=== PATIENT | male | born 1980 | race Caucasian/White ===

== ENCOUNTER → 2017-08-18 07:56 | Outpatient (CLI) | payer BC, SELFPAY ==
--- NOTE | 2017-08-18 08:06 | MRI_ITS ---
STUDY: MRI ORBITS WITH AND WITHOUT CONTRAST REASON FOR EXAM: Male, 37 years old. 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 13 ml of Gadavist contrast material was administered intravenously for the contrast portion of the examination. COMPARISON: None. FINDINGS: Normal bilateral globes. Normal bilateral optic nerve sheath complexes and optic nerves. Normal bilateral intraconal and extraconal spaces. Normal bilateral extraocular muscles. Normal optic chiasm and post-chiasmatic tracts. Normal sella turcica, pituitary gland, infundibular stalk, and hypothalamus. Normal bilateral cavernous sinuses. Normal tectal plate and pineal gland. Normal flow voids within the major intracranial circulation suggesting patency by spin echo criteria. Normal size of the ventricles and extra-axial spaces for the patient's age. Normal white matter tracts of the supratentorial brain. Normal bilateral basal ganglia. Normal thalami. There is no extra-axial fluid accumulation. Normal midbrain, ernestine and medulla. Normal cerebellum. Normal basal cisterns. MRI/Brain W/WO Contrast IMPRESSION: Normal enhanced and unenhanced MRI of the orbits. Electronically Signed: Bobby Tom MD at 10:02 EDT Tel , Service support ,
== END ==
PROVIDERS: Family Provider Family Medicine; PCP Family Medicine; Visit Provider Ophthalmology
DX: H05.20 Unspecified exophthalmos (principal); H53.461 Homonymous bilateral field defects, right side
CPT/HCPCS: 70553; A9585

== ENCOUNTER → 2024-09-19 | Outpatient (CLI) | payer BC, SELFPAY ==
[2024-09-19 15:10] LABS: Basophil# 0.06 X10^3/uL; Basophil% 0.8 % (0-1); Eosinophil# 0.34 X10^3/uL; Eosinophils% 4.6 % (0-5); Hematocrit 48.1 % (40-54); Hemoglobin 15.5 g/dL (13.0-16.5); Lymphocyte % 28.3 % (19-41); Mean Corp Hgb Conc 32.2 g/dL (32-36); Mean Corpuscular Hgb 29.4 pg (27.0-32.0); Mean Corpuscular Volume 91.1 fL (80-94); Mean Platelet Vol. 10.4 fl (6.2-12.0); Monocyte# 0.91 X10^3/uL; Monocyte% 12.3 % (0-10); NRBC Flagged by Analyzer 0 % (0-5); Neutrophil # 3.97 X10^3/uL (2.7-7.7); Neutrophil % 53.6 % (47-70); Platelet Count 317 K/mm3 (150-450); RBC Distribution Width CV 13.6 % (11.6-14.6); RBC Distribution Width SD 45.8 fl (35.1-43.9); Red Blood Count 5.28 M/mm3 (4.6-6.2); White Blood Count 7.4 K/mm3 (4.4-11.0)
[2024-09-19 16:20] LABS: Bacteria 0 SEEN /hpf (None Seen); Mucous, Urine 0 SEEN /hpf (<or=2+); Red Blood Cells-Urine 0 SEEN /hpf (0-5); Squamous Epithelial Cells - UA 0 SEEN /hpf (0-5); White Blood Cells 0 SEEN /hpf (0-5)
[2024-09-19 16:37] LABS: ALB/GLOB Ratio 1.1 RATIO (0.9-2.4); AST(SGOT) 37 U/L (<=37); Alanine Aminotransfer ALT/SGPT 61 U/L (<=46); Albumin, Serum 4.2 g/dL (3.5-5.0); Alkaline Phosphatase 80 U/L (40-129); Anion Gap 12 (5-15); BUN 12 mg/dL (4-19); BUN/Creat Ratio 11.5 RATIO (10-20); Calcium,Total 9.2 mg/dL (7.6-11.0); Carbon Dioxide 24.2 mmol/L (21.0-32.0); Chloride 103 mmol/L (98-108); Cholesterol 195 mg/dL (<=200); Creatinine, Serum 1.01 mg/dL (0.70-1.20); EST Glomerular Filtration Rate 94 (>60); Globulin 3.7 g/dL (2.2-4.2); Glucose 87 mg/dL (70-99); High Density Lipoprotein 34 mg/dL; Low Density Lipoprotein Calc. 139 mg/dL; Magnesium 2.1 mg/dL (1.5-2.2); Potassium 4.2 mmol/L (3.3-5.1); Protein, Total 7.9 g/dL (5.9-8.4); Sodium Level 139 mmol/L (133-145); Triglycerides 109 mg/dL; Very Low Density Lipoprotein 22 mg/dL (5-40); Vitamin D,25 Hydroxy 35.1 ng/mL (30-100); cholesterol:hdl ratio screen 5.67
[2024-09-19 22:25] LABS: Color, Urine Straw (Yellow); Glucose, Dipstick Normal (Normal); Ketone-Dipstick Negative (Negative); Leukocyte Esterase-Dipstick Negative /ul (Negative); Nitrite-Dipstick Negative (Negative); Occult Blood-Urine Negative /ul (Negative); Protein-Dipstick 15 mg/dl (Negative); Specific Gravity, Urine 1.005 (1.002-1.030); Urine Bilirubin Dipstick Negative (Negative); Urine Clarity Clear (Clear); Urine Urobilinogen Normal (Normal)
[2024-09-23 12:54] LABS: Hepatitis B Surface Antigen Nonreactive (Nonreactive); Hepatitis C Antibody Nonreactive (Nonreactive)
== END | disposition home or self-care (01) ==
PROVIDERS: PCP Family Medicine; Referring Provider Family Medicine; Visit Provider Family Medicine
DX: R79.89 Other specified abnormal findings of blood chemistry (principal); I10 Essential (primary) hypertension
CPT/HCPCS: 36415; 80053; 80061; 81001; 82306; 83735; 84443; 85025; 86803; 87340

== ENCOUNTER → 2024-09-25 | Outpatient (CLI) | payer BC, SELFPAY ==
[2024-09-25 18:14] LABS: Hepatitis B Surface Antibody Nonreactive
[2024-09-25 18:30] LABS: Hepatitis B Surface Antigen Nonreactive (Nonreactive); Hepatitis C Antibody Nonreactive (Nonreactive)
== END | disposition home or self-care (01) ==
LOC: MTLAB 15:17
PROVIDERS: Family Medicine; PCP Family Medicine; Referring Provider Family Medicine; Visit Provider Family Medicine
DX: R79.89 Other specified abnormal findings of blood chemistry (principal)
CPT/HCPCS: 36415; 86706; 86803; 87340

== ENCOUNTER → 2024-09-29 | Outpatient (CLI) | payer BC, SELFPAY ==
--- NOTE | 2024-09-29 15:15 | US_ITS ---
PROCEDURE: KIDNEY AND BLADDER 09/29/2024 REASON FOR EXAM: EARLY ONSET HTN TECHNIQUE: Bilateral renal ultrasound. COMPARISON: None FINDINGS: RIGHT Kidney Size: 11.3 cm x 5.7 cm x 5.8 cm Volume: 195.3 mL Cortical Thickness (if discernible): 1.3 cm (>6mm is normal) LEFT Kidney Size: 12.3 cm x 5.2 cm x 4.9 cm Volume: 163.4 mL Cortical Thickness (if discernible): 1.4 cm (>6mm is normal) Bladder: Unremarkable. No bladder wall thickening. US/Kidney and Bladder IMPRESSION: NORMAL RENAL ULTRASOUND. Reading Location: [place] [id number]
--- OUTSIDE RECORDS SUMMARY | 2024-09-29 23:59 | XMS RPT_ITS | CCD ---
Author Organization [facility] Care Team Providers Care Assembler Faucets Name Role Phone Sanchez Green MD Primary Care Provider [phone] SANCHEZ GREEN Attending SANCHEZ Watkins Primary Care Unavailable SANCHEZ GREEN Referring Unavailable SANCHEZ GREEN Primary Care Unavailable SANCHEZ GREEN Referring Unavailable SANCHEZ GEREN Primary Care Unavailable SANCHEZ GREEN Attending Unavailable SANCHEZ GREEN Primary Care Unavailable SANCHEZ GREEN Attending Unavailable SANCHEZ GREEN Primary Care Unavailable SANCHEZ GREEN Attending Unavailable SANCHEZ GREEN Primary Care Unavailable SHAN MAI Attending Unavailable SANCHEZ GREEN Referring Unavailable SANCHEZ GREEN Primary Care Unavailable CARL MASTERSON Attending Unavailable SANCHEZ GREEN Referring Unavailable SANCHEZ GREEN Primary Care Unavailable CARL MASTERSON Attending Unavailable SANCHEZ GRENE Referring Unavailable SANCHEZ GREEN Primary Care Unavailable CARL MASTERSON Attending Unavailable SANCHEZ GREEN Referring Unavailable SANCHEZ GREEN Primary Care Unavailable SANCHEZ GREEN Referring Unavailable SANCHEZ GREEN Primary Care Unavailable Sanchez Green MD Primary Care Provider [phone] Duncan Carter Referring Unavailable Duncan Carter Attending Unavailable Duncan Carter Primary Care Unavailable Duncan Carter Referring Unavailable Duncan Carter Attending Unavailable Duncan Carter Primary Care Unavailable Duncan Carter Referring Unavailable Duncan Carter Attending Unavailable Duncan Carter Primary Care Unavailable Duncan Carter Referring Unavailable Duncan Carter Attending Unavailable Sanchez Green Primary Care Unavailable Dr. Sanchez Green MD Primary Care Provider Dr. Duncan Carter MD Attending Provider Dr. Duncan Carter MD Referring Provider Allergies Allergy Classification Reported Allergen(s) Allergy Type Date of Onset Reaction(s) Facility (20 sources) Codeine; Translations: [CODEINE] Drug Allergy 5 purple spots in skin [facility] (20 sources) Ibuprofen; Translations: [IBUPROFEN] Drug Allergy 5 Swelling [facility] (1 source) Codeine Drug Allergy 7 [facility] (1 source) Ibuprofen Drug Allergy 7 [facility] Medications Current Medications Medication Drug Class(es) Dates Sig (Normalized) Sig (Original) [id number] 200 actuat albuterol 0.09 mg/actuat metered dose inhaler (10 sources) beta2-Adrenergic Agonist Start: 06-28-2023 take 2 puff(s) by mouth four times daily as needed for cough albuterol HFA (PROVENTIL HFA, VENTOLIN HFA) 90 mcg/actuation inhaler INHALE 2 PUFFS BY MOUTH 4 TIMES DAILY NEEDED FOR SHORTNESS OF BREATH OR WHEEZING OR COUGH 06/28/2023 Active BIPAP (19 sources) Start: 12-25-2023 BIPAP Initiate BiPAP @ 10 and 14 cm of water with humidification. Mask (per patient preference) optional chin strap (if indicated) , filters, tubing, humidifier and lifetime supplies. 12/25/2023 Active Start: 08-16-2023 End: 12-25-2023 BIPAP Initiate BiPAP @ 9 and 13 cm of water with humidification. Mask (per patient preference) optional chin strap (if indicated) , filters, tubing, humidifier and lifetime supplies. 08/16/2023 12/25/2023 Discontinued Start: 08-16-2023 BIPAP Initiate BiPAP @ 9 and 13 cm of water with humidification. Mask (per patient preference) optional chin strap (if indicated) , filters, tubing, humidifier and lifetime supplies. 0 08/16/2023 Active Start: 05-04-2023 End: 08-16-2023 BIPAP Initiate BiPAP @ 8 and 12 cm of water with humidification. Mask (per patient preference) optional chin strap (if indicated) , filters, tubing, humidifier and lifetime supplies. 0 05/04/2023 08/16/2023 Discontinued Start: 03-02-2020 End: 02-22-2023 BIPAP Initiate BiPAP @ cm of water with humidification. Mask (per patient preference) optional chin strap (if indicated) , filters, tubing, humidifier and lifetime supplies. Pressure at 10 and 6 1 Device 03/02/2020 02/22/2023 Discontinued Start: 03-02-2020 End: 02-22-2023 BIPAP Initiate BiPAP @ cm of water with humidification. Mask (per patient preference) optional chin strap (if indicated) , filters, tubing, humidifier and lifetime supplies. Pressure at 10 and 6 1 Device 0 03/02/2020 02/22/2023 Discontinued Start: 03-02-2020 BIPAP Initiate BiPAP @ cm of water with humidification. Mask (per patient preference) optional chin strap (if indicated) , filters, tubing, humidifier and lifetime supplies. Pressure at 10 and 6 1 Device 0 03/02/2020 Active Comment on above: Initiate BiPAP @ cm of water with humidification. Mask (per patient preference) optional chin strap (if indicated) , filters, tubing, humidifier and lifetime supplies. Pressure at 10 and 6 120 actuat budesonide 0.18 mg/actuat dry powder inhaler (10 sources) Corticosteroid Start: take 2 puff(s) by mouth once daily PULMICORT FLEXHALER 180 mcg/actuation aepb INHALE 2 PUFFS BY MOUTH ONCE DAILY WITH GOOD ORAL CARE 07/24/2023 Active ergocalciferol 1.25 mg oral capsule (1 source) Provitamin D2 Compound Start: take 1 tablet by mouth two times weekly, then take 1 tablet by mouth every week ergocalciferol 50,000 unit capsule (VITAMIN D2, DRISDOL) Indications: Vitamin D deficiency Take 1 tablet by mouth twice weekly [id number], then decrease to 1 tablet weekly. 16 capsule 3 03/28/2024 Active Start: 03-28-2024 take 1 tablet by glenys th two times weekly, then take 1 tablet by mouth every week ergocalciferol 50,000 unit capsule (VITAMIN D2, DRISDOL) Indications: Vitamin D deficiency Take 1 tablet by mouth twice weekly [id number], then decrease to 1 tablet weekly. 16 capsule 3 03/28/2024 Active fluticasone propionate 0.05 mg/actuat metered dose nasal spray (18 sources) Corticosteroid Start: 02-12-2019 take 1 spray(s) by mouth twice daily fluticasone (FLONASE) 50 mcg/actuation nasal spray Use 1 [place] in each nostril twice daily at 6AM and 9PM. Rinse mouth after use. 02/12/2019 Active Comment on above: Use 1 [place] in each nostril twice daily at 6AM and 9PM. Rinse mouth after use. loratadine 10 mg oral tablet (17 sources) take 1 tablet by mouth once daily loratadine (CLARITIN) 10 mg tablet Take 10 mg by mouth once daily. Active Comment on above: Take 10 mg by mouth once daily. losartan potassium 50 mg oral tablet (2 sources) Angiotensin 2 Receptor Tahir Start: 02-25-2024 End: 02-19-2025 take 1 tablet by mouth once daily losartan (COZAAR) 50 mg tablet Indications: Essential hypertension, benign Take 1 tablet by mouth once daily. 30 tablet 11 02/25/2024 02/19/2025 Active naproxen sodium 220 mg oral tablet (5 sources) Nonsteroidal Anti-inflammatory Drug take 1 tablet by mouth twice daily at mealtime naproxen sodium (ALEVE) 220 mg tablet Take 220 mg by mouth two times a day with meals. Active Completed/Discontinued Medications Medication Drug Class(es) Dates Sig (Normalized) Sig (Original) benzonatate 100 mg oral capsule (1 source) Non-narcotic Antitussive Start: 4 End: 4 take 1 capsule by mouth three times daily as needed for cough benzonatate (TESSALON PERLES) 100 mg capsule Indications: Bronchitis Take 1 capsule by mouth three times a day as needed for cough. 30 capsule 0 05/04/2023 08/16/2023 Discontinued FLUoxetine 10 mg oral capsule (1 source) Serotonin Reuptake Inhibitor Start: 0 End: 0 take 1 capsule by mouth once daily FLUoxetine (PROZAC) 10 mg capsule Take 1 capsule by mouth once daily. 30 capsule 3 05/15/2019 03/02/2020 Discontinued ibuprofen 200 mg oral tablet (4 sources) Nonsteroidal Anti-inflammatory Drug End: take 1 tablet by mouth every six hours as needed ibuprofen (ADVIL) 200 mg tablet Take 200 mg by mouth every 6 hours as needed for pain. 02/25/2024 Discontinued (Side Effects) methylPREDNISolone (2 sources) Corticosteroid Start: End: methylPREDNISolone (MEDROL, [place]LE,) 4 mg Dose-Pack Indications: Acute left ankle pain Follow dosing instructions, take with food. 21 tablet 08/16/2023 08/22/2023 Start: 08-16-2023 End: 08-22-2023 methylPREDNISolone (MEDROL, [place],) 4 mg Dose-Pack Indications: Acute left ankle pain Follow dosing instructions, take with food. 21 tablet 0 08/16/2023 08/22/2023 Active Problems Active Problems Problem Classification Problem Date Documented Da te Episodic/Chronic Abdominal pain (18 sources) Abdominal pain; Translations: [Unspecified abdominal pain] 12-11-2011 Episodic Anxiety disorders (2 sources) Anxiety; Translations: [Anxiety disorder, unspecified] 10-04-2016 Chronic Cardiac dysrhythmias (1 source) Ventricular bigeminy; Translations: [Other specified cardiac arrhythmias] 10-04-2016 Chronic Cardiac dysrhythmias (2 sources) Tachycardia; Translations: [Tachycardia, unspecified] Episodic Disorders of lipid metabolism (1 source) Mixed hyperlipidemia; Translations: [Mixed hyperlipidemia] 03-28-2024 Chronic Essential hypertension (20 sources) Benign essential hypertension; Translations: [Essential (primary) hypertension] Onset: 04-05-2011 04-05-2011 Chronic Immunizations and screening for infectious disease (3 sources) Needs influenza immunization; Translations: [Encounter for immunization] Episodic Nonspecific chest pain (2 sources) Chest pain; Translations: [Chest pain, unspecified] Episodic Nutritional deficiencies (5 sources) Vitamin D deficiency; Translations: [Vitamin D deficiency, unspecified] Onset: 08-16-2023 Chronic Other circulatory disease (1 source) H/O: hypertension; Translations: [Personal history of other diseases of the circulatory system] 10-04-2016 Episodic Comment on above: Not currently on med ication. Hypertension resolved with 100 pound weight loss Other connective tissue disease (13 sources) Pain in lower limb; Translations: [Pain in unspecified foot] Onset: 01-15-2024 12-25-2023 Episodic Other connective tissue disease (1 source) Plantar fasciitis; Translations: [Plantar fascial fibromatosis] 01-15-2024 Episodic Other connective tissue disease (1 source) Swelling of right foot; Translations: [Other specified soft tissue disorders] 03-02-2020 Episodic Other connective tissue disease (1 source) Pain in right foot; Translations: [Pain in right foot] 03-02-2020 Episodic Other connective tissue disease (1 source) Pain in unspecified foot; Translations: [Foot and ankle pain] Onset: 01-15-2024 Episodic Other non-traumatic joint disorders (1 source) Shoulder pain; Translations: [Pain in right shoulder] Episodic Other non-traumatic joint disorders (2 sources) Pain in left knee; Translations: [Pain in joint, lower leg] Episodic Other non-traumatic joint disorders (2 sources) Acute ankle pain; Translations: [Pain in left ankle and joints of left foot] 08-16-2023 Episodic Other non-traumatic joint disorders (1 source) Pain of right wrist; Translations: [Pain in right wrist] 01-11-2021 Episodic Other non-traumatic joint disorders (1 source) Pain in unspecified ankle and joints of unspecified foot; Translations: [Foot and ankle pain] Onset: 01-15-2024 Episodic Other nutritional; endocrine; and metabolic disorders (20 sources) Obesity; Translations: [Obesity, unspecified] Onset: 01-21-2005 Chronic Other nutritional; endocrine; and metabolic disorders (1 source) Severe obesity; Translations: [Class 3 severe obesity with body mass index (BMI) of 40.0 to 44.9 in adult, unspecified obesity type, unspecified whether serious comorbidity present (HCC)] 03-28-2024 Chronic Other screening for suspected conditions (not mental disorders or infectious disease) (2 sources) Other specified abnormal findings of blood chemistry; Translations: [Other specified abnormal findings of blood chemistry] Onset: 09-25-2024 Episodic Other upper respiratory disease (19 sources) Allergic rhinitis; Translations: [Allergic rhinitis, unspecified] Onset: 01-21-2005 02-12-2019 Chronic Residual codes; unclassified (20 sources) Obstructive sleep apnea syndrome; Translations: [Obstructive sleep apnea (adult) (pediatric)] Onset: 01-21-2005 Chronic Residual codes; unclassified (2 sources) Family history of cardiac disorder; Translations: [Family history of ischemic heart disease and other diseases of the circulatory system] Episodic Residual codes; unclassified (1 source) Sleep deprivation; Translations: [Sleep deprivation] 10-04-2016 Episodic Past or Other Problems Problem Classification Problem Date Documented Da te Episodic/Chronic Other circulatory disease (19 sources) Elevated blood-pressure reading without diagnosis of hypertension; Translations: [Elevated blood-pressure reading, without diagnosis of hypertension] Onset: 01-21-2005 Episodic Other gastrointestinal disorders (18 sources) Diarrhea; Translations: [Diarrhea, unspecified] Onset: 01-11-2012 01-11-2012 Episodic Other non-traumatic joint disorders (1 source) Pain in left ankle and joints of left foot; Translations: [Acute left ankle pain] Onset: 08-16-2023 Episodic Results Test Name Value Interpretation Reference Range Facility Hepatitis B Surface Antibody on 09-25-2024 HEP B Surf Ab Non-Reactive Normal [facility] Comment on above: Result Comment: <8.5 mIU/mL: Non-Reactive 8.5<= x <11.5 mIU/mL: Indeterminate >=11.5 mIU/mL: Reactive Non Reactive: Inconsistent with immunity less than <10 mIU/mL Reactive: Consistent with immunity greater than or equal to 10 mIU/mL Performed By: #### L 3890.6102, L3890.6301, L3890.6202 #### [facility] [address] [place], [address] Hepatitis C Antibodyon 09-25 Hepatitis C Ab Non-Reactive Normal Nonreactive [facility] Comment on above: Result Comment: Reac tive: Presumptive evidence of antibodies to HCV. Follow CDC recommendations for supplemental testing. Non-Reactive: Antibodies to HCV were not detected; does not exclude the possibility of exposure to HCV Reactive Results are presumptive evidence of antibodies to HCV. Follow CDC recommendations for supplemental testing. Order confirmation testing: HCV Quant by PCR testing - HCVPCR #[id number] Non Reactive: < 0.8 Equivocal: >/= 0.8 to < 1.0 Reactive: >/= 1.0 The CDC requires that a reactive/equivocal HCV antibody result be sent out for confirmation. HCV Quant by PCR testing. Performed By: #### L 3890.6102, L3890.6301, L3890.6202 #### [facility] [address] [place], [address] L3890.6102on 09-25-2024 HEP B Surf Ag Non-Reactive Normal Nonreactive [facility] Comment on above: Result Comment: Reac tive: Presumptive evidence of HBV. Repeatedly reactive samples must be confirmed using a neutralization test ([employer] HBsAg Confirmatory Test) Non-Reactive: HBsAg not detected; does not exclude the possibility of exposure to HBV Performed By: #### L 3890.6102, L3890.6301, L3890.6202 #### [facility] [address] [place], [address] Hepatitis C Antibodyon 09-23 Hepatitis C Ab Non-Reactive Normal Nonreactive [facility] Comment on above: Order Comment: Order Date: 09/19/24 Order Info: [id number] - CMP Order Info: [id number] - LIPID Order Info: [id number] - MG Order Info: [id number] - TSH Result Comment: Reac tive: Presumptive evidence of antibodies to HCV. Follow CDC recommendations for supplemental testing. Non-Reactive: Antibodies to HCV were not detected; does not exclude the possibility of exposure to HCV Reactive Results are presumptive evidence of antibodies to HCV. Follow CDC recommendations for supplemental testing. Order confirmation testing: HCV Quant by PCR testing - HCVPCR #[id number] Non Reactive: < 0.8 Equivocal: >/= 0.8 to < 1.0 Reactive: >/= 1.0 The CDC requires that a reactive/equivocal HCV antibody result be sent out for confirmation. HCV Quant by PCR testing. Performed By: #### L 500.4100, L501.5200, L100.0100, L501.9520, L500.4050 #### [facility] [address] [place], [address] L3890.6102on 09-23-2024 HEP B Surf Ag Non-Reactive Normal Nonreactive [facility] Comment on above: Order Comment: Order Date: 09/19/24 Order Info: [id number] - CMP Order Info: [id number] - LIPID Order Info: [id number] - MG Order Info: [id number] - TSH Result Comment: Reac tive: Presumptive evidence of HBV. Repeatedly reactive samples must be confirmed using a neutralization test ([employer] HBsAg Confirmatory Test) Non-Reactive: HBsAg not detected; does not exclude the possibility of exposure to HBV Performed By: #### L 500.4100, L501.5200, L100.0100, L501.9520, L500.4050 #### [facility] [address] [place], [address] Absolute lymphocyte countOrd ered By: Duncan Carter on 09-19-2024 Lymphocytes Auto (Unsp spec) [#/Vol] 2.10 10*3/uL 0.83-4.51 [facility] Absolute neutrophil countOrd ered By: Duncan Carter on 09-19-2024 Neutrophils (Bld) [#/Vol] 4.0 10*3/uL 2.0-7.7 [facility] Anion gap in Serum or Plasma Ordered By: Duncan Carter on 09-19-2024 Anion gap [Moles/Vol] 12 mmol/L 5-15 [facility] Automated lymphocyte count a s percentage of total leukocytesOrdered By: Duncan Carter on 09-19-2024 Lymphocytes/100 WBC Auto (Unsp spec) 28.3 % 19-41 [facility] BUN/creatinine ratioOrdered By: Duncan Carter on 09-19-2024 Urea nitrogen/Creatinine [Mass ratio] 11.5 mg/mg 10-20 [facility] Basophil percentageOrdered B y: Duncan Carter on 09-19-2024 Basophils/100 WBC (Bld) 0.8 % 0-1 [facility] Bilirubin Test strip Ql (U)O rdered By: Duncan Carter on 09-19-2024 Bilirubin Ql (U) Negative Negative [facility] Bilirubin, totalOrdered By: Duncan Carter on 09-19-2024 Bilirubin [Mass/Vol] 0.50 mg/dL 0.00-1.30 [facility] CBC W/Diff, Automatedon 05-3 0-2025 Absolute Lymph 2.10 X10 3/uL Normal 0.83-4.51 [facility] Comment on above: Order Comment: Order Date: 09/19/24 Order Info: [id number] - CBCD Performed By: #### L 500.4100, L501.5200, L100.0100, L501.9520, L500.4050 #### [facility] [address] [place], [address] Absolute Neut 4.0 X10 3/uL Normal 2.0-7.7 [facility] Comment on above: Order Comment: Order Date: 09/19/24 Order Info: [id number] - CBCD Performed By: #### L 500.4100, L501.5200, L100.0100, L501.9520, L500.4050 #### [facility] [address] [place], [address] Basophils/100 WBC (Bld) 0.8 % Normal 0-1 [facility] Comment on above: Order Comment: Order Date: 09/19/24 Order Info: [id number] - CBCD Performed By: #### L 500.4100, L501.5200, L100.0100, L501.9520, L500.4050 #### [facility] [address] [place], [address] Eosinophils/100 WBC (Bld) 4.6 % Normal 0-5 [facility] Comment on above: Order Comment: Order Date: 09/19/24 Order Info: [id number] - CBCD Performed By: #### L 500.4100, L501.5200, L100.0100, L501.9520, L500.4050 #### [facility] [address] [place], [address] Erythrocyte distribution width (RBC) [Ratio] 13.6 % Normal 11.6-14.6 [facility] Comment on above: Order Comment: Order Date: 09/19/24 Order Info: [id number] - CBCD Performed By: #### L 500.4100, L501.5200, L100.0100, L501.9520, L500.4050 #### [facility] [address] [place], [address] Hematocrit (Bld) [Volume fraction] 48.1 % Normal 40-54 [facility] Comment on above: Order Comment: Order Date: 09/19/24 Order Info: [id number] - CBCD Performed By: #### L 500.4100, L501.5200, L100.0100, L501.9520, L500.4050 #### [facility] [address] [place], [address] Hemoglobin (Bld) [Mass/Vol] 15.5 g/dL Normal 13.0-16.5 [facility] Comment on above: Order Comment: Order Date: 09/19/24 Order Info: [id number] - CBCD Performed By: #### L 500.4100, L501.5200, L100.0100, L501.9520, L500.4050 #### [facility] [address] [place], [address] IG% 0.400 Normal 0.0-0.9 [facility] Comment on above: Order Comment: Order Date: 09/19/24 Order Info: [id number] - CBCD Result Comment: IG% - Immature Granulocytes (promyelocytes, myelocytes and metamyelocytes) > 1% indicates that a LEFT SHIFT is Present. Performed By: #### L 500.4100, L501.5200, L100.0100, L501.9520, L500.4050 #### [facility] [address] [place], [address] Lymphocytes/100 WBC (Bld) 28.3 % Normal 19-41 [facility] Comment on above: Order Comment: Order Date: 09/19/24 Order Info: [id number] - CBCD Performed By: #### L 500.4100, L501.5200, L100.0100, L501.9520, L500.4050 #### [facility] [address] [place], [address] MCH (RBC) [Entitic mass] 29.4 pg Normal 27.0-32.0 [facility] Comment on above: Order Comment: Order Date: 09/19/24 Order Info: [id number]- - CBCD Performed By: #### L 500.4100, L501.5200, L100.0100, L501.9520, L500.4050 #### [facility] [address] [place], [address] MCHC (RBC) [Mass/Vol] 32.2 g/dL Normal 32-36 [facility] Comment on above: Order Comment: Order Date: 09/19/24 Order Info: [id number]- - CBCD Performed By: #### L 500.4100, L501.5200, L100.0100, L501.9520, L500.4050 #### [facility] [address] [place], [address] MCV (RBC) [Entitic vol] 91.1 fL Normal 80-94 [facility] Comment on above: Order Comment: Order Date: 09/19/24 Order Info: [id number]- - CBCD Performed By: #### L 500.4100, L501.5200, L100.0100, L501.9520, L500.4050 #### [facility] [address] [place], [address] Monocytes/100 WBC (Bld) 12.3 % High 0-10 [facility] Comment on above: Order Comment: Order Date: 09/19/24 Order Info: [id number]- - CBCD Performed By: #### L 500.4100, L501.5200, L100.0100, L501.9520, L500.4050 #### [facility] [address] [place], [address] Neutrophils/100 WBC (Bld) 53.6 % Normal 47-70 [facility] Comment on above: Order Comment: Order Date: 09/19/24 Order Info: [id number] - CBCD Performed By: #### L 500.4100, L501.5200, L100.0100, L501.9520, L500.4050 #### [facility] [address] [place], [address] Nucleated RBC (Bld) [#/Vol] 0 10*3/uL Normal 0-5 [facility] Comment on above: Order Comment: Order Date: 09/19/24 Order Info: [id number] - CBCD Performed By: #### L 500.4100, L501.5200, L100.0100, L501.9520, L500.4050 #### [facility] [address] [place], [address] Platelet mean volume (Bld) [Entitic vol] 10.4 fL Normal 6.2-12.0 [facility] Comment on above: Order Comment: Order Date: 09/19/24 Order Info: [id number] - CBCD Performed By: #### L 500.4100, L501.5200, L100.0100, L501.9520, L500.4050 #### [facility] [address] [place], [address] Platelets (Bld) [#/Vol] 317 10*3/uL Normal 150-450 [facility] Comment on above: Order Comment: Order Date: 09/19/24 Order Info: [id number] - CBCD Performed By: #### L 500.4100, L501.5200, L100.0100, L501.9520, L500.4050 #### [facility] [address] [place], [address] RBC (Bld) [#/Vol] 5.28 10*6/uL Normal 4.6-6.2 [facility] Comment on above: Order Comment: Order Date: 09/19/24 Order Info: [id number] - CBCD Performed By: #### L 500.4100, L501.5200, L100.0100, L501.9520, L500.4050 #### [facility] [address] [place], [address] RDW SD 45.8 fl High 35.1-43.9 [facility] Comment on above: Order Comment: Order Date: 09/19/24 Order Info: [id number] - CBCD Performed By: #### L 500.4100, L501.5200, L100.0100, L501.9520, L500.4050 #### [facility] [address] [place], [address] WBC (Bld) [#/Vol] 7.4 10*3/uL Normal 4.4-11.0 [facility] Comment on above: Order Comment: Order Date: 09/19/24 Order Info: [id number] - CBCD Performed By: #### L 500.4100, L501.5200, L100.0100, L501.9520, L500.4050 #### [facility] [address] [place], [address] Calculated very low density lipoprotein (VLDL) cholesterol measurementOrdered By: Duncan Carter on 09-19-2024 Calculated very low density lipoprotein (VLDL) cholesterol measurement 22 mg/dL 5-40 [facility] Carbon dioxide, total [Moles /volume] in Central venous bloodOrdered By: Duncan Carter on 09-19-2024 CO2 [Moles/Vol] 24.2 mmol/L 21.0-32.0 [facility] Chloride assayOrdered By: Noni Carter on 09-19-2024 Chloride [Moles/Vol] 103 mmol/L 98-108 [facility] Comprehensive Metabolic Prof ilon 09-19-2024 Albumin [Mass/Vol] 4.2 g/dL Normal 3.5-5.0 [facility] Comment on above: Order Comment: Order Date: 09/19/24 Order Info: [id number] - CMP Order Info: [id number] - LIPID Order Info: [id number] - MG Order Info: [id number] - TSH Performed By: #### L 500.4100, L501.5200, L100.0100, L501.9520, L500.4050 #### [facility] [address] [place], [address] Albumin/Globulin [Mass ratio] 1.1 {ratio} Normal 0.9-2.4 [facility] Comment on above: Order Comment: Order Date: 09/19/24 Order Info: [id number]- - CMP Order Info: [id number] - LIPID Order Info: [id number] - MG Order Info: 3 - TSH Performed By: #### L 500.4100, L501.5200, L100.0100, L501.9520, L500.4050 #### [facility] [address] [place], [address] ALK PHOS 80 U/L Normal 40-129 [facility] Comment on above: Order Comment: Order Date: 09/19/24 Order Info: [id number]- - CMP Order Info: [id number] - LIPID Order Info: [id number] - MG Order Info: 3015-3 - TSH Performed By: #### L 500.4100, L501.5200, L100.0100, L501.9520, L500.4050 #### [facility] [address] [place], [address] ALT [Catalytic activity/Vol] 61 U/L High <=46 [facility] Comment on above: Order Comment: Order Date: 09/19/24 Order Info: [id number] - CMP Order Info: [id number] - LIPID Order Info: [id number] - MG Order Info: [id number] - TSH Performed By: #### L 500.4100, L501.5200, L100.0100, L501.9520, L500.4050 #### [facility] [address] [place], [address] AST [Catalytic activity/Vol] 37 U/L Normal <=37 [facility] Comment on above: Order Comment: Order Date: 09/19/24 Order Info: [id number] - CMP Order Info: [id number] - LIPID Order Info: [id number] - MG Order Info: 3016-3 - TSH Performed By: #### L 500.4100, L501.5200, L100.0100, L501.9520, L500.4050 #### [facility] [address] [place], [address] Bilirubin [Mass/Vol] 0.50 mg/dL Normal 0.00-1.30 [facility] Comment on above: Order Comment: Order Date: 09/19/24 Order Info: [id number]- - CMP Order Info: [id number] - LIPID Order Info: [id number] - MG Order Info: 3016-3 - TSH Performed By: #### L 500.4100, L501.5200, L100.0100, L501.9520, L500.4050 #### [facility] [address] [place], [address] BUN/CRE 11.5 RATIO Normal 10-20 [facility] Comment on above: Order Comment: Order Date: 09/19/24 Order Info: [id number] - CMP Order Info: [id number] - LIPID Order Info: [id number] - MG Order Info: [id number] - TSH Performed By: #### L 500.4100, L501.5200, L100.0100, L501.9520, L500.4050 #### [facility] [address] [place], [address] Calcium [Mass/Vol] 9.2 mg/dL Normal 7.6-11.0 [facility] Comment on above: Order Comment: Order Date: 09/19/24 Order Info: [id number] - CMP Order Info: - LIPID Order Info: [id number] - MG Order Info: 3016-3 - TSH Performed By: #### L 500.4100, L501.5200, L100.0100, L501.9520, L500.4050 #### [facility] [address] [place], [address] Chloride [Moles/Vol] 103 mmol/L Normal 98-108 [facility] Comment on above: Order Comment: Order Date: 09/19/24 Order Info: [id number] - CMP Order Info: - LIPID Order Info: [id number] - MG Order Info: 3015-3 - TSH Performed By: #### L 500.4100, L501.5200, L100.0100, L501.9520, L500.4050 #### [facility] [address] [place], [address] CO2 [Moles/Vol] 24.2 mmol/L Normal 21.0-32.0 [facility] Comment on above: Order Comment: Order Date: 09/19/24 Order Info: [id number] - CMP Order Info: - LIPID Order Info: [id number] - MG Order Info: [id number] - TSH Performed By: #### L 500.4100, L501.5200, L100.0100, L501.9520, L500.4050 #### [facility] [address] [place], [address] Creatinine [Mass/Vol] 1.01 mg/dL Normal 0.70-1.20 [facility] Comment on above: Order Comment: Order Date: 09/19/24 Order Info: 86-1 - CMP Order Info: [id number] - LIPID Order Info: [id number] - MG Order Info: 3016-3 - TSH Performed By: #### L 500.4100, L501.5200, L100.0100, L501.9520, L500.4050 #### [facility] [address] [place], [address] GAP 12 Normal 5-15 [facility] Comment on above: Order Comment: Order Date: 09/19/24 Order Info: [id number] - CMP Order Info: [id number] - LIPID Order Info: [id number] - MG Order Info: 3016-3 - TSH Performed By: #### L 500.4100, L501.5200, L100.0100, L501.9520, L500.4050 #### [facility] [address] [place], [address] GFR/1.73 sq M.predicted among non-blacks MDRD (S/P/Bld) [Vol rate/Area] 94 mL/min/{1.73_m2} Normal >60 [facility] Comment on above: Order Comment: Order Date: 09/19/24 Order Info: [id number] - CMP Order Info: [id number] - LIPID Order Info: [id number] - MG Order Info: 3015-3 - TSH Result Comment: mL/m in/1.73m2 CKD-EPI Creatinine Equation (2020) Performed By: #### L 500.4100, L501.5200, L100.0100, L501.9520, L500.4050 #### [facility] [address] [place], [address] Globulin (S) [Mass/Vol] 3.7 g/dL Normal 2.2-4.2 [facility] Comment on above: Order Comment: Order Date: 09/19/24 Order Info: [id number] - CMP Order Info: [id number] - LIPID Order Info: [id number] - MG Order Info: [id number] - TSH Performed By: #### L 500.4100, L501.5200, L100.0100, L501.9520, L500.4050 #### [facility] [address] [place], [address] Glucose [Mass/Vol] 87 mg/dL Normal 70-99 [facility] Comment on above: Order Comment: Order Date: 09/19/24 Order Info: [id number] - CMP Order Info: - LIPID Order Info: [id number] - MG Order Info: [id number] - TSH Performed By: #### L 500.4100, L501.5200, L100.0100, L501.9520, L500.4050 #### [facility] [address] [place], [address] Potassium [Moles/Vol] 4.2 mmol/L Normal 3.3-5.1 [facility] Comment on above: Order Comment: Order Date: 09/19/24 Order Info: [id number]- - CMP Order Info: - LIPID Order Info: [id number] - MG Order Info: [id number] - TSH Performed By: #### L 500.4100, L501.5200, L100.0100, L501.9520, L500.4050 #### [facility] [address] [place], [address] Sodium [Moles/Vol] 139 mmol/L Normal 133-145 [facility] Comment on above: Order Comment: Order Date: 09/19/24 Order Info: [id number]- - CMP Order Info: [id number] - LIPID Order Info: [id number] - MG Order Info: [id number] - TSH Performed By: #### L 500.4100, L501.5200, L100.0100, L501.9520, L500.4050 #### [facility] [address] [place], [address] T PROT 7.9 g/dL Normal 5.9-8.4 [facility] Comment on above: Order Comment: Order Date: 09/19/24 Order Info: [id number] - CMP Order Info: [id number] - LIPID Order Info: [id number] - MG Order Info: [id number] - TSH Performed By: #### L 500.4100, L501.5200, L100.0100, L501.9520, L500.4050 #### [facility] [address] [place], [address] Urea nitrogen [Mass/Vol] 12 mg/dL Normal 4-19 [facility] Comment on above: Order Comment: Order Date: 09/19/24 Order Info: [id number] - CMP Order Info: [id number] - LIPID Order Info: [id number] - MG Order Info: [id number] - TSH Performed By: #### L 500.4100, L501.5200, L100.0100, L501.9520, L500.4050 #### [facility] [address] [place], [address] Eosinophil percentageOrdered By: Duncan Carter on 09-19-2024 Eosinophils/100 WBC (Bld) 4.6 % 0-5 [facility] Erythrocyte distribution wid th ratioOrdered By: Duncan Carter on 09-19-2024 Erythrocyte distribution width (RBC) [Ratio] 13.6 % 11.6-14.6 [facility] Erythrocyte distribution wid th standard deviationOrdered By: Duncan Carter on 09-19-2024 Erythrocyte distribution width (RBC) [Ratio] 45.8 fl High 35.1-43.9 [facility] Glomerular filtration rate ( GFR) estimation/1.73 sq m using serum, plasma, or whole bOrdered By: Duncan Carter on 09-19-2024 GFR/1.73 sq M.predicted among non-blacks MDRD (S/P/Bld) [Vol rate/Area] 94 mL/min/{1.73_m2} >60 [facility] Comment on above: mL/min/1.73m2 CKD-EP I Creatinine Equation (2020) Hematocrit Auto (Bld) [Volum e fraction]Ordered By: Duncan Carter on 09-19-2024 Hematocrit (Bld) [Volume fraction] 48.1 % 40-54 [facility] Hemoglobin measurementOrdere d By: Duncan Carter on 09-19-2024 Hemoglobin (Bld) [Mass/Vol] 15.5 g/dL 13.0-16.5 [facility] Immature granulocytes/100 WB C Auto (Bld)Ordered By: Duncan Carter on 09-19-2024 Immature granulocytes/100 WBC (Bld) 0.400 % 0.0-0.9 [facility] Comment on above: IG% - Immature Granu locytes (promyelocytes, myelocytes and metamyelocytes) > 1% indicates that a LEFT SHIFT is Present. Ketones Test strip Ql (U)Ord ered By: Duncan Carter on 09-19-2024 Ketones Ql (U) Negative Negative [facility] LDL calc ser/plasOrdered By: Duncan Carter on 09-19-2024 Cholesterol in LDL [Mass/Vol] 139 mg/dL [facility] Comment on above: Fwxvsflsum=388-042 m g/dL & Higher Hdve=058 mg/dL or greater Laboratory - Chemistry and C hemistry - challengeOrdered By: Duncan Carter on 09-19-2024 AST [Catalytic activity/Vol] 37 U/L <38 [facility] - Microbiology an d Antimicrobial susceptibilityOrdered By: Duncan Carter on 09-19-2024 HBV surface Ag Ql (S) Non-Reactive Nonreactive [facility] Comment on above: Reactive: Presumptiv e evidence of HBV. Repeatedly reactive samples must be confirmed using a neutralization test ([employer] HBsAg Confirmatory Test)Non-Reactive: HBsAg not detected; does not exclude the possibility of exposure to HBV Lipid Profileon 09-19-2024 CHOL:HDL 5.67 Normal [facility] Comment on above: Order Comment: Order Date: 09/19/24 Order Info: [id number] - CMP Order Info: [id number] - LIPID Order Info: [id number] - MG Order Info: [id number] - TSH Performed By: #### L 500.4100, L501.5200, L100.0100, L501.9520, L500.4050 #### [facility] [address] [place], [address] Cholesterol [Mass/Vol] 195 mg/dL Normal <=200 [facility] Comment on above: Order Comment: Order Date: 09/19/24 Order Info: [id number] - CMP Order Info: [id number] - LIPID Order Info: [id number] - MG Order Info: 3 - TSH Result Comment: Chol esterol level, Desirable <200 mg/dL Borderline high cholesterol 200-239 mg/dL High cholesterol >=240 mg/dL Recommendations of the NCEP Adult Treatment Panel for the following risk-cutoff thresholds for the [place] population. Performed By: #### L 500.4100, L501.5200, L100.0100, L501.9520, L500.4050 #### [facility] [address] [place], [address] Cholesterol in HDL [Mass/Vol] 34 mg/dL Low [facility] Comment on above: Order Comment: Order Date: 09/19/24 Order Info: [id number] - CMP Order Info: [id number] - LIPID Order Info: [id number] - MG Order Info: 3 - TSH Result Comment: Kristal onal Cholesterol Education Program (NCEP) guidelines: <40 mg/dL: Low HDL-cholesterol (major risk factor for CHD) >= 60 mg/dL: High HDL-cholesterol (negative risk factor for CHD) HDL-cholesterol is affected by a number of factors, e.g. smoking, exercise, hormones, sex and age. Performed By: #### L 500.4100, L501.5200, L100.0100, L501.9520, L500.4050 #### [facility] [address] [place], [address] Cholesterol in LDL [Mass/Vol] 139 mg/dL Normal [facility] Comment on above: Order Comment: Order Date: 09/19/24 Order Info: [id number] - CMP Order Info: [id number] - LIPID Order Info: [id number] - MG Order Info: 3015-3 - TSH Result Comment: Bord ydjipa=266-151 mg/dL Higher Dckx=763 mg/dL or greater Performed By: #### L 500.4100, L501.5200, L100.0100, L501.9520, L500.4050 #### [facility] [address] [place], [address] Cholesterol in VLDL [Mass/Vol] 22 mg/dL Normal 5-40 [facility] Comment on above: Order Comment: Order Date: 09/19/24 Order Info: [id number] - CMP Order Info: - LIPID Order Info: [id number] - MG Order Info: [id number] - TSH Performed By: #### L 500.4100, L501.5200, L100.0100, L501.9520, L500.4050 #### [facility] [address] [place], [place], [address] Triglyceride [Mass/Vol] 109 mg/dL Normal [facility] Comment on above: Order Comment: Order Date: 09/19/24 Order Info: [id number] - CMP Order Info: - LIPID Order Info: [id number] - MG Order Info: [id number] - TSH Result Comment: The drugs N-Acetylcysteine and Metamizole may falsely depress this assay. Normal range: <150 mg/dL Borderline High: 150-199 mg/dL High: 200-499 mg/dL Very High: >500 mg/dL Performed By: #### L 500.4100, L501.5200, L100.0100, L501.9520, L500.4050 #### [facility] [address] [place], [place], [id number] MCV (mean corpuscular volume ) determinationOrdered By: Duncan Carter on 09-19-2024 MCV (RBC) [Entitic vol] 91.1 fL 80-94 [facility] Magnesiumon 09-19-2024 Magnesium [Mass/Vol] 2.1 mg/dL Normal 1.5-2.2 [facility] Comment on above: Order Comment: Order Date: 09/19/24 Order Info: [id number] - CMP Order Info: - LIPID Order Info: [id number] - MG Order Info: [id number] - TSH Performed By: #### L 500.4100, L501.5200, L100.0100, L501.9520, L500.4050 #### [facility] [address] [place], [address] Magnesium measurement (mass/ volume)Ordered By: Duncan Carter on 09-19-2024 Magnesium (Unsp spec) [Mass/Vol] 2.1 mg/dL 1.5-2.2 [facility] Mean corpuscular hemoglobin (MCH) determinationOrdered By: Duncan Carter on 09-19-2024 MCH (RBC) [Entitic mass] 29.4 pg 27.0-32.0 [facility] Mean corpuscular hemoglobin concentration (MCHC) determinationOrdered By: Duncan Carter on 09-19-2024 MCHC (RBC) [Mass/Vol] 32.2 g/dL 32-36 [facility] Mean platelet volume determi nationOrdered By: Duncan Carter on 09-19-2024 Platelet mean volume (Bld) [Entitic vol] 10.4 fL 6.2-12.0 [facility] Microscopic analysis of urin e for red blood cells (RBC)Ordered By: Duncan Carter on 09-19-2024 Microscopic analysis of urine for red blood cells (RBC) 0 SEEN /hpf 0-5 [facility] Monocyte percentageOrdered B y: Duncan Carter on 09-19-2024 Monocytes/100 WBC (Bld) 12.3 % High 0-10 [facility] Mucus LM Ql (Urine sed)Order ed By: Duncan Carter on 09-19-2024 Mucus Ql (Urine sed) 0 SEEN /hpf [facility] Neutrophil percentageOrdered By: Duncan Carter on 09-19-2024 Neutrophils/100 WBC (Bld) 53.6 % 47-70 [facility] Nitrite Test strip Ql (U)Ord ered By: Duncan Carter on 09-19-2024 Nitrite Ql (U) Negative Negative [facility] Nucleated red blood cell per centageOrdered By: Duncan Carter on 09-19-2024 Nucleated RBC/100 WBC (Bld) [Ratio] 0 % 0-5 [facility] Platelet countOrdered By: Noni Carter on 09-19-2024 Platelets (Bld) [#/Vol] 317 10*3/uL 150-450 [facility] Potassium measurement (mass/ volume)Ordered By: Duncan Carter on 09-19-2024 Potassium (Unsp spec) [Mass/Vol] 4.2 mmol/L 3.3-5.1 [facility] Protein Test strip Ql (U)Ord ered By: Duncan Carter on 09-19-2024 Protein Ql (U) 15 mg/dl High Negative [facility] RBC Auto (Bld) [#/Vol]Ordere d By: Duncan Carter on 09-19-2024 RBC (Bld) [#/Vol] 5.28 10*6/uL 4.6-6.2 [facility] Screening total cholesterol/ high density lipoprotein (HDL) cholesterol ratioOrdered By: Duncan Carter on 09-19-2024 Cholesterol.total/Cholest maci in HDL [Mass ratio] 5.67 {ratio} [facility] Serum creatinine measurement (mass/volume)Ordered By: Duncan Carter on 09-19-2024 Creatinine [Mass/Vol] 1.01 mg/dL 0.70-1.20 [facility] Serum globulin measurementOr dered By: Duncan Carter on 09-19-2024 Globulin (S) [Mass/Vol] 3.7 g/dL 2.2-4.2 [facility] Serum glucose measurement (m ass/volume)Ordered By: Duncan Carter on 09-19-2024 Glucose [Mass/Vol] 87 mg/dL 70-99 [facility] Serum or plasma alanine hearn otransferase (ALT) measurementOrdered By: Duncan Carter on 09-19-2024 ALT [Catalytic activity/Vol] 61 U/L High <47 [facility] Serum or plasma albumin bernice urement (mass/volume)Ordered By: Duncan Carter on 09-19-2024 Albumin [Mass/Vol] 4.2 g/dL 3.5-5.0 [facility] Serum or plasma albumin/glob ulin mass ratioOrdered By: Duncan Carter on 09-19-2024 Albumin/Globulin [Mass ratio] 1.1 {ratio} 0.9-2.4 [facility] Serum or plasma alkaline kaity sphatase measurementOrdered By: Duncan Carter on 09-19-2024 ALP [Catalytic activity/Vol] 80 U/L 40-129 [facility] Serum or plasma calcium bernice urement (mass/volume)Ordered By: Duncan Carter on 09-19-2024 Calcium [Mass/Vol] 9.2 mg/dL 7.6-11.0 [facility] Serum or plasma cholesterol in HDL measurement (mass/volume)Ordered By: Duncan Carter on 09-19-2024 Cholesterol in HDL [Mass/Vol] 34 mg/dL Low >40 [facility] Comment on above: National Cholesterol Education Program (NCEP) guidelines:<40 mg/dL: Low HDL-cholesterol (major risk factor for CHD)>= 60 mg/dL: High HDL-cholesterol (negative risk factor for CHD)HDL-cholesterol is affected by a number of factors, e.g. smoking, exercise, hormones, sex and age. Serum or plasma cholesterol measurement (mass/volume)Ordered By: Duncan Carter on 09-19-2024 Cholesterol [Mass/Vol] 195 mg/dL <201 [facility] Comment on above: Cholesterol level, D esirable <200 mg/dLBorderline high cholesterol 200-239 mg/dLHigh cholesterol >=240 mg/dLRecommendations of the NCEP Adult Treatment Panel for the following risk-cutoff thresholds for the [place] population. Serum or plasma urea nitroge n measurement (mass/volume)Ordered By: Duncan Carter on 09-19-2024 Urea nitrogen [Mass/Vol] 12 mg/dL 4-19 [facility] Sodium levelOrdered By: Duncan Carter on 09-19-2024 Sodium [Moles/Vol] 139 mmol/L 133-145 [facility] Squamous epithelial cells de tection in urine sediment by light microscopyOrdered By: Duncan Carter on 09-19-2024 Epithelial cells.squamous LM Ql (Urine sed) 0 SEEN /hpf 0-5 [facility] TSH DL <= 0.005 mIU/L QnOrde red By: Duncan Carter on 09-19-2024 TSH Qn 1.100 uIU/mL 0.300-4.200 [facility] Thyroid Stim Hormone (TSH)on 09-19-2024 TSH 1.100 uIU/mL Normal 0.300-4.200 [facility] Comment on above: Order Comment: Order Date: 09/19/24 Order Info: [id number] - CMP Order Info: [id number] - LIPID Order Info: [id number] - MG Order Info: 3016-3 - TSH Performed By: #### L 500.4100, L501.5200, L100.0100, L501.9520, L500.4050 #### [facility] [address] [place], [address] Total proteinOrdered By: Matthew Carter on 09-19-2024 Protein [Mass/Vol] 7.9 g/dL 5.9-8.4 [facility] Triglycerides measurementOrd ered By: Duncan Carter on 09-19-2024 Triglyceride [Mass/Vol] 109 mg/dL <199 [facility] Comment on above: The drugs N-Acetylcy steine and Metamizole may falsely depress this assay. Normal range: <150 mg/dLBorderline High: 150-199 mg/dLHigh: 200-499 mg/dLVery High: >500 mg/dL Urinalysis, Completeon 09-19 BACTERIA 0 SEEN Normal None Seen [facility] Comment on above: Order Comment: CLEAN CATCH Performed By: #### L 3890.6102, L3890.6301, L506.1001, L400.0001 #### [facility] [address] [place], [address] EPI,SQUAMOUS 0 SEEN Normal 0-5 [facility] Comment on above: Order Comment: CLEAN CATCH Performed By: #### L 3890.6102, L3890.6301, L506.1001, L400.0001 #### [facility] [address] [place], [address] Mucus Ql (Urine sed) 0 SEEN Normal [facility] Comment on above: Order Comment: CLEAN CATCH Performed By: #### L 3890.6102, L3890.6301, L506.1001, L400.0001 #### [facility] [address] [place], [address] RBC 0 SEEN Normal 0-5 [facility] Comment on above: Order Comment: CLEAN CATCH Performed By: #### L 3890.6102, L3890.6301, L506.1001, L400.0001 #### [facility] [address] [place], [address] WBC 0 SEEN Normal 0-5 [facility] Comment on above: Order Comment: CLEAN CATCH Performed By: #### L 3890.6102, L3890.6301, L506.1001, L400.0001 #### [facility] [address] [place], [address] Urine clarityOrdered By: Matthew Carter on 09-19-2024 Clarity (U) Clear Clear [facility] Urine color determinationOrd ered By: Duncan Carter on 09-19-2024 Color (U) Straw Yellow [facility] Urine glucose detectionOrder ed By: Duncan Carter on 09-19-2024 Glucose Ql (U) Normal mg/dl Normal [facility] Urine leukocyte esterase det ection by dipstickOrdered By: Duncan Carter on 09-19-2024 Leukocyte esterase Test strip Ql (U) Negative Negative [facility] Urine pHOrdered By: Duncan davis on 09-19-2024 pH (U) 6.0 [pH] 5.0 - 8.0 [facility] Urine sediment bacteria coun t by microscopy (number/high power field)Ordered By: Duncan Carter on 09-19-2024 Bacteria LM.HPF (Urine sed) [#/Area] 0 /[HPF] None Seen [facility] Urine specific gravity measu rementOrdered By: Duncan Carter on 09-19-2024 Specific gravity (U) [Rel density] 1.005 1.002-1.030 [facility] Urine urobilinogen measureme ntOrdered By: Duncan Carter on 09-19-2024 Urobilinogen Ql (U) Normal mg/dl Normal [facility] Vitamin D,25 Hydroxyon 09-19 Vitamin D 25-OH 35.1 ng/mL Normal 30-100 [facility] Comment on above: Order Comment: Order Date: 09/19/24 Order Info: [id number] - CMP Order Info: [id number] - LIPID Order Info: [id number] - MG Order Info: [id number] - TSH Result Comment: Mirta min D Status Deficiency: <20 ng/mL (50nmol/L) Insufficiency: 20-30 ng/mL (50-75 nmol/L) Sufficiency: 30-100 ng/mL (75-250 nmol/L) Toxicity: >100 ng/mL (>250 nmol/L) Performed By: #### L 3890.6102, L3890.6301, L506.1001, L400.0001 #### [facility] [place], [address] White blood cell (WBC) count Ordered By: Duncan Carter on 09-19-2024 WBC (Bld) [#/Vol] 7.4 10*3/uL 4.4-11.0 [facility] White blood cell countOrdere d By: Duncan Carter on 09-19-2024 White blood cell count 0 SEEN /hpf 0-5 [facility] CNOVon 02-25-2024 CNOV Office Visit (FAMPWS) ---- CELSO SHINE ([id number]) 1980 M Date Time Provider Department 02/25/24 1:20 PM SANCHEZ GREEN FAMPWS During your visit today, we recorded the following information about you: Pulse Respiration Blood pressure Weight 64/minute 16/minute 132/86 144.2 kg Height 1.88 m Sanchez Green MD 02/25/2024 3:00 PM Signed Chief Complaint Patient presents with: Wellness HPI Celso Shine is a 43 year old male who presents here today for physical. Here today for routine wellness. Continues to still work, no real hobbies at this time outside of work. GI/Uro - Notes some loose stool after having a fatty meal. Denies no other issues. No urinary complaints at this time, does not have to get up at night to urinate. Allergies: Uses Claritin 10 mg daily and Flonase. Uses Albuterol inhaler prn and Pulmicort inhaler. Stable on his current regimen at this time. Does have PFT testing scheduled in the next week. Follows with Dr. Rodriguez. BARRIE: Uses BiPAP at 10-14 cm water, uses this most nights. Does not some issues his mask leaking and causing him to wake up with dry eyes which is bothersome. He's supposed to get a new mask this week. Does feel much better when he uses the BiPAP at night. When he doesn't use it he feels hung over, groggy and at times has headaches. HTN: Occasionally checks BP at home, noting high with readings 140/80, sometimes lower. No chest pains, dizziness, or SOB. Not on any bp medications currently. Is agreeable to start medications. Diet/Exercise - Watching his calorie intake, eating around 1975 calories per day. Eating more protein, vegetables and watching his carb intake. Denies much exercise. Vit D - Hx of Vitamin D deficiency. Has been advised to use OTC Vit D 2,000 international unit(s) once daily. Recent labs was normal range. Been working with [facility], Dr. Mai and PT for foot and ankle pain. Completed his last PT appt and doing exercises at home. Foot does feel much better when he does the exercises. Uses Naproxen prn for pain. HM - Agreeable to Flu/Covid vaccine. Past medical history, appointments, medications, allergies reviewed. Previous Medical History PAST MEDICAL HISTORY Diagnosis Date Abdominal pain, other specified site Allergic rhinitis due to other allergen Unspecified essential hypertension Previous Surgical History PAST SURGICAL HISTORY Procedure Laterality Date COLONOSCOPY FLX DX W/COLLJ SPEC WHEN PFRMD 01/11/2012 Colonoscopy PALATE/UVULA SURGERY UNLISTED 2000 Somnoplasty PAST SURGICAL HISTORY OF 2000 wisdom teeth RHINP PRIM LATANDALAR CRTLGSAND/ELVTN NASAL TI 2001 Rhinoplasty Family History FAMILY HISTORY Problem Relation Age of Onset Heart Father First [place] age 45, Coronary Artery Disease Father 45 Lipids Father Stroke Maternal Grandmother Coronary Artery Disease Maternal Grandfather Colon Cancer Maternal Grandfather Coronary Artery Disease Paternal Grandfather MO x 4, not sure age of first MO Patient Allergies ALLERGIES Allergen Reactions Codeine purple spots apprea on skin Ibuprofen Swelling Current Medications Current Outpatient Medications on File Prior to Visit Medication Sig ibuprofen (ADVIL) 200 mg tablet Take 200 mg by mouth every 6 hours as needed for pain. naproxen sodium (ALEVE) 220 mg tablet Take 220 mg by mouth two times a day with meals. BIPAP Initiate BiPAP @ 10 and 14 cm of water with humidification. Mask (per patient preference) optional chin strap (if indicated) , filters, tubing, humidifier and lifetime supplies. PULMICORT FLEXHALER 180 mcg/actuation aepb INHALE 2 PUFFS BY MOUTH ONCE DAILY WITH GOOD ORAL CARE albuterol HFA (PROVENTIL HFA, VENTOLIN HFA) 90 mcg/actuation inhaler INHALE 2 PUFFS BY MOUTH 4 TIMES DAILY NEEDED FOR SHORTNESS OF BREATH OR WHEEZING OR COUGH loratadine (CLARITIN) 10 mg tablet Take 10 mg by mouth once daily. fluticasone (FLONASE) 50 mcg/actuation nasal spray Use 1 [place] in each nostril twice daily at 6AM and 9PM. Rinse mouth after use. No current facility-administer ed medications on file prior to visit. Social History Social History Tobacco Use Smoking status: Never Smokeless tobacco: Never Vaping Use Vaping status: Never Used Substance Use Topics Alcohol use: Yes Comment: occ Drug use: No EXAM: BP 132/86 Pulse 64 Resp 16 Ht 188 cm (6' 2) Wt (!) 144.2 kg (317 lb 14.5 oz) BMI 40.82 kg/m? General Appearance: Well appearing, alert, in no acute distress, well-hydrated, well nourished. and Obese. Lungs: Lungs clear to auscultation. No wheezing, rhonchi, rales.. Heart: RRR without murmur, gallop, or rubs. No ectopy. Health Maintenance List BP Controlled (<130/80) Never done Influenza Vaccine(1) due on 12/23/2023 Covid-19 Vaccine(2023- season) due on 12/23/2023 Depression Screening due (more content not included)... Normal [facility] CNTHERAPYon 02-19-2024 CNTHERAPY OT/PT/Speech Visit (PTWS) ---- REAGANCELSO Moira ([id number]) 1980 M Date Time Provider Department 02/19/24 7:45 AM CARL MASTERSON PTWS Date Time Provider Department [place] 02/19/2024 7:45 AM [id number], CORE[facility] PTWS Bartolo Fatima Reason for Visit: PT Discharge [752] Primary Visit Diagnosis:Foot and ankle pain [M79.673, M25.579] Allergies As of Date: 02/19/2024 Noted Allergy Reaction CODEINE 01/21/2005 Comments: purple spots apprea on skin IBUPROFEN 03/27/2015 7 - Swelling Date Reviewed: 01/15/2024 Reviewed by: Nereyda Landon MA - Fully Assessed Prescriptions as of 02/19/2024 - ibuprofen (ADVIL) 200 mg tablet Take 200 mg by mouth every 6 hours as needed for pain. - naproxen sodium (ALEVE) 220 mg tablet Take 220 mg by mouth two times a day with meals. - BIPAP Initiate BiPAP @ 10 and 14 cm of water with humidification. Mask (per patient preference) optional chin strap (if indicated) , filters, tubing, humidifier and lifetime supplies. - PULMICORT FLEXHALER 180 mcg/actuation aepb INHALE 2 PUFFS BY MOUTH ONCE DAILY WITH GOOD ORAL CARE - albuterol HFA (PROVENTIL HFA, VENTOLIN HFA) 90 mcg/actuation inhaler INHALE 2 PUFFS BY MOUTH 4 TIMES DAILY NEEDED FOR SHORTNESS OF BREATH OR WHEEZING OR COUGH - loratadine (CLARITIN) 10 mg tablet Take 10 mg by mouth once daily. - fluticasone (FLONASE) 50 mcg/actuation nasal spray Use 1 [place] in each nostril twice daily at 6AM and 9PM. Rinse mouth after use. Meds Comments as of 12/25/2023: Uses Tylenol prn or Aleve prn and Benadryl prn Biology Instructor: Therapy (PT/OT/Speech/Resp) ID: [id number] 02/19/2024 8:14 AM Author: CARL MASTERSON Signed by CARL MASTERSON PT on 02/19/2024 at 8:14 AM Document text: Program_ID:[id number] Access Code: [email or web address] URL: [email or web address] Date: 02-19-2024 Prepared By: Carl Masterson Program Notes Exercises - Supine Ankle Circles - 1 x daily - 7 x weekly - 5 sets - 10 reps - Supine Ankle Circles - 1 x daily - 7 x weekly - 5 sets - 10 reps - Supine Ankle Pumps - 1 x daily - 7 x weekly - 5 sets - 10 reps - Gastroc Stretch on Wall - 1 x daily - 7 x weekly - 5 sets - 1 reps - Gastroc Stretch on Wall - 1 x daily - 7 x weekly - 5 sets - 1 reps - Towel Scrunches - 1 x daily - 7 x weekly - 3 sets - 10 reps - Seated Great Toe Extension - 1 x daily - 7 x weekly - 3 sets - 10 reps - Seated Lesser Toes Extension - 1 x daily - 7 x weekly - 3 sets - 10 reps - Long Sitting Ankle Inversion with Anchored Resistance - 1 x daily - 7 x weekly - 3 sets - 10 reps - Long Sitting Ankle Inversion with Anchored Resistance - 1 x daily - 7 x weekly - 3 sets - 10 reps - Arch Lifting - 1 x daily - 7 x weekly - 3 sets - 10 reps - Alternating Single Leg Balance - Foot Behind - 1 x daily - 7 x weekly - 3 sets - 10 reps Normal [facility] THERAPY NTon 02-19-2024 THERAPY NT HNO ID: [id number] Author: CARL MASTERSON PT Service: ? Author Type: Physical Therapist Type: Therapy (PT/OT/Speech/Resp) Filed: 02/19/2024 08:14 Note Text: Program_ID:[id number] Access Code: [email or web address] URL: [email or web address] Date: 02-19-2024 Prepared By: Carl Masterson Program Notes Exercises - Supine Ankle Circles - 1 x daily - 7 x weekly - 5 sets - 10 reps - Supine Ankle Circles - 1 x daily - 7 x weekly - 5 sets - 10 reps - Supine Ankle Pumps - 1 x daily - 7 x weekly - 5 sets - 10 reps - Gastroc Stretch on Wall - 1 x daily - 7 x weekly - 5 sets - 1 reps - Gastroc Stretch on Wall - 1 x daily - 7 x weekly - 5 sets - 1 reps - Towel Scrunches - 1 x daily - 7 x weekly - 3 sets - 10 reps - Seated Great Toe Extension - 1 x daily - 7 x weekly - 3 sets - 10 reps - Seated Lesser Toes Extension - 1 x daily - 7 x weekly - 3 sets - 10 reps - Long Sitting Ankle Inversion with Anchored Resistance - 1 x daily - 7 x weekly - 3 sets - 10 reps - Long Sitting Ankle Inversion with Anchored Resistance - 1 x daily - 7 x weekly - 3 sets - 10 reps - Arch Lifting - 1 x daily - 7 x weekly - 3 sets - 10 reps - Alternating Single Leg Balance - Foot Behind - 1 x daily - 7 x weekly - 3 sets - 10 reps Normal [facility] CNTHERAPYon 01-29-2024 CNTHERAPY OT/PT/Speech Visit (PTWS) ---- CELSO SHINE ([id number]) 1980 M Date Time Provider Department 01/29/24 8:30 AM CARL MASTERSON PTWS Date Time Provider Department Center 01/29/2024 8:30 AM [id number], CORE[facility] PTWS Bartolo Fatima Reason for Visit: Physical Therapy [503] Primary Visit Diagnosis:Foot and ankle pain [M79.673, M25.579] Allergies As of Date: 01/29/2024 Noted Allergy Reaction CODEINE 01/21/2005 Comments: purple spots apprea on skin IBUPROFEN 03/27/2015 7 - Swelling Date Reviewed: 01/15/2024 Reviewed by: Nereyda Landon MA - Fully Assessed Prescriptions as of 01/29/2024 - ibuprofen (ADVIL) 200 mg tablet Take 200 mg by mouth every 6 hours as needed for pain. - naproxen sodium (ALEVE) 220 mg tablet Take 220 mg by mouth two times a day with meals. - BIPAP Initiate BiPAP @ 10 and 14 cm of water with humidification. Mask (per patient preference) optional chin strap (if indicated) , filters, tubing, humidifier and lifetime supplies. - PULMICORT FLEXHALER 180 mcg/actuation aepb INHALE 2 PUFFS BY MOUTH ONCE DAILY WITH GOOD ORAL CARE - albuterol HFA (PROVENTIL HFA, VENTOLIN HFA) 90 mcg/actuation inhaler INHALE 2 PUFFS BY MOUTH 4 TIMES DAILY NEEDED FOR SHORTNESS OF BREATH OR WHEEZING OR COUGH - loratadine (CLARITIN) 10 mg tablet Take 10 mg by mouth once daily. - fluticasone (FLONASE) 50 mcg/actuation nasal spray Use 1 [place] in each nostril twice daily at 6AM and 9PM. Rinse mouth after use. Meds Comments as of 12/25/2023: Uses Tylenol prn or Aleve prn and Benadryl prn Biology Instructor: Therapy (PT/OT/Speech/Resp) ID: [id number] 01/29/2024 8:51 AM Author: CARL MASTERSON Signed by CARL MASTERSON PT on 01/29/2024 at 8:51 AM Document text: Program_ID:[id number] Access Code: [email or web address] URL: [email or web address] Date: 01-29-2024 Prepared By: Carl Masterson Program Notes Exercises - Supine Ankle Circles - 1 x daily - 7 x weekly - 5 sets - 10 reps - Supine Ankle Circles - 1 x daily - 7 x weekly - 5 sets - 10 reps - Supine Ankle Pumps - 1 x daily - 7 x weekly - 5 sets - 10 reps - Gastroc Stretch on Wall - 1 x daily - 7 x weekly - 5 sets - 1 reps - Gastroc Stretch on Wall - 1 x daily - 7 x weekly - 5 sets - 1 reps - Towel Scrunches - 1 x daily - 7 x weekly - 3 sets - 10 reps - Seated Great Toe Extension - 1 x daily - 7 x weekly - 3 sets - 10 reps - Seated Lesser Toes Extension - 1 x daily - 7 x weekly - 3 sets - 10 reps Normal [facility] THERAPY NTon 01-29-2024 THERAPY NT HNO ID: [id number] Author: CARL MASTERSON, PT Service: ? Author Type: Physical Therapist Type: Therapy (PT/OT/Speech/Resp) Filed: 01/29/2024 08:51 Note Text: Program_ID:[id number] Access Code: [email or web address] URL: [email or web address] Date: 01-29-2024 Prepared By: Carl Masterson Program Notes Exercises - Supine Ankle Circles - 1 x daily - 7 x weekly - 5 sets - 10 reps - Supine Ankle Circles - 1 x daily - 7 x weekly - 5 sets - 10 reps - Supine Ankle Pumps - 1 x daily - 7 x weekly - 5 sets - 10 reps - Gastroc Stretch on Wall - 1 x daily - 7 x weekly - 5 sets - 1 reps - Gastroc Stretch on Wall - 1 x daily - 7 x weekly - 5 sets - 1 reps - Towel Scrunches - 1 x daily - 7 x weekly - 3 sets - 10 reps - Seated Great Toe Extension - 1 x daily - 7 x weekly - 3 sets - 10 reps - Seated Lesser Toes Extension - 1 x daily - 7 x weekly - 3 sets - 10 reps Normal [facility] CNOVon 01-15-2024 CNOV Office Visit (PODIWS) ---- CELSO SHINE ([id number]) 1980 M Date Time Provider Department 01/15/24 11:45 AM SHAN MAI PODIWS During your visit today, we recorded the following information about you: Nereyda Landon MA 01/15/2024 12:32 PM Signed Patient presents with: Right Foot - Pain, Swelling Left Foot - Pain, Swelling AMB ROOMING INTAKE FLOWSHEET DATA Pain Pain Level: 2 Pain Location: Foot-Left Description: Sharp Duration Amount of Time: 1 Duration Units: Months Frequency: Intermittent Intervention/Comfor t measure: Medication, Relaxation, Cold, Other: See comment (Tristen wrap) Comments: RICE Patient states about a month ago he started having pain and swelling in both feet. No specific injury, State his left foot is worse than his right. He has wrapping with an tristen wrap, elevating , rest, and will help and then his right foot will start to do the same thing. Icing does not help. Taking Aleve for the pain and helps some. At times he has been taking every [address] Green. X-rays done 12/25/23 Shan Mai 01/15/2024 12:32 PM Signed Consultation requested by Dr. Green for an opinion regarding foot pain. My final recommendations will be communicated back to the requesting physician by way of shared Medical record or letter to requesting physician via US mail. Initial Podiatric Office Visit: Chief Complaint: This 43 year old male who presents with chief complaint:b/l ankle pain L>R HPI Patient presents to clinic for evaluation of b/l feet Complains of pain along the medial isntep Has been present since July but noticed the pain started to increase over the past few weeks. Patient states the pain is incresaing the longer he is on his foot. Has treated with icing, over the counter medication. PAIN EVALUATION 01/15/2024 0607 01/15/2024 1121 Pain Level: 4 2 Pain Location: Other: See Comment Foot-Left Description: Dull;Stiffness;Tend erness Sharp Duration Amount of Time: 1 1 Duration Units: Months Months Frequency: Intermittent Intermittent Intervention/Comfor t measure: Medication;Position ing;Other: See comment Medication;Relaxati on;Cold;Other: See comment Tristen wrap Comments: RICE -- Hemoglobin A1C (%) Date Value 02/22/2023 5.3 12/24/2020 5.1 09/27/2017 5.2 12/06/2015 5.4 PCP: Sanchez Green MD PAST MEDICAL HISTORY Diagnosis Date Abdominal pain, other specified site Allergic rhinitis due to other allergen Unspecified essential hypertension Current Outpatient Medications Medication Sig BIPAP Initiate BiPAP @ 10 and 14 cm of water with humidification. Mask (per patient preference) optional chin strap (if indicated) , filters, tubing, humidifier and lifetime supplies. PULMICORT FLEXHALER 180 mcg/actuation aepb INHALE 2 PUFFS BY MOUTH ONCE DAILY WITH GOOD ORAL CARE albuterol HFA (PROVENTIL HFA, VENTOLIN HFA) 90 mcg/actuation inhaler INHALE 2 PUFFS BY MOUTH 4 TIMES DAILY NEEDED FOR SHORTNESS OF BREATH OR WHEEZING OR COUGH loratadine (CLARITIN) 10 mg tablet Take 10 mg by mouth once daily. fluticasone (FLONASE) 50 mcg/actuation nasal spray Use 1 [place] in each nostril twice daily at 6AM and 9PM. Rinse mouth after use. ibuprofen (ADVIL) 200 mg tablet Take 200 mg by mouth every 6 hours as needed for pain. naproxen sodium (ALEVE) 220 mg tablet Take 220 mg by mouth two times a day with meals. No current facility-administer ed medications for this visit. ALLERGIES Allergen Reactions Codeine purple spots apprea on skin Ibuprofen Swelling PAST SURGICAL HISTORY Procedure Laterality Date COLONOSCOPY FLX DX W/COLLJ SPEC WHEN PFRMD 01/11/2012 Colonoscopy PALATE/UVULA SURGERY UNLISTED 2000 Somnoplasty PAST SURGICAL HISTORY OF 2000 wisdom teeth RHINP PRIM LATANDALAR CRTLGSAND/ELVTN NASAL TI 2001 Rhinoplasty FAMILY HISTORY Problem Relation Age of Onset Heart Father First [place] age 45, Coronary Artery Disease Father 45 Lipids Father Stroke Maternal Grandmother Coronary Artery Disease Maternal Grandfather Colon Cancer Maternal Grandfather Coronary Artery Disease Paternal Grandfather MO x 4, not sure age of first MO Social History Tobacco Use Smoking status: Never Smokeless tobacco: Never Vaping Use Vaping status: Never Used Substance Use Topics Alcohol use: Yes Comment: occ Drug use: No REVIEW OF SYSTEMS GENERAL: Negative for Malaise, significant weight loss, fever RESPIRATORY: Negative for cough, wheezing and shortness of breath CARDIOVASCULAR: Negative for chest pain, leg swelling and palpitations GI: Negative for abdominal discomfort, blood in stools or black stools and change in bowel habits : Negative for dysuria, frequency and incontinence MUSCULOSKELETAL: Negative for joint pain or swelling, back pain, and muscle pain. SKIN: Negative for lesions, rash, and itching. (more content not included)... Normal [facility] CNTHERAPYon 01-15-2024 CNTHERAPY OT/PT/Speech Visit (PTWS) ---- CELSO SHINE ([id number]) 1980 M Date Time Provider Department 01/15/24 10:15 AM CARL MASTERSON PTWS Date Time Provider Department Center 01/15/2024 10:15 AM [id number], COREY PTWS Bartolo Fatima Reason for Visit: PT Eval [747] Visit Diagnosis:Foot and ankle pain [M79.673, M25.579] Allergies As of Date: 01/15/2024 Noted Allergy Reaction CODEINE 01/21/2005 Comments: purple spots apprea on skin IBUPROFEN 03/27/2015 7 - Swelling Date Reviewed: 01/15/2024 Reviewed by: Nereyda Landon MA - Fully Assessed Prescriptions as of 01/15/2024 - ibuprofen (ADVIL) 200 mg tablet Take 200 mg by mouth every 6 hours as needed for pain. - naproxen sodium (ALEVE) 220 mg tablet Take 220 mg by mouth two times a day with meals. - BIPAP Initiate BiPAP @ 10 and 14 cm of water with humidification. Mask (per patient preference) optional chin strap (if indicated) , filters, tubing, humidifier and lifetime supplies. - PULMICORT FLEXHALER 180 mcg/actuation aepb INHALE 2 PUFFS BY MOUTH ONCE DAILY WITH GOOD ORAL CARE - albuterol HFA (PROVENTIL HFA, VENTOLIN HFA) 90 mcg/actuation inhaler INHALE 2 PUFFS BY MOUTH 4 TIMES DAILY NEEDED FOR SHORTNESS OF BREATH OR WHEEZING OR COUGH - loratadine (CLARITIN) 10 mg tablet Take 10 mg by mouth once daily. - fluticasone (FLONASE) 50 mcg/actuation nasal spray Use 1 [place] in each nostril twice daily at 6AM and 9PM. Rinse mouth after use. Meds Comments as of 12/25/2023: Uses Tylenol prn or Aleve prn and Benadryl prn Biology Instructor: Therapy (PT/OT/Speech/Resp) ID: [id number] 01/15/2024 10:52 AM Author: CARL MASTERSON Signed by CARL MASTERSON PT on 01/15/2024 at 10:52 AM Document text: Program_ID:[id number] Access Code: [email or web address] URL: [email or web address] Date: 01-15-2024 Prepared By: Carl Masterson Program Notes Exercises - Supine Ankle Circles - 1 x daily - 7 x weekly - 5 sets - 10 reps - Supine Ankle Circles - 1 x daily - 7 x weekly - 5 sets - 10 reps - Supine Ankle Pumps - 1 x daily - 7 x weekly - 5 sets - 10 reps - Gastroc Stretch on Wall - 1 x daily - 7 x weekly - 5 sets - 1 reps - Gastroc Stretch on Wall - 1 x daily - 7 x weekly - 5 sets - 1 reps Normal [facility] THERAPY NTon 01-15-2024 THERAPY NT HNO ID: [id number] Author: CARL MASTERSON, PT Service: ? Author Type: Physical Therapist Type: Therapy (PT/OT/Speech/Resp) Filed: 01/15/2024 10:52 Note Text: Program_ID:[id number] Access Code: [email or web address] URL: [email or web address] Date: 01-15-2024 Prepared By: Carl Masterson Program Notes Exercises - Supine Ankle Circles - 1 x daily - 7 x weekly - 5 sets - 10 reps - Supine Ankle Circles - 1 x daily - 7 x weekly - 5 sets - 10 reps - Supine Ankle Pumps - 1 x daily - 7 x weekly - 5 sets - 10 reps - Gastroc Stretch on Wall - 1 x daily - 7 x weekly - 5 sets - 1 reps - Gastroc Stretch on Wall - 1 x daily - 7 x weekly - 5 sets - 1 reps Normal [facility] CNOVon 12-25-2023 CNOV Office Visit (FAMPWS) ---- CELSO SHINE ([id number]) 1980 M Date Time Provider Department 12/25/23 9:40 AM [facility] During your visit today, we recorded the following information about you: Pulse Respiration Blood pressure Weight 68/minute 18/minute 118/84 140.7 kg Sanchez Green MD 12/25/2023 11:07 AM Signed Chief Complaint Patient presents with: Foot Pain (Midfoot) HPI Celso Shine is a 43 year old male who presents here today for an acute visit. Pt here today with c/o of right foot pain that is similar to the left foot pain he previously experienced. Was previously seen back in July 2023 for left ankle pain and swelling, that was red and hot to touch. He was tested for gout, and uric acid level was normal. Treated with prednisone, which minimally helped. Started about 1 month ago. Pain located in his top midfoot area and radiating to his lateral ankle. Notes that he has pain up into his calf, described as tightness. Does note the ankle swelling and pain has improved since he made his appt. Still having top midfoot pain and swelling, hard to get into a shoe. Notes some erythema that is localized. Everything at this time seems similar to the pain he was experiencing in his left foot other than the calf tightness. Has been using Aleve for pain. Pain at times is a 5/10, when at rest or not on it a 2-3/10. Pain described at times as a sharp, throbbing, tenderness and stabbing. Nothing seems to make it better or worse. Past medical history, appointments, medications, allergies reviewed. Previous Medical History PAST MEDICAL HISTORY No date: Abdominal pain, other specified site No date: Allergic rhinitis due to other allergen No date: Unspecified essential hypertension Previous Surgical History PAST SURGICAL HISTORY 01/11/2012: COLONOSCOPY FLX DX W/COLLJ SPEC WHEN PFRMD Comment: Colonoscopy 2000: PALATE/UVULA SURGERY UNLISTED Comment: Somnoplasty 2001: PAST SURGICAL HISTORY OF Comment: wisdom teeth 2001: RHINP PRIM LATANDALAR CRTLGSAND/ELVTN NASAL TI Comment: Rhinoplasty Family History FAMILY HISTORY Problem Relation Age of Onset Heart Father First [place] age 45, Coronary Artery Disease Father 45 Lipids Father Stroke Maternal Grandmother Coronary Artery Disease Maternal Grandfather Colon Cancer Maternal Grandfather Coronary Artery Disease Paternal Grandfather MO x 4, not sure age of first MO Patient Allergies ALLERGIES Allergen Reactions Codeine purple spots apprea on skin Ibuprofen Swelling Current Medications Current Outpatient Medications on File Prior to Visit Medication Sig PULMICORT FLEXHALER 180 mcg/actuation aepb INHALE 2 PUFFS BY MOUTH ONCE DAILY WITH GOOD ORAL CARE albuterol HFA (PROVENTIL HFA, VENTOLIN HFA) 90 mcg/actuation inhaler INHALE 2 PUFFS BY MOUTH 4 TIMES DAILY NEEDED FOR SHORTNESS OF BREATH OR WHEEZING OR COUGH BIPAP Initiate BiPAP @ 9 and 13 cm of water with humidification. Mask (per patient preference) optional chin strap (if indicated) , filters, tubing, humidifier and lifetime supplies. loratadine (CLARITIN) 10 mg tablet Take 10 mg by mouth once daily. fluticasone (FLONASE) 50 mcg/actuation nasal spray Use 1 [place] in each nostril twice daily at 6AM and 9PM. Rinse mouth after use. No current facility-administer ed medications on file prior to visit. Social History Social History Tobacco Use Smoking status: Never Smokeless tobacco: Never Vaping Use Vaping status: Never Used Substance Use Topics Alcohol use: Yes Comment: occ Drug use: No EXAM: BP 118/84 (BP Site: Right Arm, BP Position: Sitting, BP Cuff Size: Large Adult) Pulse 68 Resp 18 Wt (!) 140.7 kg (310 lb 3 oz) BMI 40.92 kg/m? General Appearance: Well appearing, alert, in no acute distress, well-hydrated, well nourished. and Obese. Feet: right: tanderness lateral proximal midfoot and lateral ankle; pain with flexion of ankel.. Health Maintenance List BP Controlled (<130/80) Never done Influenza Vaccine(1) due on 12/23/2023 Annual PCP Team Chronic Disease Visit due on 08/15/2024 Depression Screening due on 08/15/2024 Anxiety Screening due on 08/15/2024 DTaP,Tdap,Td Vaccine(3 - Td or Tdap) due on 03/07/2027 Lipid Screening due on 02/23/2028 Hepatitis C Screening Completed HIV Screening Completed Covid-19 Vaccine Completed HPV Vaccine Aged Out Data reviewed None ASSESSMENT/PLAN: 1. Foot and ankle pain - ICD9: 729.5, 719.47, ICD10: M79.673, M25.579 - CONSULT TO PODIATRY - CONSULT TO PHYSICAL THERAPY - XR FOOT GENERAL 3V AP/LAT/OBL RIGHT - XR ANKLE GENERAL 3V AP/LAT/OBL RIGHT Continue prn alleve for pain Follow up prn Medical Decision Making: Problems: Low: Acute, uncomplicated illness or injury Data: Unique test result(s) reviewed: 1 Risk: Low: Low risk from testing/treatment Medical Decisi (more content not included)... Normal [facility] No Panel Informationon 12-24 IMPRESSION: No radiographic evidence of acute osseous injury. Dorsal calcaneal enthesopathy. Poultry Sexer: MARIBEL Transcribe Date/Time: Dec 25 2023 3:58P Dictated by : ALISSA FERRARI MD This examination was interpreted and the report reviewed and electronically signed by: ALISSA FERRARI MD on Dec 25 2023 3:59PM EST DIVISION OF RADIOLOGY Radiology Study observation (narrative) [facility] No Panel InformationOrdered By: Ccf Provider on 12-25-2023 [facility] XR ANKLE 3V AP/LAT/OBL RTon 12-25-2023 XR ANKLE 3V AP/LAT/OBL RT * * *Final Rep ort* * * DATE OF EXAM: Dec 25 2023 10:46AM WOX 5297 - XR ANKLE 3V AP/LAT/OBL RT / PROCEDURE REASON: multiple diagnoses * * * * Physician Interpretation * * * * TITLE: XR ANKLE 3V AP/LAT/OBL RT, XR FOOT 3V AP/LAT/OBL RT CLINICAL INDICATION: Foot and ankle pain TECHNIQUE: 3 view radiographic study of the right foot and right ankle COMPARISON: Correlation made to radiograph dated 08/16/2019 FINDINGS: No acute fracture or dislocation is identified. Dorsal calcaneal enthesophyte. Talar dome and ankle mortise appear intact. Joint spaces preserved. IMPRESSION: No radiographic evidence of acute osseous injury. Dorsal calcaneal enthesopathy. [facility] Transcribe Date/Time: Dec 25 2023 3:58P Dictated by : ALISSA FERRARI MD This examination was interpreted and the report reviewed and electronically signed by: ALISSA FERRARI MD on Dec 25 2023 3:59PM EST [id number] [id number] Normal [facility] XR Ankle - right AP and Late ral and obliqueon 12-25-2023 * * *Final Report* * * DATE OF EXAM: Dec 25 2023 10:46AM WOX 5297 - XR ANKLE 3V AP/LAT/OBL RT / PROCEDURE REASON: multiple diagnoses * * * * Physician Interpretation * * * * TITLE: XR ANKLE 3V AP/LAT/OBL RT, XR FOOT 3V AP/LAT/OBL RT CLINICAL INDICATION: Foot and ankle pain TECHNIQUE: 3 view radiographic study of the right foot and right ankle COMPARISON: Correlation made to radiograph dated 08/16/2019 FINDINGS: No acute fracture or dislocation is identified. Dorsal calcaneal enthesophyte. Talar dome and ankle mortise appear intact. Joint spaces preserved. DIVISION OF RADIOLOGY Provider, [facility] - 12/25/2023 * * *Final Report* * * DATE OF EXAM: Dec 25 2023 10:46AM WOX 5297 - XR ANKLE 3V AP/LAT/OBL RT / PROCEDURE REASON: multiple diagnoses * * * * Physician Interpretation * * * * TITLE: XR ANKLE 3V AP/LAT/OBL RT, XR FOOT 3V AP/LAT/OBL RT CLINICAL INDICATION: Foot and ankle pain TECHNIQUE: 3 view radiographic study of the right foot and right ankle COMPARISON: Correlation made to radiograph dated 08/16/2019 FINDINGS: No acute fracture or dislocation is identified. Dorsal calcaneal enthesophyte. Talar dome and ankle mortise appear intact. Joint spaces preserved. IMPRESSION IMPRESSION: No radiographic evidence of acute osseous injury. Dorsal calcaneal enthesopathy. Poultry Sexer[facility] Transcribe Date/Time: Dec 25 2023 3:58P Dictated by : ALISSA FERRARI MD This examination was interpreted and the report reviewed and electronically signed by: ALISSA FERRARI MD on Dec 25 2023 3:59PM [facility] XR FOOT 3V AP/LAT/OBL RTon 0 12-25-2023 XR FOOT 3V AP/LAT/OBL RT * * *Final Repo rt* * * DATE OF EXAM: Dec 25 2023 10:46AM WOX 5337 - XR FOOT 3V AP/LAT/OBL RT / PROCEDURE REASON: multiple diagnoses * * * * Physician Interpretation * * * * TITLE: XR ANKLE 3V AP/LAT/OBL RT, XR FOOT 3V AP/LAT/OBL RT CLINICAL INDICATION: Foot and ankle pain TECHNIQUE: 3 view radiographic study of the right foot and right ankle COMPARISON: Correlation made to radiograph dated 08/16/2019 FINDINGS: No acute fracture or dislocation is identified. Dorsal calcaneal enthesophyte. Talar dome and ankle mortise appear intact. Joint spaces preserved. IMPRESSION: No radiographic evidence of acute osseous injury. Dorsal calcaneal enthesopathy. Poultry Sexer: [facility] Transcribe Date/Time: Dec 25 2023 3:58P Dictated by : ALISSA FERRARI MD This examination was interpreted and the report reviewed and electronically signed by: ALISSA FERRARI MD on Dec 25 2023 3:59PM EST [id number] ACN Normal [facility] XR Foot - right AP and Later al and obliqueon 12-25-2023 * * *Final Report* * * DATE OF EXAM: Dec 25 2023 10:46AM WOX 5337 - XR FOOT 3V AP/LAT/OBL RT / PROCEDURE REASON: multiple diagnoses * * * * Physician Interpretation * * * * TITLE: XR ANKLE 3V AP/LAT/OBL RT, XR FOOT 3V AP/LAT/OBL RT CLINICAL INDICATION: Foot and ankle pain TECHNIQUE: 3 view radiographic study of the right foot and right ankle COMPARISON: Correlation made to radiograph dated 08/16/2019 FINDINGS: No acute fracture or dislocation is identified. Dorsal calcaneal enthesophyte. Talar dome and ankle mortise appear intact. Joint spaces preserved. DIVISION OF RADIOLOGY Provider, [facility] - 12/25/2023 * * *Final Report* * * DATE OF EXAM: Dec 25 2023 10:46AM WOX 5337 - XR FOOT 3V AP/LAT/OBL RT / PROCEDURE REASON: multiple diagnoses * * * * Physician Interpretation * * * * TITLE: XR ANKLE 3V AP/LAT/OBL RT, XR FOOT 3V AP/LAT/OBL RT CLINICAL INDICATION: Foot and ankle pain TECHNIQUE: 3 view radiographic study of the right foot and right ankle COMPARISON: Correlation made to radiograph dated 08/16/2019 FINDINGS: No acute fracture or dislocation is identified. Dorsal calcaneal enthesophyte. Talar dome and ankle mortise appear intact. Joint spaces preserved. IMPRESSION IMPRESSION: No radiographic evidence of acute osseous injury. Dorsal calcaneal enthesopathy. Poultry Sexer: [facility] Transcribe Date/Time: Dec 25 2023 3:58P Dictated by : ALISSA FERRARI MD This examination was interpreted and the report reviewed and electronically signed by: ALISSA FERRARI MD on Dec 25 2023 3:59PM EST [facility] XR Ankle - left AP and Later al and obliqueon 08-22-2023 IMPRESSION: No acute radiographic abnormalities seen in the left ankle. Poultry Sexer: [facility] Transcribe Date/Time: Aug 22 2023 5:03P Dictated by : HYACINTH MAYORGA MD This examination was interpreted and the report reviewed and electronically signed by: HYACINTH MAYORGA MD on Aug 22 2023 5:05PM [facility] DIVISION OF RADIOLOGY * * *Final Report* * * DATE OF EXAM: Aug 16 2023 11:19AM WOX 5298 - XR ANKLE 3V AP/LAT/OBL LT / PROCEDURE REASON: Acute left ankle pain * * * * Physician Interpretation * * * * EXAM TITLE: XR ANKLE 3V AP/LAT/OBL LT EXAM DATE/TIME: 08/16/2023 11:19 AM COMPARISON: None. CLINICAL INDICATION/HISTORY: Acute ankle pain. TECHNIQUE: AP, mortise and lateral views of the left ankle are presented. FINDINGS: No acute fractures or subluxations are noted. There is a tiny cystic focus in the distal fibula. The mortise spaces are maintained. There is no ankle joint effusion. The mineralization of the bones is normal. There is no significant soft tissue swelling. DIVISION OF RADIOLOGY Provider, [facility] - 08/22/2023 * * *Final Report* * * DATE OF EXAM: Aug 16 2023 11:19AM WOX 5298 - XR ANKLE 3V AP/LAT/OBL LT / PROCEDURE REASON: Acute left ankle pain * * * * Physician Interpretation * * * * EXAM TITLE: XR ANKLE 3V AP/LAT/OBL LT EXAM DATE/TIME: 08/16/2023 11:19 AM COMPARISON: None. CLINICAL INDICATION/HISTORY: Acute ankle pain. TECHNIQUE: AP, mortise and lateral views of the left ankle are presented. FINDINGS: No acute fractures or subluxations are noted. There is a tiny cystic focus in the distal fibula. The mortise spaces are maintained. There is no ankle joint effusion. The mineralization of the bones is normal. There is no significant soft tissue swelling. IMPRESSION IMPRESSION: No acute radiographic abnormalities seen in the left ankle. Poultry Sexer: [facility] Transcribe Date/Time: Aug 22 2023 5:03P Dictated by : HYACINTH MAYORGA MD This examination was interpreted and the report reviewed and electronically signed by: HYACINTH MAYORGA MD on Aug 22 2023 5:05PM EST [facility] XR Ankle - left AP and Later al and obliqueOrdered By: Ccf Provider on 08-22-2023 [facility] 25(OH)D3 SerPl-mCncon 2023 25-hydroxyvitamin D3 [Mass/Vol] 31.9 ng/mL Normal 31.0-80.0 [facility] Comment on above: Order Comment: Speci men Type: BLOOD SPECIMENOrdering Facility: [facility] Address: [address] [place] [address] Result Comment: Clas sification of 25 [place] Vitamin D status: Deficiency/Insufficiency: < or = 30 ng/ml. Sufficiency/Optimal Levels: 31-80 ng/mL Toxicity: > 100 ng/mL. Test performed by chemiluminescent immunoassay. Performed By: #### 1 989-3 ####[facility] LABCLIA [id number] [place] [address] [place] 25-hydroxyvitamin D3 [Mass/V ol]on 08-16-2023 Interpretation and review of laboratory results Normal [facility] The reference range interval was based on an analysis of samples from healthy adults and may not pertain to children from 0-18 years old. [facility] Basic metabolic 2000 panelon 08-16-2023 Anion gap [Moles/Vol] 13 mmol/L 9 - 18 mmol/L [facility] Calcium [Mass/Vol] 10.1 mg/dL 8.5 - 10. 2 mg/dL [facility] Chloride [Moles/Vol] 103 mmol/L 97 - 10 5 mmol/L [facility] CO2 [Moles/Vol] 25 mmol/L 22 - 30 mmol/L [facility] Creatinine [Mass/Vol] 0.89 mg/dL 0.73 - 1.22 mg/dL [facility] GFR/1.73 sq M.predicted among non-blacks MDRD (S/P/Bld) [Vol rate/Area] 109 mL/min/{1.73_m2} - PINF [facility] Comment on above: Estimated Glomerular Filtration Rate (eGFR) is calculated using the 2020 CKD-EPI creatinine equation. This equation utilizes serum creatinine, sex, and age as parameters. The creatinine assay has traceable calibration to isotope dilution-mass spectrometry. Refer to KDIGO guidelines for clinical interpretation. In patients with unstable renal function, e.g. those with acute kidney injury, the eGFR may not accurately reflect actual GFR. Glucose [Mass/Vol] 82 mg/dL 74 - 99 mg/dL [facility] Comment on above: The [place] Diabete s Association (ADA) provides guidance for cutoff values for fasting glucose and random glucose. The ADA defines fasting as no caloric intake for at least 8 hours. Fasting plasma glucose results between 100 to 125 mg/dL indicate increased risk for diabetes (prediabetes). Fasting plasma glucose results greater than or equal to 126 mg/dL meet the criteria for diagnosis of diabetes. In the absence of unequivocal hyperglycemia, results should be confirmed by repeat testing. In a patient with classic symptoms of hyperglycemia or hyperglycemic crisis, random plasma glucose results greater than or equal to 200 mg/dL meet the criteria for diagnosis of diabetes. Reference: Standards of Medical Care in Diabetes 2016, [place] Diabetes Association. Diabetes Care. 2016.39(Suppl 1). Potassium [Moles/Vol] 4.0 mmol/L 3.7 - 5.1 mmol/L [facility] Sodium [Moles/Vol] 141 mmol/L 136 - 144 mmol/L [facility] Urea nitrogen [Mass/Vol] 18 mg/dL 9 - 24 mg/d L [facility] Anion gap [Moles/Vol] 13 mmol/L Normal 9-18 [facility] Comment on above: Order Comment: Speci men Type: BLOOD SPECIMENOrdering Facility: [facility] Address: [address] [place] [address] Performed By: #### 2 432-2, 3083-04 ####[facility] LABCLIA [id number] [place] [address] [place] Calcium [Mass/Vol] 10.1 mg/dL Normal 8.5-10.2 [facility] Comment on above: Order Comment: Speci men Type: BLOOD SPECIMENOrdering Facility: [facility] Address: [address] [id number] Performed By: #### 2 4321-2, 3083-04 ####[facility] LABCLIA [id number] [address] [address] [place] Chloride [Moles/Vol] 103 mmol/L Normal 97-105 [facility] Comment on above: Order Comment: Speci men Type: BLOOD SPECIMENOrdering Facility: [facility] Address: [address] [place] [address] Performed By: #### 2 4321-2, 3083-04 ####[facility] LABCLIA [id number] [place] [address] [place] CO2 [Moles/Vol] 25 mmol/L Normal 22-30 [facility] Comment on above: Order Comment: Speci men Type: BLOOD SPECIMENOrdering Facility: [facility] Address: [address] [place] [address] Performed By: #### 2 432-2, 3083-04 ####[facility] LABIA [id number] [place] [address] [place] Creatinine [Mass/Vol] 0.89 mg/dL Normal 0.73-1.22 [facility] Comment on above: Order Comment: Speci men Type: BLOOD SPECIMENOrdering Facility: [facility] Address: [address] [place] [address] Performed By: #### 2 432-2, 3083-04 ####[facility] LABIA [id number] [address] [place] Creatinine and Glomerular filtration rate.predicted panel (S/P/Bld) 109 mL/min/1.73m??? Normal >=60 [facility] Comment on above: Order Comment: Speci men Type: BLOOD SPECIMENOrdering Facility: [facility] Address: [address] [place] [address] Result Comment: Cecilia mated Glomerular Filtration Rate (eGFR) is calculated using the 2020 CKD-EPI creatinine equation. This equation utilizes serum creatinine, sex, and age as parameters. The creatinine assay has traceable calibration to isotope dilution-mass spectrometry. Refer to KDIGO guidelines for clinical interpretation. In patients with unstable renal function, e.g. those with acute kidney injury, the eGFR may not accurately reflect actual GFR. Performed By: #### 2 4321-2, 3083-04 ####[facility] LABCLIA [id number] [address] [address] [place] Glucose [Mass/Vol] 82 mg/dL Normal 74-99 [facility] Comment on above: Order Comment: Speci men Type: BLOOD SPECIMENOrdering Facility: [facility] Address: [address] [place] [address] Result Comment: The [place] Diabetes Association (ADA) provides guidance for cutoff values for fasting glucose and random glucose. The ADA defines fasting as no caloric intake for at least 8 hours. Fasting plasma glucose results between 100 to 125 mg/dL indicate increased risk for diabetes (prediabetes). Fasting plasma glucose results greater than or equal to 126 mg/dL meet the criteria for diagnosis of diabetes. In the absence of unequivocal hyperglycemia, results should be confirmed by repeat testing. In a patient with classic symptoms of hyperglycemia or hyperglycemic crisis, random plasma glucose results greater than or equal to 200 mg/dL meet the criteria for diagnosis of diabetes. Reference: Standards of Medical Care in Diabetes 2016, [place] Diabetes Association. Diabetes Care. 2016.39(Suppl 1). Performed By: #### 2 4320-2, 3083-04 ####[facility] LABIA [id number] [place] [address] [place] Potassium [Moles/Vol] 4.0 mmol/L Normal 3.7-5.1 [facility] Comment on above: Order Comment: Speci men Type: BLOOD SPECIMENOrdering Facility: [facility] Address: [address] [place] [address] Performed By: #### 2 4320-2, 3083-04 ####[facility] LABIA [id number] [place] [address] [place] Sodium [Moles/Vol] 141 mmol/L Normal 136-144 [facility] Comment on above: Order Comment: Speci men Type: BLOOD SPECIMENOrdering Facility: [facility] Address: [address] [place] [address] Performed By: #### 2 4320-, 3083-04 ####[facility] LABCLIA [id number] [place] [address] [place] Urea nitrogen [Mass/Vol] 18 mg/dL Normal 9-24 [facility] Comment on above: Order Comment: Speci men Type: BLOOD SPECIMENOrdering Facility: [facility] Address: [address] [place] [address] Performed By: #### 2 4321-2, 3084-1 ####[facility] LABCLIA [id number] [place] [address] [place] CBC W Auto Differential pane l (Bld)on 08-16-2023 Basophils (Bld) [#/Vol] 0.03 10*3/uL [facility] Basophils/100 WBC (Bld) 0.4 % [facility] Differential cell count method Nom (Bld) Auto [facility] Eosinophils (Bld) [#/Vol] 0.20 10*3/uL [facility] Eosinophils/100 WBC (Bld) 2.6 % [facility] Erythrocyte distribution width (RBC) [Ratio] 13.2 % 11.5 - 15.0 % [facility] Hematocrit (Bld) [Volume fraction] 50.2 % 39.0 - 51.0 % [facility] Hemoglobin (Bld) [Mass/Vol] 16.6 g/dL 13.0 - 17.0 g/dL [facility] Immature granulocytes (Bld) [#/Vol] [facility] Immature granulocytes/100 WBC (Bld) 0.3 % [facility] Lymphocytes (Bld) [#/Vol] 1.60 10*3/uL [facility] Lymphocytes/100 WBC (Bld) 21.1 % [facility] MCH (RBC) [Entitic mass] 29.1 pg 26.0 - 34.0 pg [facility] MCHC (RBC) [Mass/Vol] 33.1 g/dL 30.5 - 36.0 g/dL [facility] MCV (RBC) [Entitic vol] 87.9 fL 80.0 - 100.0 fL [facility] Monocytes (Bld) [#/Vol] 0.74 10*3/uL [facility] Monocytes/100 WBC (Bld) 9.7 % [facility] Neutrophils (Bld) [#/Vol] 5.01 10*3/uL [facility] Neutrophils/100 WBC (Bld) 65.9 % [facility] Nucleated RBC (Bld) [#/Vol] NINF [facility] Nucleated RBC/100 WBC (Bld) [Ratio] 0.0 % /100 WBC [facility] Platelet mean volume (Bld) [Entitic vol] 10.2 fL 9.0 - 12.7 fL [facility] Platelets (Bld) [#/Vol] 359 10*3/uL [facility] RBC (Bld) [#/Vol] 5.71 10*6/uL 4.20 - 6.0 0 m/uL [facility] WBC (Bld) [#/Vol] 7.60 10*3/uL [facility] Basophils (Bld) [#/Vol] 0.03 10*3/uL Normal <0.11 [facility] Comment on above: Order Comment: Speci men Type: BLOOD SPECIMENOrdering Facility: [facility] Address: [address] [place] [address] Performed By: #### 5 7021-8 ####[facility] LABIA [id number] [place] [address] [place] Basophils/100 WBC (Bld) 0.4 % Normal [facility] Comment on above: Order Comment: Speci men Type: BLOOD SPECIMENOrdering Facility: [facility] Address: [address] [place] [address] Performed By: #### 5 7021-8 ####[facility] LABCLIA [id number] [place] [address] [place] Differential cell count method Nom (Bld) Auto Normal [facility] Comment on above: Order Comment: Speci men Type: BLOOD SPECIMENOrdering Facility: [facility] Address: [address] [place] [address] Performed By: #### 5 7021-8 ####[facility] LABCLIA [id number] [place] [address] [place] Eosinophils (Bld) [#/Vol] 0.20 10*3/uL Normal <0.46 [facility] Comment on above: Order Comment: Speci men Type: BLOOD SPECIMENOrdering Facility: [facility] Address: [address] [place] [address] Performed By: #### 5 7021-8 ####[facility] LABCLIA [id number] [place] [address] [place] Eosinophils/100 WBC (Bld) 2.6 % Normal [facility] Comment on above: Order Comment: Speci men Type: BLOOD SPECIMENOrdering Facility: [facility] Address: [address] [place] [address] Performed By: #### 5 7021-8 ####[facility] LABCLIA [id number] [place] [address] [place] Erythrocyte distribution width (RBC) [Ratio] 13.2 % Normal 11.5-15.0 [facility] Comment on above: Order Comment: Speci men Type: BLOOD SPECIMENOrdering Facility: [facility] Address: [address] [place] [address] Performed By: #### 5 7021-8 ####[facility] LABCLIA [id number] [place] [address] [place] Hematocrit (Bld) [Volume fraction] 50.2 % Normal 39.0-51.0 [facility] Comment on above: Order Comment: Speci men Type: BLOOD SPECIMENOrdering Facility: [facility] Address: [address] [place] [address] Performed By: #### 5 7021-8 ####[facility] LABCLIA [id number] [place] [address] [place] Hemoglobin (Bld) [Mass/Vol] 16.6 g/dL Normal 13.0-17.0 [facility] Comment on above: Order Comment: Speci men Type: BLOOD SPECIMENOrdering Facility: [facility] Address: [address] [place] [address] Performed By: #### 5 7021-8 ####[facility] LABCLIA [id number] [place] [address] [place] Immature granulocytes (Bld) [#/Vol] 10*3/uL Normal <0.10 [facility] Comment on above: Order Comment: Speci men Type: BLOOD SPECIMENOrdering Facility: [facility] Address: [address] [place] [address] Performed By: #### 5 7021-8 ####[facility] LABCLIA [id number] [place] [address] [place] Immature granulocytes/100 WBC (Bld) 0.3 % Normal [facility] Comment on above: Order Comment: Speci men Type: BLOOD SPECIMENOrdering Facility: [facility] Address: [address] [place] [address] Performed By: #### 5 7021-8 ####[facility] LABCLIA [id number] [place] [address] [place] Lymphocytes (Bld) [#/Vol] 1.60 10*3/uL Normal 1.00-4.0 0 [facility] Comment on above: Order Comment: Speci men Type: BLOOD SPECIMENOrdering Facility: [facility] Address: [address] [place] [address] Performed By: #### 5 7021-8 ####[facility] LABCLIA [id number] [place] [address] [place] Lymphocytes/100 WBC (Bld) 21.1 % Normal [facility] Comment on above: Order Comment: Speci men Type: BLOOD SPECIMENOrdering Facility: [facility] Address: [address] [place] [address] Performed By: #### 5 7021-8 ####[facility] LABCLIA [id number] [place] [address] [place] MCH (RBC) [Entitic mass] 29.1 pg Normal 26.0-34.0 [facility] Comment on above: Order Comment: Speci men Type: BLOOD SPECIMENOrdering Facility: [facility] Address: [address] [place] [address] Performed By: #### 5 7021-8 ####[facility] LABIA [id number] [place] [address] [place] MCHC (RBC) [Mass/Vol] 33.1 g/dL Normal 30.5-36.0 [facility] Comment on above: Order Comment: Speci men Type: BLOOD SPECIMENOrdering Facility: [facility] Address: [address] [place] [address] Performed By: #### 5 7021-8 ####[facility] LABIA [id number] [place] [address] [place] MCV (RBC) [Entitic vol] 87.9 fL Normal 80.0-100.0 [facility] Comment on above: Order Comment: Speci men Type: BLOOD SPECIMENOrdering Facility: [facility] Address: [address] [place] [address] Performed By: #### 5 7021-8 ####[facility] LABIA [id number] [place] [address] [place] Monocytes (Bld) [#/Vol] 0.74 10*3/uL Normal <0.87 [facility] Comment on above: Order Comment: Speci men Type: BLOOD SPECIMENOrdering Facility: [facility] Address: [address] [place] [address] Performed By: #### 5 7021-8 ####[facility] LABCLIA [id number] [place] [address] [place] Monocytes/100 WBC (Bld) 9.7 % Normal C [facility] Comment on above: Order Comment: Speci men Type: BLOOD SPECIMENOrdering Facility: [facility] Address: [address] [place] [address] Performed By: #### 5 7021-8 ####[facility] LABCLIA [id number] [place] [address] [place] Neutrophils (Bld) [#/Vol] 5.01 10*3/uL Normal 1.45-7.5 0 [facility] Comment on above: Order Comment: Speci men Type: BLOOD SPECIMENOrdering Facility: [facility] Address: [address] [place] [address] Performed By: #### 5 7021-8 ####[facility] LABCLIA [id number] [place] [address] [place] Neutrophils/100 WBC (Bld) 65.9 % Normal [facility] Comment on above: Order Comment: Speci men Type: BLOOD SPECIMENOrdering Facility: [facility] Address: [address] [place] [address] Performed By: #### 5 7021-8 ####[facility] LABCLIA [id number] [place] [address] [place] Nucleated RBC (Bld) [#/Vol] 10*3/uL Normal <0.01 [facility] Comment on above: Order Comment: Speci men Type: BLOOD SPECIMENOrdering Facility: [facility] Address: [address] [place] [address] Performed By: #### 5 7021-8 ####[facility] LABCLIA [id number] [place] [address] [place] Nucleated RBC/100 WBC (Bld) [Ratio] 0.0 /100 WBC Normal [facility] Comment on above: Order Comment: Speci men Type: BLOOD SPECIMENOrdering Facility: [facility] Address: [address] [place] [address] Performed By: #### 5 7021-8 ####[facility] LABCLIA [id number] [address] [address] [place] Platelet mean volume (Bld) [Entitic vol] 10.2 fL Normal 9.0-12.7 [facility] Comment on above: Order Comment: Speci men Type: BLOOD SPECIMENOrdering Facility: [facility] Address: [address] [place] [address] Performed By: #### 5 7021-8 ####[facility] LABCLIA [id number] [place] [address] [place] Platelets (Bld) [#/Vol] 359 10*3/uL Normal 150-400 [facility] Comment on above: Order Comment: Speci men Type: BLOOD SPECIMENOrdering Facility: [facility] Address: [address] [place] [address] Performed By: #### 5 7021-8 ####[facility] LABIA [id number] [place] [address] [place] RBC (Bld) [#/Vol] 5.71 10*6/uL Normal 4.20-6.00 [facility] Comment on above: Order Comment: Speci men Type: BLOOD SPECIMENOrdering Facility: [facility] Address: [address] [place] [address] Performed By: #### 5 7021-8 ####[facility] LABIA [id number] [place] [address] [place] WBC (Bld) [#/Vol] 7.60 10*3/uL Normal 3.70-11.00 [facility] Comment on above: Order Comment: Speci men Type: BLOOD SPECIMENOrdering Facility: [facility] Address: [address] [place] [address] Performed By: #### 5 7021-8 ####[facility] LABIA [id number] [place] [address] [place] CNOVon 04-25-2024 CNOV Office Visit (FAMPWS) ---- CELSO SHINE ([id number]) 1980 M Date Time Provider Department 08/16/23 10:20 AM [facility] today, we recorded the following information about you: Pulse Respiration Blood pressure Weight 84/minute 18/minute 140/80 141.5 kg Sanchez Green MD 08/16/2023 10:46 AM Signed Chief Complaint Patient presents with: Ankle Pain: Left ankle Edema: Feet, lissette HPI Celso Shine is a 43 year old male who presents here today for Above Complaints.. Pt here for lissette foot swelling and left ankle pain. Pt stated he has left ankle pain that he woke up with 2 weeks ago, was swollen, red and hot to touch, unable to bare weight, using a cane. No injury to the ankle or feet. Father has gout. Pt denies every having any gout issues. He has been taking 1300 mg Tylenol TID, compression and ice, has used a walking boot but that can cause more pain. Elevated foot a night. Been having issues with lissette foot swelling x 2 weeks as well. Unable to keep feet elevated during the day while working but elevates at night and swelling will improve by morning. Starts to swell up again through the day. Vitamin D deficiency: Taking Vitamin D3 5,000 international unit(s) daily. Depression screening for HM reviewed, pt denies feeling depressed, hopeless, anxious, etc. Past medical history, appointments, medications, allergies reviewed. Previous Medical History PAST MEDICAL HISTORY Diagnosis Date Abdominal pain, other specified site Allergic rhinitis due to other allergen Unspecified essential hypertension Previous Surgical History PAST SURGICAL HISTORY Procedure Laterality Date COLONOSCOPY FLX DX W/COLLJ SPEC WHEN PFRMD 01/11/2012 Colonoscopy PALATE/UVULA SURGERY UNLISTED 2000 Somnoplasty PAST SURGICAL HISTORY OF 2000 wisdom teeth RHINP PRIM LATANDALAR CRTLGSAND/ELVTN NASAL TI 2000 Rhinoplasty Family History FAMILY HISTORY Problem Relation Age of Onset Heart Father First MO age 45, Coronary Artery Disease Father 45 Lipids Father Stroke Maternal Grandmother Coronary Artery Disease Maternal Grandfather Colon Cancer Maternal Grandfather Coronary Artery Disease Paternal Grandfather MO x 4, not sure age of first MO Patient Allergies ALLERGIES Allergen Reactions Codeine purple spots apprea on skin Ibuprofen Swelling Current Medications Current Outpatient Medications on File Prior to Visit Medication Sig BIPAP Initiate BiPAP @ 8 and 12 cm of water with humidification. Mask (per patient preference) optional chin strap (if indicated) , filters, tubing, humidifier and lifetime supplies. benzonatate (TESSALON PERLES) 100 mg capsule Take 1 capsule by mouth three times a day as needed for cough. loratadine (CLARITIN) 10 mg tablet Take 10 mg by mouth once daily. fluticasone (FLONASE) 50 mcg/actuation nasal spray Use 1 [place] in each nostril twice daily at 6AM and 9PM. Rinse mouth after use. No current facility-administer ed medications on file prior to visit. Social History Social History Tobacco Use Smoking status: Never Smokeless tobacco: Never Vaping Use Vaping Use: Never used Substance Use Topics Alcohol use: Yes Comment: occ Drug use: No EXAM: BP 140/80 Pulse 84 Resp 18 Wt (!) 141.5 kg (312 lb) BMI 41.16 kg/m? General Appearance: Well appearing, alert, in no acute distress, well-hydrated, well nourished. and Obese. Extremities: left ankle; pain on palpation diffusely, pain with rotation back and forth, mild joint swelling, warm. NO MTP joint tenderness. Right ankle normal. Health Maintenance List BP Controlled (<130/80) Never done Behavioral Health Screening Never done Annual PCP Team Chronic Disease Visit due on 05/04/2024 DTaP,Tdap,Td Vaccine(3 - Td or Tdap) due on 03/07/2027 Lipid Screening due on 02/23/2028 Influenza Vaccine Completed Hepatitis C Screening Completed HIV Screening Completed Covid-19 Vaccine Completed HPV Vaccine Aged Out Data reviewed None ASSESSMENT/PLAN: 1. Acute left ankle pain - ICD9: 719.47, ICD10: M25.572 Concern for gout XR left ankle Check Uric Acid, BMP, CBC level today Medrol Dose pack sent to pharmacy; allergy to ibuprofen 2. Vitamin D deficiency - ICD9: 268.9, ICD10: E55.9 Check labs Follow up as scheduled or if not improving. Notify of Xray and lab results I agree with the Chief Complaint, ROS, and Past Histories independently gathered by the clinical customer support representative and the remaining scribed note accurately describes my personal service to the patient. Medical Decision Making: Problems: Moderate: New problem with uncertain prognosis Data: Unique test(s) ordered: 3+ Risk: Moderate: Drug management Medical Decision Making Level: 4 - Moderate Sanchez Green MD The documentation for this note was completed by Kendy Moulton MA acting (more content not included)... Normal [facility] No Panel Informationon 08-15 Interpretation and review of laboratory results Normal [facility] URIC ACIDon 08-16-2023 Urate [Mass/Vol] 8.1 mg/dL 4.0 - 8.1 mg/dL [facility] Urate SerPl-mCncon Urate [Mass/Vol] 8.1 mg/dL Normal 4.0-8.1 [facility] Comment on above: Order Comment: Speci men Type: BLOOD SPECIMENOrdering Facility: [facility] Address: [address] [place] [address] Performed By: #### 2 4321-2, 3084-1 ####[facility] LABCLIA [id number] [place] [address] [place] VITAMIN D 25 HYDROXYon 08-15 25-hydroxyvitamin D3 [Mass/Vol] 31.9 ng/mL 31.0 - 80.0 ng/mL [facility] Comment on above: Classification of 25 [place] Vitamin D status: Deficiency/Insufficiency: < or = 30 ng/ml. Sufficiency/Optimal Levels: 31-80 ng/mL Toxicity: > 100 ng/mL. Test performed by chemiluminescent immunoassay. XR ANKLE 3V AP/LAT/OBL LTon 08-16-2023 XR ANKLE 3V AP/LAT/OBL LT * * *Final Rep ort* * * DATE OF EXAM: Aug 16 2023 11:19AM WOX 5298 - XR ANKLE 3V AP/LAT/OBL LT / PROCEDURE REASON: Acute left ankle pain * * * * Physician Interpretation * * * * EXAM TITLE: XR ANKLE 3V AP/LAT/OBL LT EXAM DATE/TIME: 08/16/2023 11:19 AM COMPARISON: None. CLINICAL INDICATION/HISTORY: Acute ankle pain. TECHNIQUE: AP, mortise and lateral views of the left ankle are presented. FINDINGS: No acute fractures or subluxations are noted. There is a tiny cystic focus in the distal fibula. The mortise spaces are maintained. There is no ankle joint effusion. The mineralization of the bones is normal. There is no significant soft tissue swelling. IMPRESSION: No acute radiographic abnormalities seen in the left ankle. Poultry Sexer: PSCB Transcribe Date/Time: Aug 22 2023 5:03P Dictated by : HYACINTH MAYORGA MD This examination was interpreted and the report reviewed and electronically signed by: HYACINTH MAYORGA MD on Aug 22 2023 5:05PM EST [id number] Normal [facility] XR Ankle - left AP and Later al and obliqueon 08-16-2023 Radiology Study observation (narrative) [facility] CNOVon 05-04-2023 CNOV Office Visit (FAMPWS) ---- CELSO SHINE ([id number]) 1980 M Date Time Provider Department 05/04/23 2:40 PM SANCHEZ GREEN FAMPWS During your visit today, we recorded the following information about you: Pulse Respiration Blood pressure Weight 68/minute 20/minute 138/88 142.7 kg Sanchez Green MD 05/04/2023 2:58 PM Signed Chief Complaint Patient presents with: URI: cough HPI Celso Shine is a 42 year old male who presents here today for cold sx. Pt stated he has a cough with phlegm, drainage in the back of the throat, nasal congestion, some wheezing and SOB, slight headache that started on 04/25/23. Had sore throat when this first started that resolved within 2 days. No fevers, no ear, no sinus pressure. Had one bout of diarrhea 4 days ago but nothing before or after. He was around someone who had COVID on . Tested 4 times in the last 9 days, all negative. Has been using Dayquil and Nyquil which are not helping much. Cough is worse when laying down. Has not had any loss of smell or taste, no fatigue. He does not think he is getting any worse but is not getting any better. Checking O2 levels at home which have been ok. He had COVID in the past back in 2020, he was not ill with any sx, but took him 11 days post exposure to finally test positive for COVID. Past medical history, appointments, medications, allergies reviewed. Previous Medical History PAST MEDICAL HISTORY Diagnosis Date Abdominal pain, other specified site Allergic rhinitis due to other allergen Unspecified essential hypertension Previous Surgical History PAST SURGICAL HISTORY Procedure Laterality Date COLONOSCOPY FLX DX W/COLLJ SPEC WHEN PFRMD 01/11/2012 Colonoscopy PALATE/UVULA SURGERY UNLISTED 2000 Somnoplasty PAST SURGICAL HISTORY OF 2000 wisdom teeth RHINP PRIM LATANDALAR CRTLGSAND/ELVTN NASAL TI 2001 Rhinoplasty Family History FAMILY HISTORY Problem Relation Age of Onset Heart Father First MO age 45, Coronary Artery Disease Father 45 Lipids Father Stroke Maternal Grandmother Coronary Artery Disease Maternal Grandfather Colon Cancer Maternal Grandfather Coronary Artery Disease Paternal Grandfather MO x 4, not sure age of first MO Patient Allergies ALLERGIES Allergen Reactions Codeine purple spots apprea on skin Ibuprofen Swelling Current Medications Current Outpatient Medications on File Prior to Visit Medication Sig BIPAP Initiate BiPAP @ 7 and 11 cm of water with humidification. Mask (per patient preference) optional chin strap (if indicated) , filters, tubing, humidifier and lifetime supplies. loratadine (CLARITIN) 10 mg tablet Take 10 mg by mouth once daily. fluticasone (FLONASE) 50 mcg/actuation nasal spray Use 1 [place] in each nostril twice daily at 6AM and 9PM. Rinse mouth after use. No current facility-administer ed medications on file prior to visit. Social History Social History Tobacco Use Smoking status: Never Smokeless tobacco: Never Vaping Use Vaping Use: Never used Substance Use Topics Alcohol use: Yes Comment: occ Drug use: No EXAM: BP 138/88 Pulse 68 Resp 20 Wt (!) 142.7 kg (314 lb 9.6 oz) SpO2 99% BMI 41.51 kg/m? General Appearance: Well appearing, alert, in no acute distress, well-hydrated, well nourished. and Morbidly obese. Lungs: Lungs clear to auscultation. No wheezing, rhonchi, rales.. Heart: RRR without murmur, gallop, or rubs. No ectopy. Health Maintenance List Depression Assessment due on 04/23/2023 Annual PCP Team Chronic Disease Visit due on 02/23/2024 BP Controlled (<130/80) due on 02/23/2024 DTaP,Tdap,Td Vaccine(3 - Td or Tdap) due on 03/07/2027 Lipid Screening due on 02/23/2028 Influenza Vaccine Completed Hepatitis C Screening Completed HIV Screening Completed Covid-19 Vaccine Completed HPV Vaccine Aged Out Data reviewed None ASSESSMENT/PLAN: 1. Bronchitis - ICD9: 490, ICD10: J40 Stef muhammad #30 Start Doxycycline 100 mg 1 pill BID x 10 days Follow up as needed or if sx do not improve. I agree with the Chief Complaint, ROS, and Past Histories independently gathered by the clinical customer support representative and the remaining scribed note accurately describes my personal service to the patient. Medical Decision Making: Problems: Low: Acute, uncomplicated illness or injury Risk: Moderate: Drug management Medical Decision Making Level: 3 - Low Sanchez Green MD The documentation for this note was completed by Kendy Moulton Ma acting as scribe for Sanchez Green MD. May 04, 2023 2:37 PM. Kendy Moulton Ma Allergies As of Date: 05/04/2023 Noted Allergy Reaction CODEINE 01/21/2005 Comments: purple spots apprea on skin IBUPROFEN 03/27/2015 7 - Swelling Date Reviewed: 05/04/2023 Reviewed by: Kendy Moulton Ma - Fully Assessed Reason for Visit: URI [115] Cmt: (more content not included)... Normal [facility] No Panel Informationon 05-22 [facility] metabolic 2000 panelon 02-07-2022 Albumin [Mass/Vol] 4.4 g/dL 3.9 - 4.9 g/dL [facility] ALP [Catalytic activity/Vol] 81 U/L 38 - 113 U/L [facility] ALT [Catalytic activity/Vol] 26 U/L 10 - 54 U/L [facility] Anion gap [Moles/Vol] 11 mmol/L 9 - 18 mmol/L [facility] AST [Catalytic activity/Vol] 23 U/L 14 - 40 U/L [facility] Bilirubin [Mass/Vol] 0.4 mg/dL 0.2 - 1 .3 mg/dL [facility] Calcium [Mass/Vol] 9.5 mg/dL 8.5 - 10. 2 mg/dL [facility] Chloride [Moles/Vol] 105 mmol/L 97 - 10 5 mmol/L [facility] CO2 [Moles/Vol] 26 mmol/L 22 - 30 mmol/L [facility] Creatinine [Mass/Vol] 0.92 mg/dL 0.73 - 1.22 mg/dL [facility] Estimated Glomerular Filtration Rate 107 mL/min/1.73m >=60 mL/min/1.73m [facility] Glucose [Mass/Vol] 83 mg/dL 74 - 99 mg/dL [facility] Potassium [Moles/Vol] 4.6 mmol/L 3.7 - 5.1 mmol/L [facility] Protein [Mass/Vol] 7.8 g/dL 6.3 - 8.0 g/dL [facility] Sodium [Moles/Vol] 142 mmol/L 136 - 144 mmol/L [facility] Urea nitrogen [Mass/Vol] 17 mg/dL 9 - 24 mg/d L [facility] Lipid 1996 panelon 2 Cholesterol [Mass/Vol] 179 mg/dL <200 mg/dL [facility] Cholesterol in HDL [Mass/Vol] 42 mg/dL >39 mg/dL [facility] Cholesterol in LDL [Mass/Vol] 120 mg/dL High <100 mg/dL [facility] Cholesterol in LDL/Cholesterol in HDL [Mass ratio] 2.86 {ratio} High <2.54 [facility] Cholesterol in VLDL [Mass/Vol] 17 mg/dL <30 mg/dL [facility] Cholesterol non HDL [Mass/Vol] 137 mg/dL High <130 mg/dL [facility] Cholesterol.total/Cholest maci in HDL [Mass ratio] 4.26 {ratio} <5.10 [facility] Fasting Time 12 hrs [facility] Triglyceride [Mass/Vol] 83 mg/dL <150 mg/dL [facility] VITAMIN D 25 HYDROXYon 02-07 25-hydroxyvitamin D3 [Mass/Vol] 22.8 ng/mL Low 31.0 - 80.0 ng/mL [facility] XR Wrist - right 4 Viewson 0 01-11-2021 IMPRESSION: No Acute Fracture. Poultry Sexer: PSCStephanie Transcribe Date/Time: Jan 11 2021 6:49P Dictated by : JOSE JACOBO MD This examination was interpreted and the report reviewed and electronically signed by: JOSE JACOBO MD on Jan 11 2021 6:51PM [facility] DIVISION OF RADIOLOGY * * *Final Report* * * DATE OF EXAM: Jan 11 2021 6:47PM WOX 5273 - XR WRIST 4V PA/LAT/OBL/SCAPH RT / PROCEDURE REASON: Right wrist pain * * * * Physician Interpretation * * * * EXAMINATION: XR WRIST 4V PA/LAT/OBL/SCAPH RT HISTORY: Carpal of weeks ago doing a plank on a exercise ball and right hand fell off and hit the floor pain ulnar side of right wrist. Right wrist pain. TECHNIQUE: XR WRIST 4V PA/LAT/OBL/SCAPH RT Laterality: RIGHT Number of different views (projections): 4 M: XB_1 COMPARISON: There are no prior studies for comparison. RESULT: 4 views of the right wrist show no acute osseous, articular or soft tissue abnormality. The radiocarpal and intercarpal articulations are intact. DIVISION OF RADIOLOGY Provider, [facility] - 01/11/2021 * * *Final Report* * * DATE OF EXAM: Jan 11 2021 6:47PM WOX 5273 - XR WRIST 4V PA/LAT/OBL/SCAPH RT / PROCEDURE REASON: Right wrist pain * * * * Physician Interpretation * * * * EXAMINATION: XR WRIST 4V PA/LAT/OBL/SCAPH RT HISTORY: Carpal of weeks ago doing a plank on a exercise ball and right hand fell off and hit the floor pain ulnar side of right wrist. Right wrist pain. TECHNIQUE: XR WRIST 4V PA/LAT/OBL/SCAPH RT Laterality: RIGHT Number of different views (projections): 4 M: XB_1 COMPARISON: There are no prior studies for comparison. RESULT: 4 views of the right wrist show no acute osseous, articular or soft tissue abnormality. The radiocarpal and intercarpal articulations are intact. IMPRESSION IMPRESSION: No Acute Fracture. Poultry Sexer: MARIBEL Transcribe Date/Time: Jan 11 2021 6:49P Dictated by : JOSE JACOBO MD This examination was interpreted and the report reviewed and electronically signed by: JOSE JACOBO MD on Jan 11 2021 6:51PM [facility] Radiology Study observation (narrative) [facility] XR Wrist - right 4 ViewsOrde red By: Cc Provider on 01-11-2021 [facility] XR Foot - right AP and Later al and obliqueon 03-03-2020 IMPRESSION: NO ACUTE OSSEOUS ABNORMALITY OTHER FINDINGS DESCRIBED Poultry Sexer: MARIBEL Transcribe Date/Time: Mar 03 2020 9:58A Dictated by : THU DRISCOLL MD This examination was interpreted and the report reviewed and electronically signed by: THU DRISCOLL MD on Mar 03 2020 9:58AM [facility] DIVISION OF RADIOLOGY * * *Final Report* * * DATE OF EXAM: Mar 02 2020 11:27AM WOX 5337 - XR FOOT 3V AP/LAT/OBL RT / PROCEDURE REASON: multiple diagnoses * * * * Physician Interpretation * * * * HISTORY: Swelling of right foot Foot pain, right . Dorsal right forefoot swelling and pain x 1 month without injury TECHNIQUE: XR FOOT 3V AP/LAT/OBL RT Laterality: RIGHT Views: 3 COMPARISON: None RESULT: Bones are intact. Joint spaces are preserved. Small posterior calcaneal spur. No other significant abnormality. ------- DIVISION OF RADIOLOGY Provider, [facility] - 03/03/2020 * * *Final Report* * * DATE OF EXAM: Mar 02 2020 11:27AM WOX 5337 - XR FOOT 3V AP/LAT/OBL RT / PROCEDURE REASON: multiple diagnoses * * * * Physician Interpretation * * * * HISTORY: Swelling of right foot Foot pain, right . Dorsal right forefoot swelling and pain x 1 month without injury TECHNIQUE: XR FOOT 3V AP/LAT/OBL RT Laterality: RIGHT Views: 3 COMPARISON: None RESULT: Bones are intact. Joint spaces are preserved. Small posterior calcaneal spur. No other significant abnormality. ------- IMPRESSION IMPRESSION: NO ACUTE OSSEOUS ABNORMALITY OTHER FINDINGS DESCRIBED Poultry Sexer: MARIBEL Transcribe Date/Time: Mar 03 2020 9:58A Dictated by : THU DRISCOLL MD This examination was interpreted and the report reviewed and electronically signed by: THU DRISCOLL MD on Mar 03 2020 9:58AM EST [facility] XR Foot - right AP and Later al and obliqueOrdered By: Ccf Provider on 03-03-2020 [facility] XR Foot - right AP and Later al and obliqueon 03-02-2020 Radiology Study observation (narrative) [facility] Vital Signs Date Time Vital Sign Value Performing Clinician Lou telles 03-28-2024 06:47-0500 Body mass index (BMI) [Ratio] 41.21 kg/m2 Brandon Kinsey APRN.CNP Work Phone: [facility] 03-28-2024 06:47-0500 Body weight 145.6 kg Brandon Kinsey APRN.CNP Work Phone: [facility] 03-28-2024 06:47-0500 Diastolic blood pressure 80 mm[Hg] Brandon Kinsey APRN.CNP Work Phone: [facility] 03-28-2024 06:47-0500 Heart rate 73 /min Brandon Kinsey APRN.CNP Work Phone: [facility] 03-28-2024 06:47-0500 Respiratory rate 16 /min Brandon Kinsey APRN.CNP Work Phone: [facility] 03-28-2024 06:47-0500 Systolic blood pressure 130 mm[Hg] Brandon Kinsey APRN.CNP Work Phone: [facility] 02-25-2024 13:14-0500 Diastolic blood pressure 86 mm[Hg] Sanchez Green MD Work Phone: [facility] 02-25-2024 13:14-0500 Systolic blood pressure 132 mm[Hg] Sanchez Green MD Work Phone: [facility] 02-25-2024 13:12-0500 Body height 188 cm Sanchez Green MD Work Phone: [facility] 02-25-2024 13:12-0500 Body mass index (BMI) [Ratio] 40.82 kg/m2 Sanchez Green MD Work Phone: [facility] 02-25-2024 13:12-0500 Body weight 144.2 kg Sanchez Green MD Work Phone: [facility] 02-25-2024 13:12-0500 Heart rate 64 /min Sanchez Green MD Work Phone: [facility] 02-25-2024 13:12-0500 Respiratory rate 16 /min Sanchez Green MD Work Phone: [facility] 12-25-2023 09:38-0400 Body mass index (BMI) [Ratio] 40.92 kg/m2 Sanchez Green MD Work Phone: [facility] 12-25-2023 09:38-0400 Body weight 140.7 kg Sanchez Green MD Work Phone: [facility] [facility] 12-25-2023 09:38-0400 Diastolic blood pressure 84 mm[Hg] Sanchez Green MD Work Phone: [facility] 12-25-2023 09:38-0400 Heart rate 68 /min Sanchez Green MD Work Phone: [facility] 12-25-2023 09:38-0400 Respiratory rate 18 /min Sanchez Green MD Work Phone: [facility] 12-25-2023 09:38-0400 Systolic blood pressure 118 mm[Hg] Sanchez Green MD Work Phone: [facility] 08-16-2023 10:25-0400 Body mass index (BMI) [Ratio] 41.16 kg/m2 Sanchez Green MD Work Phone: [facility] 08-16-2023 10:25-0400 Body weight 141.52 kg Sanchez Green MD Work Phone: [facility] 08-16-2023 10:25-0400 Diastolic blood pressure 80 mm[Hg] Sanchez Green MD Work Phone: [facility] 08-16-2023 10:25-0400 Heart rate 84 /min Sanchez Green MD Work Phone: [facility] 08-16-2023 10:25-0400 Respiratory rate 18 /min Sanchez Green MD Work Phone: [facility] 08-16-2023 10:25-0400 Systolic blood pressure 140 mm[Hg] Sanchez Green MD Work Phone: [facility] 02-07-2022 08:07-0400 Body height 185.4 cm Sanchez Green MD Work Phone: [facility] 02-07-2022 08:07-0400 Body weight 132.54 kg Sanchez Green MD Work Phone: [facility] 02-07-2022 08:07-0400 Diastolic blood pressure 78 mm[Hg] Sanchez Green MD Work Phone: [facility] 02-07-2022 08:07-0400 Heart rate 74 /min Sanchez Green MD Work Phone: [facility] 02-07-2022 08:07-0400 Respiratory rate 18 /min Sanchez Green MD Work Phone: [facility] 02-07-2022 08:07-0400 Systolic blood pressure 122 mm[Hg] Sanchez Green MD Work Phone: [facility] Encounters Encounter Date Encounter Type Care Provider Facility Start: 10-01-2024 ambulatory Duncan Carter Facilit y:[facility] Start: 09-29-2024 ambulatory Duncan Carter Facilit y:[facility] Start: 09-25-2024 ambulatory Duncan Carter Facilit y:[facility] Start: 09-19-2024 End: 09-19-[address] Sanchez Green MD Work Phone: [facility] Work Phone: Start: 09-19-2024 End: 09-19-[address] Duncan Carter MD -Laboratory [facility] Start: 09-19-2024 End: 09-19-2024 ambulatory Duncan Carter Facility:[facility] Start: 03-28-2024 End: 03-28-2024 Office outpatient visit 25 minutes Brandon Kinsey APRN.COMPETITIVE SHOPPER Work Phone: [facility] Comment on above: Essential hypertensi on, benign (Primary Dx); Vitamin D deficiency; Hyperlipidemia, mixed; Class 3 severe obesity with body mass index (BMI) of 40.0 to 44.9 in adult, unspecified obesity type, unspecified whether serious comorbidity present (HCC) Start: 02-25-2024 End: 02-25-2024 ambulatory SANCHEZ GREEN Facility:[facility] Start: 02-25-2024 End: 02-25-2024 Patient encounter procedure Sanchez Green MD Work Phone: [facility] Comment on above: Wellness examination (Primary Dx); Essential hypertension, benign; Allergic rhinitis, unspecified seasonality, unspecified trigger; Obesity, unspecified class, unspecified obesity type, unspecified whether serious comorbidity present; BARRIE (obstructive sleep apnea); Foot and ankle pain; Encounter for immunization; Vitamin D deficiency Start: 02-25-2024 End: 02-25-2024 Patient encounter status Sanchez Green MD Work Phone: [facility] Start: 02-19-2024 End: 02-19-2024 ambulatory Carl Masterson PT Work Phone: [facility] Comment on above: Foot and ankle pain (Primary Dx) Start: 01-29-2024 End: 01-29-2024 ambulatory Carl Masterson PT Work Phone: [facility] Comment on above: Foot and ankle pain (Primary Dx) Start: 01-15-2024 End: 01-15-2024 ambulatory SHAN MAI Facility:[facility] Start: 01-15-2024 End: 01-15-2024 Patient encounter procedure Shan Mai Work Phone: Podiatry Comment on above: Plantar fasciitis (P rimary Dx); Foot and ankle pain Start: 01-15-2024 End: 01-15-2024 ambulatory Carl Masterson PT Work Phone: [facility] Comment on above: Foot and ankle pain Start: 12-25-2023 End: 12-25-2023 Subsequent hospital visit by physician L[facility] Work Phone: Radiology Comment on above: Foot and ankle pain [M79.673, M25.579] Start: 12-25-2023 End: 12-25-2023 ambulatory SANCHEZ GREEN Facility:[facility] Start: 12-25-2023 End: 12-25-2023 Patient encounter procedure Sanchez Green MD Work Phone: [facility] Comment on above: Foot and ankle pain (Primary Dx) Start: 08-16-2023 End: 08-16-2023 Subsequent hospital visit by physician Lacho [facility] Work Phone: Radiology Comment on above: Acute left ankle will n [M25.572] Start: 08-16-2023 End: 08-16-2023 ambulatory SANCHEZ GREEN Facility:[facility] Start: 08-16-2023 End: 08-16-2023 Patient encounter procedure Sanchez Green MD Work Phone: [facility] Comment on above: Acute left ankle will n (Primary Dx); Vitamin D deficiency Start: 05-04-2023 End: 05-04-2023 ambulatory SANCHEZ GREEN Facility:[facility] Start: 07-12-2022 Orders Only Ryan Caban MD Work Phone: Orthopaedics Comment on above: Left knee pain, unsp ecified chronicity (Primary Dx) Start: 05-22-2022 End: 05-22-2022 Subsequent hospital visit by physician [facility] Work Phone: Nuclear Medicine Comment on above: FHx: heart disease [ Z82.49] Start: 05-16-2022 ambulatory Nurse Card Adm in [facility] Work Phone: Cardiology Comment on above: Stress Test Instruct ions Start: 05-16-2022 E-mail encounter fro m caregiver Nurse Card Admin [facility] Work Phone: [facility] Start: 03-21-2022 ambulatory Nurse Card Adm in [facility] Work Phone: Cardiology Comment on above: Stress Test Instruct ions Start: 03-21-2022 E-mail encounter fro m caregiver Nurse Card Admin [facility] Start: 02-07-2022 End: 02-07-2022 Patient encounter procedure Sanchez Green MD Work Phone: [facility] Comment on above: Wellness examination (Primary Dx); Need for influenza vaccination; Need for COVID-19 vaccine; Elevated blood pressure reading without diagnosis of hypertension; BARRIE (obstructive sleep apnea); Obesity, unspecified classification, unspecified obesity type, unspecified whether serious comorbidity present; Acute pain of right shoulder; Acute pain of left knee; Rapid heart rate; FHx: heart disease; Chest pain, unspecified type; Vitamin D deficiency Start: 02-07-2022 End: 02-07-2022 Patient encounter status Sanchez Green MD Work Phone: [facility] Start: 01-11-2021 End: 01-11-2021 Subsequent hospital visit by physician [facility] Work Phone: Radiology Comment on above: Right wrist pain [M2 5.531] Start: 03-02-2020 End: 03-02-2020 Subsequent hospital visit by physician [facility] Work Phone: Radiology Comment on above: Swelling of right fo ot [M79.89] Procedures Date Procedure Procedure Detail Performing Clinician Start: 09-19-2024 Urnls dip stick/tabl et reagent auto microscopy Dr. Sanchez Green MD Work Phone: Start: 09-19-2024 Hepatitis C antibody measurement Dr. Sanchez Green MD Work Phone: Comment on above: Reactive: Presumptiv e evidence of antibodies to HCV. Follow CDC recommendations for supplemental testing.Non-Reactive: Antibodies to HCV were not detected; does not exclude the possibility of exposure to HCVReactive Results are presumptive evidence of antibodies to HCV. Follow CDC recommendations for supplemental testing.Order confirmation testing: HCV Quant by PCR testing - HCVPCR [id number] Non Reactive: < 0.8 Equivocal: >/= 0.8 to < 1.0 Reactive: >/= 1.0The CDC requires that a reactive/equivocal HCV antibody result be sent out for confirmation. HCV Quant by PCR testing. Start: 09-19-2024 Vitamin D, 25-hydrox y measurement Dr. Sanchez Green MD Work Phone: Comment on above: Vitamin D StatusDefi ciency: <20 ng/mL (50nmol/L)Insufficiency: 20-30 ng/mL (50-75 nmol/L)Sufficiency: 30-100 ng/mL (75-250 nmol/L)Toxicity: >100 ng/mL (>250 nmol/L) Start: 03-26-2024 Lipid 1995 panel - S jesse or Plasma Brandon Kinsey CHEF UNDER.COMPETITIVE SHOPPER Work Phone: Start: 02-25-2024 [employer] COVI D-19 VACCINE AGE 12+ YR (COMIRNATY) Sanchez Green MD Work Phone: Start: 12-25-2023 Radex ankle complete minimum 3 views Sanchez Green MD Work Phone: Start: 08-16-2023 Radex ankle complete minimum 3 views Sanchez Green MD Work Phone: Start: 08-16-2023 Adult depression scr eening assessment Sanchez Green MD Work Phone: Start: 02-22-2023 Lipid 1996 panel - S jesse or Plasma [facility] Work Phone: Start: 05-22-2022 Myocardial spect mul tiple studies Sanchez Green MD Work Phone: Start: 02-07-2022 INFLUENZA VACCINE QUADRIVALENT 6 MO - 64 YRS IM Sanchez Green MD Work Phone: Start: 02-07-2022 [employer]ER[employer] COVI D-19 BIVALENT BOOSTER VACCINE, AGE 12+ YR Sanchez Green MD Work Phone: Start: 01-11-2021 Radex wrist complete minimum 3 views Paola Gale CHEF UNDER.COMPETITIVE SHOPPER Work Phone: Start: 03-02-2020 Radex foot complete minimum 3 views Sanchez Green MD Work Phone: Plan of Treatment Date Care Activity Detail Author Start: 03-26-2029 Lipid panel Lipid Screening [facility] Start: 02-23-2028 Lipid 1996 panel - S jesse or Plasma Lipid Screening [facility] Start: 02-23-2028 Lipid panel Lipid Screening [facility] Start: 03-07-2027 Urine microalbumin profile [facility] Start: 02-07-2027 LIPID SCREEN LIPID SCREEN [facility] Start: 03-28-2025 Annual PCP 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 Helper juli Disease Visit Annual PCP Team Chronic Disease Visit [facility] Start: 02-24-2025 Annual PCP 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 Helper juli Disease Visit Annual PCP Team Chronic Disease Visit [facility] Start: 12-24-2024 Annual PCP 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 Helper juli Disease Visit Annual PCP Team Chronic Disease Visit [facility] Start: 09-26-2024 End: 12-26-2024 25-hydroxyvitamin D3 [Mass/volume] in Serum or Plasma VITAMIN D 25 HYDROXY Lab Routine Vitamin D deficiency Expected: 09/26/2024 (Approximate), Expires: 12/26/2024 [facility] Work Phone: Comment on above: Expected: 09/26/2024 (Approximate), Expires: 12/26/2024 Start: 09-26-2024 End: 12-26-2024 Comprehensive metabolic 2000 panel - Serum or Plasma COMPREHENSIVE METABOLIC PANEL Lab Routine Essential hypertension, benign Expected: 09/26/2024 (Approximate), Expires: 12/26/2024 [facility] Comment on above: Expected: 09/26/2024 (Approximate), Expires: 12/26/2024 Start: 09-26-2024 End: 12-26-2024 Lipid 1995 panel - Serum or Plasma LIPID PANEL BASIC Lab Routine Hyperlipidemia, mixed Expected: 09/26/2024 (Approximate), Expires: 12/26/2024 [facility] Comment on above: Expected: 09/26/2024 (Approximate), Expires: 12/26/2024 Start: 09-26-2024 End: 09-26-2024 Patient encounter procedure 09/26/2024 7:00 AM EDT Office Visit [facility] [address], [place] [id number] Brandon Kinsey APRN.COMPETITIVE SHOPPER [address] [facility], [place] [id number] 6 month follow up [facility] Comment on above: 6 month follow up Start: 08-15-2024 Annual PCP 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 Helper juli Disease Visit Annual PCP Team Chronic Disease Visit [facility] Start: 08-15-2024 Anxiety Screening Anxiety Screening [facility] Start: 08-15-2024 Depression Screening Depression Scre ening [facility] Start: 03-26-2024 End: 06-25-2024 25-hydroxyvitamin D3 [Mass/volume] in Serum or Plasma VITAMIN D 25 HYDROXY Lab Routine Vitamin D deficiency Expected: 03/26/2024 (Approximate), Expires: 06/25/2024 [facility] Comment on above: Expected: 03/26/2024 (Approximate), Expires: 06/25/2024 Start: 03-26-2024 End: 06-25-2024 Comprehensive metabolic 2000 panel - Serum or Plasma COMPREHENSIVE METABOLIC PANEL Lab Routine Essential hypertension, benign Expected: 03/26/2024 (Approximate), Expires: 06/25/2024 [facility] Work Phone: Comment on above: Expected: 03/26/2024 (Approximate), Expires: 06/25/2024 Start: 03-26-2024 End: 06-25-2024 Lipid 1996 panel - Serum or Plasma LIPID PANEL BASIC Lab Routine Essential hypertension, benign Obesity, unspecified class, unspecified obesity type, unspecified whether serious comorbidity present Expected: 03/26/2024 (Approximate), Expires: 06/25/2024 [facility] Comment on above: Expected: 03/26/2024 (Approximate), Expires: 06/25/2024 Start: 03-25-2024 End: 03-25-2024 Patient encounter procedure 03/25/2024 2:00 PM EST Office Visit [facility] [address] [place], [place] [address] Brandon Kinsey APRN.COMPETITIVE SHOPPER [address] [place], [place] [id number] 1 mo BP check [facility] Comment on above: 1 mo BP check Start: 02-25-2024 End: 02-25-2024 Patient encounter procedure 02/25/2024 1:20 PM EST Office Visit [facility] [address], [place] [phone] Sanchez Green MD [address] [place] [address] Yearly physical [facility] Comment on above: Yearly physical Start: 02-23-2024 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 PCP 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 juli Disease Visit Annual PCP Team Chronic Disease Visit [facility] Start: 02-23-2024 BP Controlled (<130/80) BP Controlle d (<130/80) [facility] Start: 02-19-2024 End: 02-19-2024 ambulatory 02/19/2024 7:45 AM EDT OT/PT/Speech Visit [facility] [address] [place] [address] Carl Masterson, PT [address] [facility] [id number] M79.673,M25.579 (ICD-10-CM) - Foot and ankle pain [facility] Comment on above: M79.673,M25.579 (ICD -10-CM) - Foot and ankle pain Start: 01-29-2024 End: 01-29-2024 ambulatory 01/29/2024 8:30 AM EDT OT/PT/Speech Visit [facility] [address] [place] [address] Carl Masterson, PT [address] [facility] [place] [id number] : M79.673,M25.579 (ICD-10-CM) - Foot and ankle pain [facility] Comment on above: : M79.673,M25.579 (I CD-10-CM) - Foot and ankle pain Start: 01-15-2024 End: 01-15-2024 Patient encounter procedure 01/15/2024 11:45 AM EDT Office Visit Podiatry [address] [place] [address] Shan Mai [address] [place] [address] Foot and ankle pain [M79.673, M25.579] Podiatry Comment on above: Foot and ankle pain [M79.673, M25.579] Start: 01-15-2024 End: 01-15-2024 ambulatory 01/15/2024 10:15 AM EDT OT/PT/Speech Visit [facility] [address] [place] [address] Carl Masterson, PT [address] [place] [address] Foot and ankle pain [M79.673, M25.579] [facility] Comment on above: Foot and ankle pain [M79.673, M25.579] Start: 12-23-2023 Covid-19 Vaccine ( season) Covid-19 Vaccine ( season) [facility] Start: 12-23-2023 Influenza vaccination Influenza Vacc ine (#1) [facility] Start: 08-27-2023 End: 08-27-2023 Patient encounter procedure 08/27/2023 8:45 AM EDT Office Visit Podiatry [address] [place] [address] Shan Mai [address] [place] [address] Severe swelling of left foot/left ankle for one week Podiatry Comment on above: Severe swelling of l eft foot/left ankle for one week Start: 02-07-2023 ANNUAL PCP TEAM CONTRACT 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 JULI DISEASE VISIT ANNUAL PCP TEAM CHRONIC DISEASE VISIT [facility] Start: 02-07-2023 BP CONTROLLED (<130/80) BP CONTROLLE D (<130/80) [facility] Start: 04-23-2022 DEPRESSION ASSESSMENT DEPRESSION ASS ESSMENT [facility] Start: 1998 BP Controlled (<130/80) BP Controlle d (<130/80) [facility] Start: 1998 HIV SCREENING HIV SCREENING [facility] End: 03-09-2023 NM CARDIAC PERF STRESS/EXERCISE NM CARDIAC PERF STRESS/EXERCISE Radiology Routine FHx: heart disease Chest pain, unspecified type 1 Occurrences starting 02/07/2022 until 03/09/2023 [facility] Work Phone: Comment on above: 1 Occurrences starti ng 02/07/2022 until 03/09/2023 End: 09-14-2024 XR Ankle - left AP and Lateral and oblique XR ANKLE GENERAL 3V AP/LAT/OBL LEFT Radiology Routine Acute left ankle pain 1 Occurrences starting 08/16/2023 until 09/14/2024 [facility] Work Phone: Comment on above: 1 Occurrences starti ng 08/16/2023 until 09/14/2024 XR Ankle - left AP a nd Lateral and oblique XR ANKLE GENERAL 3V AP/LAT/OBL LEFT Radiology Routine Acute left ankle pain 08/16/2023 11:19 AM EDT [facility] End: 08-11-2023 XR KNEE GENERAL 4V AP BOTH/PA BOTH/LAT/MERC LEFT XR KNEE GENERAL 4V AP BOTH/PA BOTH/LAT/MERC LEFT Radiology Routine Left knee pain, unspecified chronicity 1 Occurrences starting 07/12/2022 until 08/11/2023 [facility] Work Phone: Comment on above: 1 Occurrences starti ng 07/12/2022 until 08/11/2023 [facility] Immunizations Immunization Date Immunization Notes Care Provider Cassandra rosario 02-25-2024 COVID-19 vaccine, ag e 12+ yr (PFIZER[employer]ION[employer] COMIRNATY) Sanchez Green MD Work Phone: [facility] 02-25-2024 influenza, seasonal, injectable Sanchez Green MD Work Phone: [facility] 02-22-2023 COVID-19 vaccine, ag e 12+ yr, 2022- season (PFIZER-BIONTECH) Sanchez Green MD Work Phone: [facility] 02-22-2023 influenza, injectabl e, quadrivalent, contains preservative Sanchez Green MD Work Phone: [facility] 02-22-2023 influenza virus vaccine, unspecified formulation Sanchez Green MD Work Phone: [facility] 02-07-2022 COVID-19 booster vaccine, age 12+ yr, bivalent (PFIZER-BIONTECH) Sanchez Green MD Work Phone: [facility] 02-07-2022 influenza, injectabl e, quadrivalent, contains preservative Sanchez Green MD Work Phone: [facility] 03-07-2017 tetanus toxoid, redu fortunato diphtheria toxoid, and acellular pertussis vaccine, adsorbed Sanchez Green MD Work Phone: [facility] 08-30-2006 tetanus toxoid, redu fortunato diphtheria toxoid, and acellular pertussis vaccine, adsorbed Sanchez Green MD Work Phone: [facility] Payers Date Payer Category Payer Self-pay 2024 Unknown [id number] 2022 Private Health Insurance [id number] 2022 Private Health Insurance [id number] 2022 Unknown [id number] 2019 Unknown [id number] 2013 Self-pay [id number] 2013 Unknown [facility] [id number] Unknown [id number] Unknown [id number] Unknown [id number] Unknown [id number] Social History Date Type Detail Facility Start: 10-04-2016 End: 02-07-2022 Tobacco smoking status ALIS Never smoked tobacco [facility] Start: 06-27-2012 End: 02-07-2022 Tobacco use and exposure Smokeless tobacco non-user [facility] Start: 03-02-2020 End: 02-07-2022 Alcohol intake Current non-drinker of alcohol (finding) [facility] Start: 03-01-2020 End: 12-24-2020 History SDOH Alcohol Frequency 2 [facility] Start: 05-15-2019 End: 12-24-2020 History SDOH Social Connections Orthodoxy 1 [facility] Start: 03-01-2020 History SDOH Social Connections Meetings 98 [facility] Start: 05-15-2019 History SDOH Social Connections Living 7 [facility] Start: 03-01-2020 History SDOH Financial 4 [facility] Start: 05-15-2019 Education 17 [facility] Start: 1980 Sex Assigned At Not on file [facility] Start: 02-01-2020 End: 02-07-2022 Exposure to SARS-CoV-2 (event) Not sure [facility] Start: 03-01-2020 End: 12-15-2022 History of Social function [facility] Start: 03-01-2020 End: 12-15-2022 Social connection and isolation panel [facility] Attends Gnosticist Services Not on file [facility] How often to you hav e a drink containing alcohol? Monthly or less [facility] How many standard dr inks containing alcohol do you have on a typical day? 3 or 4 [facility] How hard is it for y ou to pay for the very basics like food, housing, medical care, and heating Not very hard [facility] Do you feel stress - tense, restless, nervous, or anxious, or unable to sleep at night because your mind is troubled all the time - these days [OSQ] Not at all [facility] (I/We) worried fco er (my/our) food would run out before (I/we) got money to buy more. Never true [facility] In the past 12 month s, was there a time when you were not able to pay the mortgage or rent on time? No [facility] Start: 08-16-2023 End: 03-28-2024 Alcohol intake Current drinker of alcohol (finding) [facility] Are you now , , , , never or living with a partner? Never [facility] How often to you hav e a drink containing alcohol? 2-4 times a month [facility] How many standard dr inks containing alcohol do you have on a typical day? 1 or 2 [facility] How often do you hav e 6 or more drinks on 1 occasion? Less than monthly [facility] How hard is it for y ou to pay for the very basics like food, housing, medical care, and heating Somewhat hard [facility] Do you feel stress - tense, restless, nervous, or anxious, or unable to sleep at night because your mind is troubled all the time - these days [OSQ] Only a little [facility] Start: 12-15-2022 Alcohol Comment occ [facility] Start: 12-06-2020 End: 01-05-2021 Exposure to SARS-CoV-2 (event) Yes [facility] Start: 10-04-2016 Alcohol Alcohol [facility] Start: 10-04-2016 Drugs Drugs [facility] [facility] Start: 10-04-2016 Lives Lives [facility] Start: 10-04-2016 Tobacco Use Tobacco Use [facility] Start: 1980 Sex Assigned At Male [facility] Clinical Notes 03-02-2020 to 03-28-2024 Patient InstructionsBrandon Kinsey APRN.CNP - 03/28/2024 7:00 AM Sanchez Cast MD - 02/25/2024 1:20 PM ESTCarl Masterson, PT - 02/19/2024 8:14 AM EDTTCarl deng, PT - 02/19/2024 7:48 AM EDT Note Date & Type Note Facility 03-28-2024 Instructions Brandon Kinsey APRN.CNP - 03/28/2024 7:07 AM EST Start vitamin D supp Repeat labs in 6 months Goal would be 305 lb in 6 months. Brandon Kinsey APRN.COMP[employer]ITIVE [employer]PER documented in this encounter [facility] 03-28-2024 History of Presen t illness Narrative Chief Complaint Patient presents with: Follow Up: 1 mo follow up BP HPI Celso Shine is a 43 year old male who presents here today for Chronic Medical Conditions. follow up for BP. Newly started on losartan 50 mg for hypertension. Patient is tolerating medication without side effects. He is without chest pain or shortness of breath. He does not check his blood pressure at home. Reviewing labs with patient. Vitamin D level low. Would like supplementation. Reviewed cholesterol with patient. HDL low, LDL mildly elevated. Discussed statin initiation versus lifestyle changes. Patient would like to trial lifestyle changes and repeat in 6 months. Patient has a family history of heart disease in his father. Patient is obese. Has had success with losing weight in the past. Understands the long-term medications of not losing weight. Also understands long-term improvements in life with weight loss. The 10-year ASCVD risk score (Henny TINEO, et al., 2019) is: 2.9% Values used to calculate the score: Age: 43 years Sex: Male Is Non- : No Diabetic: No Tobacco smoker: No Systolic Blood Pressure: 130 mmHg Is BP treated: Yes HDL Cholesterol: 35 mg/dL Total Cholesterol: 191 mg/dL Past medical history, appointments, medications, allergies reviewed. EXAM: BP 130/80 Pulse 73 Resp 16 Wt (!) 145.6 kg (321 lb) BMI 41.21 kg/m General Appearance: Well appearing, alert, in no acute distress, well-hydrated, well nourished.. Lungs: Lungs clear to auscultation. No wheezing, rhonchi, rales.. Heart: RRR without murmur, gallop, or rubs. No ectopy. Latest Ref Rng 03/26/2024 Protein, Total 6.3 - 8.0 g/dL 7.6 Albumin 3.9 - 4.9 g/dL 4.2 Calcium 8.5 - 10.2 mg/dL 9.0 Bilirubin, Total 0.2 - 1.3 mg/dL 0.4 Alkaline Phosphatase 38 - 113 U/L 76 AST 14 - 40 U/L 23 ALT 10 - 54 U/L 35 Glucose 74 - 99 mg/dL 69 (L) BUN 9 - 24 mg/dL 12 Creatinine 0.73 - 1.22 mg/dL 0.96 Sodium 136 - 144 mmol/L 141 Potassium 3.7 - 5.1 mmol/L 4.1 Chloride 98 - 107 mmol/L 101 CO2 22 - 30 mmol/L 25 Anion Gap 8 - 15 mmol/L 15 eGFR >=60 mL/min/1.73m 101 Cholesterol, Total <200 mg/dL 191 Triglyceride <150 mg/dL 98 HDL Cholesterol >39 mg/dL 35 (L) Non HDL Cholesterol <130 mg/dL 156 (H) Fasting Time hrs 12 VLDL Cholesterol <30 mg/dL 20 TC:HDL Ratio <5.10 5.46 (H) LDL Cholesterol <100 mg/dL 136 (H) LDL:HDL Ratio <2.54 3.89 (H) Vitamin D 25 Hydroxy 31.0 - 80.0 ng/mL 23.4 (L) ASSESSMENT/PLAN: 1. Essential hypertension, benign - ICD9: 401.1, ICD10: I10 (primary diagnosis) - Controlled - Continue current medications - Recommend home blood pressure monitoring, to bring results to next visit - Encouraged sodium restriction, DASH or Mediterranean diet - Recommend regular aerobic exercise - COMPREHENSIVE METABOLIC PANEL 2. Vitamin D deficiency - ICD9: 268.9, ICD10: E55.9 - Start vitamin D, recheck in 6 months - ERGOCALCIFEROL (VITAMIN D2) 1,250 MCG (50,000 UNIT) CAPSULE - VITAMIN D 25 HYDROXY 3. Hyperlipidemia, mixed - ICD9: 272.2, ICD10: E78.2 - New diagnosis - Counseled on healthy diet and regular exercise - LIPID PANEL BASIC 4. Class 3 severe obesity with body mass index (BMI) of 40.0 to 44.9 in adult, unspecified obesity type, unspecified whether serious comorbidity present (HCC) - ICD9: 278.01, V85.41, ICD10: E66.813, E66.01, Z68.41 Stable - Behavioral intervention -Discussed calorie counting, portion control, intermittent fasting, walking half to 1 mile a few times a week. Collectively discussed trying to get to 305 LB in 6 months. Brandon Kinsey APRN.MARJ RTO in 6 months, sooner if needed. This note was partly generated using [employer] voice recognition dictation and may contain some misspelled or inaccurate words missed on review. documented in this encounter [facility] 02-25-2024 History of Presen t illness Narrative Chief Complaint Patient presents with: Wellness HPI Celso Shine is a 43 year old male who presents here today for physical. Here today for routine wellness. Continues to still work, no real hobbies at this time outside of work. GI/Uro - Notes some loose stool after having a fatty meal. Denies no other issues. No urinary complaints at this time, does not have to get up at night to urinate. Allergies: Uses Claritin 10 mg daily and Flonase. Uses Albuterol inhaler prn and Pulmicort inhaler. Stable on his current regimen at this time. Does have PFT testing scheduled in the next week. Follows with Dr. Rodriguez. BARRIE: Uses BiPAP at 10-14 cm water, uses this most nights. Does not some issues his mask leaking and causing him to wake up with dry eyes which is bothersome. He's supposed to get a new mask this week. Does feel much better when he uses the BiPAP at night. When he doesn't use it he feels hung over, groggy and at times has headaches. HTN: Occasionally checks BP at home, noting high with readings 140/80, sometimes lower. No chest pains, dizziness, or SOB. Not on any bp medications currently. Is agreeable to start medications. Diet/Exercise - Watching his calorie intake, eating around 1975 calories per day. Eating more protein, vegetables and watching his carb intake. Denies much exercise. Vit D - Hx of Vitamin D deficiency. Has been advised to use OTC Vit D 2,000 international unit(s) once daily. Recent labs was normal range. Been working with [employer], Dr. Mai and PT for foot and ankle pain. Completed his last PT appt and doing exercises at home. Foot does feel much better when he does the exercises. Uses Naproxen prn for pain. HM - Agreeable to Flu/Covid vaccine. Past medical history, appointments, medications, allergies reviewed. Previous Medical History PAST MEDICAL HISTORY Diagnosis Date Abdominal pain, other specified site Allergic rhinitis due to other allergen Unspecified essential hypertension Previous Surgical History PAST SURGICAL HISTORY Procedure Laterality Date COLONOSCOPY FLX DX W/COLLJ SPEC WHEN PFRMD 01/11/2012 Colonoscopy PALATE/UVULA SURGERY UNLISTED 2000 Somnoplasty PAST SURGICAL HISTORY OF 2000 wisdom teeth RHINP PRIM LAT&ALAR CRTLGS&/ELVTN NASAL TI 2000 Rhinoplasty Family History FAMILY HISTORY Problem Relation Age of Onset Heart Father First MO age 45, Coronary Artery Disease Father 45 Lipids Father Stroke Maternal Grandmother Coronary Artery Disease Maternal Grandfather Colon Cancer Maternal Grandfather Coronary Artery Disease Paternal Grandfather MO x 4, not sure age of first MO Patient Allergies ALLERGIES Allergen Reactions Codeine purple spots apprea on skin Ibuprofen Swelling Current Medications Current Outpatient Medications on File Prior to Visit Medication Sig ibuprofen (ADVIL) 200 mg tablet Take 200 mg by mouth every 6 hours as needed for pain. naproxen sodium (ALEVE) 220 mg tablet Take 220 mg by mouth two times a day with meals. BIPAP Initiate BiPAP @ 10 and 14 cm of water with humidification. Mask (per patient preference) optional chin strap (if indicated) , filters, tubing, humidifier and lifetime supplies. PULMICORT FLEXHALER 180 mcg/actuation aepb INHALE 2 PUFFS BY MOUTH ONCE DAILY WITH GOOD ORAL CARE albuterol HFA (PROVENTIL HFA, VENTOLIN HFA) 90 mcg/actuation inhaler INHALE 2 PUFFS BY MOUTH 4 TIMES DAILY NEEDED FOR SHORTNESS OF BREATH OR WHEEZING OR COUGH loratadine (CLARITIN) 10 mg tablet Take 10 mg by mouth once daily. fluticasone (FLONASE) 50 mcg/actuation nasal spray Use 1 [place] in each nostril twice daily at 6AM and 9PM. Rinse mouth after use. No current facility-administered medications on file prior to visit. Social History Social History Tobacco Use Smoking status: Never Smokeless tobacco: Never Vaping Use Vaping status: Never Used Substance Use Topics Alcohol use: Yes Comment: occ Drug use: No EXAM: BP 132/86 Pulse 64 Resp 16 Ht 188 cm (6' 2) Wt (!) 144.2 kg (317 lb 14.5 oz) BMI 40.82 kg/m General Appearance: Well appearing, alert, in no acute distress, well-hydrated, well nourished. and Obese. Lungs: Lungs clear to auscultation. No wheezing, rhonchi, rales.. Heart: RRR without murmur, gallop, or rubs. No ectopy. Health Maintenance List BP Controlled (<130/80) Never done Influenza Vaccine(1) due on 12/23/2023 Covid-19 Vaccine(2023- season) due on 12/23/2023 Depression Screening due on 08/15/2024 Anxiety Screening due on 08/15/2024 Annual PCP Team Chronic Disease Visit due on 12/24/2024 DTaP,Tdap,Td Vaccine(3 - Td or Tdap) due on 03/07/2027 Lipid Screening due on 02/23/2028 Hepatitis C Screening Completed HIV Screening Completed HPV Vaccine Aged Out Data reviewed None ASSESSMENT/PLAN: 1. Wellness examination - ICD9: V70.0, ICD10: Z00.00 (primary diagnosis) - Counseled on healthy diet and regular exercise - Follow up for annual exam in one year 2. Essential hypertension, benign - ICD9: 401.1, ICD10: I10 - Elevated normal - Start losartan 50 mg once daily - Recommend home blood pressure monitoring, to bring results to next visit - Encouraged sodium restriction, DASH or Mediterranean diet - Recommend regular aerobic exercise 3. Allergic rhinitis, unspecified seasonality, unspecified trigger - ICD9: 477.9, ICD10: J30.9 - Stable - Continue current medication regimen. 4. Obesity, unspecified class, unspecified obesity type, unspecified whether serious comorbidity present - ICD9: 278.00, ICD10: E66.9 - continue watching diet and exercise - Continue to monitor 5. BARRIE (obstructive sleep apnea) - ICD9: 327.23, ICD10: G47.33 - Continue using BiPAP. 6. Foot and ankle pain - ICD9: 729.5, 719.47, ICD10: M79.673, M25.579 - Stable with continued PT exercises and Naproxen prn. 7. Encounter for immunization - ICD9: V03.89, ICD10: Z23 - [facility] COVID-19 VACCINE AGE 12+ YR (COMIRNATY) - INFLUENZA VACCINE, AGE 6MO-64YR, TRIVALENT (AFLURIA, FLULAVAL, FLUVIRIN, FLUZONE) - Receive in office today 1 month f/u BP with fasting labs. I agree with the Chief Complaint, ROS, and Past Histories independently gathered by the clinical customer support representative and the remaining scribed note accurately describes my personal service to the patient. Sanchez Green MD The documentation for this note was completed by Lexii Parikh MA acting as scribe for Sanchez Green MD. February 25, 2024 1:38 PM. Lexii Parikh MA documented in this encounter [facility] 02-25-2024 Note HNO ID: [id number] Author: SANCHEZ GREEN MD Service: ? Author Type: Physician Type: Progress Notes Filed: 02/25/2024 15:00 Note Text: Chief Complaint Patient presents with: Wellness HPI Celso Shine is a 43 year old male who presents here today for physical. Here today for routine wellness. Continues to still work, no real hobbies at this time outside of work. GI/Uro - Notes some loose stool after having a fatty meal. Denies no other issues. No urinary complaints at this time, does not have to get up at night to urinate. Allergies: Uses Claritin 10 mg daily and Flonase. Uses Albuterol inhaler prn and Pulmicort inhaler. Stable on his current regimen at this time. Does have PFT testing scheduled in the next week. Follows with Dr. Rodriguez. BARRIE: Uses BiPAP at 10-14 cm water, uses this most nights. Does not some issues his mask leaking and causing him to wake up with dry eyes which is bothersome. He's supposed to get a new mask this week. Does feel much better when he uses the BiPAP at night. When he doesn't use it he feels hung over, groggy and at times has headaches. HTN: Occasionally checks BP at home, noting high with readings 140/80, sometimes lower. No chest pains, dizziness, or SOB. Not on any bp medications currently. Is agreeable to start medications. Diet/Exercise - Watching his calorie intake, eating around 1975 calories per day. Eating more protein, vegetables and watching his carb intake. Denies much exercise. Vit D - Hx of Vitamin D deficiency. Has been advised to use OTC Vit D 2,000 international unit(s) once daily. Recent labs was normal range. Been working with [employer], Dr. Mai and PT for foot and ankle pain. Completed his last PT appt and doing exercises at home. Foot does feel much better when he does the exercises. Uses Naproxen prn for pain. HM - Agreeable to Flu/Covid vaccine. Past medical history, appointments, medications, allergies reviewed. Previous Medical History PAST MEDICAL HISTORY Diagnosis Date Abdominal pain, other specified site Allergic rhinitis due to other allergen Unspecified essential hypertension Previous Surgical History PAST SURGICAL HISTORY Procedure Laterality Date COLONOSCOPY FLX DX W/COLLJ SPEC WHEN PFRMD 01/11/2012 Colonoscopy PALATE/UVULA SURGERY UNLISTED 2000 Somnoplasty PAST SURGICAL HISTORY OF 2000 wisdom teeth RHINP PRIM LATANDALAR CRTLGSAND/ELVTN NASAL TI 2001 Rhinoplasty Family History FAMILY HISTORY Problem Relation Age of Onset Heart Father First [place] age 45, Coronary Artery Disease Father 45 Lipids Father Stroke Maternal Grandmother Coronary Artery Disease Maternal Grandfather Colon Cancer Maternal Grandfather Coronary Artery Disease Paternal Grandfather MO x 4, not sure age of first MO Patient Allergies ALLERGIES Allergen Reactions Codeine purple spots apprea on skin Ibuprofen Swelling Current Medications Current Outpatient Medications on File Prior to Visit Medication Sig ibuprofen (ADVIL) 200 mg tablet Take 200 mg by mouth every 6 hours as needed for pain. naproxen sodium (ALEVE) 220 mg tablet Take 220 mg by mouth two times a day with meals. BIPAP Initiate BiPAP @ 10 and 14 cm of water with humidification. Mask (per patient preference) optional chin strap (if indicated) , filters, tubing, humidifier and lifetime supplies. PULMICORT FLEXHALER 180 mcg/actuation aepb INHALE 2 PUFFS BY MOUTH ONCE DAILY WITH GOOD ORAL CARE albuterol HFA (PROVENTIL HFA, VENTOLIN HFA) 90 mcg/actuation inhaler INHALE 2 PUFFS BY MOUTH 4 TIMES DAILY NEEDED FOR SHORTNESS OF BREATH OR WHEEZING OR COUGH loratadine (CLARITIN) 10 mg tablet Take 10 mg by mouth once daily. fluticasone (FLONASE) 50 mcg/actuation nasal spray Use 1 [place] in each nostril twice daily at 6AM and 9PM. Rinse mouth after use. No current facility-administered medications on file prior to visit. Social History Social History Tobacco Use Smoking status: Never Smokeless tobacco: Never Vaping Use Vaping status: Never Used Substance Use Topics Alcohol use: Yes Comment: occ Drug use: No EXAM: BP 132/86 Pulse 64 Resp 16 Ht 188 cm (6' 2) Wt (!) 144.2 kg (317 lb 14.5 oz) BMI 40.82 kg/m? General Appearance: Well appearing, alert, in no acute distress, well-hydrated, well nourished. and Obese. Lungs: Lungs clear to auscultation. No wheezing, rhonchi, rales.. Heart: RRR without murmur, gallop, or rubs. No ectopy. Health Maintenance List BP Controlled (<130/80) Never done Influenza Vaccine(1) due on 12/23/2023 Covid-19 Vaccine( season) due on 12/23/2023 Depression Screening due on 08/15/2024 Anxiety Screening due on 08/15/2024 Annual PCP Team Chronic Disease Visit due on 12/24/2024 DTaP,Tdap,Td Vaccine(3 - Td or Tdap) due on 03/07/2027 Lipid Screening due on 02/23/2028 Hepatitis C Screening Completed HIV Screening Completed HPV Vaccine Aged Out Data r (more content not included)... [facility] 02-19-2024 History of Presen t illness Narrative Program_ID:[id number] Access Code: [email or web address] URL: [email or web address] Date: 02-19-2024 Prepared By: Carl Masterson Program Notes Exercises - Supine Ankle Circles - 1 x daily - 7 x weekly - 5 sets - 10 reps - Supine Ankle Circles - 1 x daily - 7 x weekly - 5 sets - 10 reps - Supine Ankle Pumps - 1 x daily - 7 x weekly - 5 sets - 10 reps - Gastroc Stretch on Wall - 1 x daily - 7 x weekly - 5 sets - 1 reps - Gastroc Stretch on Wall - 1 x daily - 7 x weekly - 5 sets - 1 reps - Towel Scrunches - 1 x daily - 7 x weekly - 3 sets - 10 reps - Seated Great Toe Extension - 1 x daily - 7 x weekly - 3 sets - 10 reps - Seated Lesser Toes Extension - 1 x daily - 7 x weekly - 3 sets - 10 reps - Long Sitting Ankle Inversion with Anchored Resistance - 1 x daily - 7 x weekly - 3 sets - 10 reps - Long Sitting Ankle Inversion with Anchored Resistance - 1 x daily - 7 x weekly - 3 sets - 10 reps - Arch Lifting - 1 x daily - 7 x weekly - 3 sets - 10 reps - Alternating Single Leg Balance - Foot Behind - 1 x daily - 7 x weekly - 3 sets - 10 reps Images from the original note were not included. Episode Visit Count: 3 Therapist That Will Accept/Oversee The Plan Of Care: Carl Masterson PT Start of Care Date: 01/15/24 Onset Date: 12/16/23 Patient Identified by Name and Date of : Yes REHABILITATION AND SPORTS THERAPY PHYSICAL THERAPY DISCONTINUANCE OF CARE PLAN OF CARE UPDATE: Assessment: Celso Shine is discontinued from Physical Therapy services due to goal achievement and maximal benefit.. Patient was seen for 3 visits from Start of Care Date: 01/15/24 to 02/19/2024 and treatment included: Therapeutic exercise, Self-residential management, and Patient/Family/Caregiver Education. Goals updated 02/19/2024 Goals for Episode of Care: established 01/15/24 [place] in home exercise program. - MET Patient will decrease pain rating by 2 points to meet minimal clinical important difference for numeric pain rating scale. - MET Perform standing and walking for 30 minutes without pain. - MET Improve flexibility of B gastrocs for normalized gait - MET Normal gait. - MET Patient Goals: Reduce the pain SUBJECTIVE: Hurt the foot last week but the pain went away after 2 days. Injuries recover faster. Dexterity is better. Pt feels upper 90's improvement at this point. Patient Goals: Reduce the pain Functional Limitations: nothing Prior Level of Function: Independent without limitations Intake Information: Prescription present Pain: Pain Pain Level: 0 Pain Location: Ankle - Left, Foot - Left Additional Pain Information : Location 2 Pain Level 2: 0 Pain Location 2: Foot - Right PROMIS Scales 02/19/2024 02/18/2024 01/14/2024 Higher is Better Phys Func - Score 29 (severe dysfunction) 36 (moderate dysfunction) Phys Func - Percentile 2 8 Self-Eff Symptom - Score 59 (Average) 38 (Low) Self-Eff Symptom - Percentile 82 12 T-scores: mean of general population = 50. 5 points is clinically meaningfully difference Percentiles provide an indication of how the patient's score ranks in relation to the general population. Higher percentile rankings indicate better function/quality of life. 50th percentile is the average of the general population and indicates half of respondents had a worse score. OBJECTIVE MEASURES WITH LEVEL OF FUNCTION: LE AROM R Ankle Dorsiflexion: 18 Degrees L Ankle Dorsiflexion: 15 Degrees LE Flexibility Flexibility: Gastrocnemius Flexibility R Gastrocnemius Flexibility: WNL L Gastrocnemius Flexibility: WNL LE Strength R LE Strength: Grossly 5/5 L LE Strength: Grossly 5/5 Gait Gait Observation: WNL TREATMENT: Therapeutic Exercise: 1: All objective measures taken this session 2: B 1st digit ext and 2-5th flexion 3 x 10 3: 1st digit flexion and 2-5th ext 3 x 10 4: 1st and 5th digit flexion and 2-4th digit ext 3 x 10 5: Ankle inversion lvl 5 band x 10 each leg Skilled Intervention: Patient was educated in proper exercise technique and purpose for exercises. Provided written instruction for home exercise program to facilitate proper performance and compliance. Correct performance of therapeutic exercises was facilitated with verbal and visual cuing. Billing Therapeutic Exercise Treatment Minutes: 41 Skilled Treatment Time Minutes (timed and untimed codes): 41 Total Session Time (minutes): 41 Session Start Time : 747 Session Stop Time : 828 Carl Masterson PT documented in this encounter [facility] 02-19-2024 Note HNO ID: [id number] Author: CARL MASTERSON PT Service: ? Author Type: Physical Therapist Type: Progress Notes Filed: 02/19/2024 08:30 Note Text: Episode Visit Count: 3 Therapist That Will Accept/Oversee The Plan Of Care: Carl Masterson PT Start of Care Date: 01/15/24 Onset Date: 12/16/23 Patient Identified by Name and Date of : Yes REHABILITATION AND SPORTS THERAPY PHYSICAL THERAPY DISCONTINUANCE OF CARE PLAN OF CARE UPDATE: Assessment: Celso Shine is discontinued from Physical Therapy services due to goal achievement and maximal benefit.. Patient was seen for 3 visits from Start of Care Date: 01/15/24 to 02/19/2024 and treatment included: Therapeutic exercise, Self-residential management, and Patient/Family/Caregiver Education. Goals updated 02/19/2024 Goals for Episode of Care: established 01/15/24 [place] in home exercise program. - MET Patient will decrease pain rating by 2 points to meet minimal clinical important difference for numeric pain rating scale. - MET Perform standing and walking for 30 minutes without pain. - MET Improve flexibility of B gastrocs for normalized gait - MET Normal gait. - MET Patient Goals: Reduce the pain SUBJECTIVE: Hurt the foot last week but the pain went away after 2 days. Injuries recover faster. Dexterity is better. Pt feels upper 90's improvement at this point. Patient Goals: Reduce the pain Functional Limitations: nothing Prior Level of Function: Independent without limitations Intake Information: Prescription present Pain: Pain Pain Level: 0 Pain Location: Ankle - Left, Foot - Left Additional Pain Information : Location 2 Pain Level 2: 0 Pain Location 2: Foot - Right PROMIS Scales 02/19/2024 02/18/2024 01/14/2024 Higher is Better Phys Func - Score 29 (severe dysfunction) 36 (moderate dysfunction) Phys Func - Percentile 2 8 Self-Eff Symptom - Score 59 (Average) 38 (Low) Self-Eff Symptom - Percentile 82 12 T-scores: mean of general population = 50. 5 points is clinically meaningfully difference Percentiles provide an indication of how the patient's score ranks in relation to the general population. Higher percentile rankings indicate better function/quality of life. 50th percentile is the average of the general population and indicates half of respondents had a worse score. OBJECTIVE MEASURES WITH LEVEL OF FUNCTION: LE AROM R Ankle Dorsiflexion: 18 Degrees L Ankle Dorsiflexion: 15 Degrees LE Flexibility Flexibility: Gastrocnemius Flexibility R Gastrocnemius Flexibility: WNL L Gastrocnemius Flexibility: WNL LE Strength R LE Strength: Grossly 5/5 L LE Strength: Grossly 5/5 Gait Gait Observation: WNL TREATMENT: Therapeutic Exercise: 1: All objective measures taken this session 2: B 1st digit ext and 2-5th flexion 3 x 10 3: 1st digit flexion and 2-5th ext 3 x 10 4: 1st and 5th digit flexion and 2-4th digit ext 3 x 10 5: Ankle inversion lvl 5 band x 10 each leg Skilled Intervention: Patient was educated in proper exercise technique and purpose for exercises. Provided written instruction for home exercise program to facilitate proper performance and compliance. Correct performance of therapeutic exercises was facilitated with verbal and visual cuing. Billing Therapeutic Exercise Treatment Minutes: 41 Skilled Treatment Time Minutes (timed and untimed codes): 41 Total Session Time (minutes): 41 Session Start Time : 747 Session Stop Time : 828 Carl Masterson PT [facility] 01-29-2024 History of Presen t illness Narrative Program_ID:[id number] Access Code: [email or web address] URL: [email or web address] Date: 01-29-2024 Prepared By: Carl Masterson Program Notes Exercises - Supine Ankle Circles - 1 x daily - 7 x weekly - 5 sets - 10 reps - Supine Ankle Circles - 1 x daily - 7 x weekly - 5 sets - 10 reps - Supine Ankle Pumps - 1 x daily - 7 x weekly - 5 sets - 10 reps - Gastroc Stretch on Wall - 1 x daily - 7 x weekly - 5 sets - 1 reps - Gastroc Stretch on Wall - 1 x daily - 7 x weekly - 5 sets - 1 reps - Towel Scrunches - 1 x daily - 7 x weekly - 3 sets - 10 reps - Seated Great Toe Extension - 1 x daily - 7 x weekly - 3 sets - 10 reps - Seated Lesser Toes Extension - 1 x daily - 7 x weekly - 3 sets - 10 reps Episode Visit Count: 2 Therapist That Will Accept/Oversee The Plan Of Care: Carl Masterson PT Start of Care Date: 01/15/24 Onset Date: 12/16/23 Patient Identified by Name and Date of : Yes REHABILITATION AND SPORTS THERAPY PHYSICAL THERAPY TREATMENT NOTE ASSESSMENT: Celso Shine tolerated the session with no issues. He demonstrated no pain with newly added therapeutic exercises. The patient will continue to benefit from ongoing skilled physical therapy to progress toward set goals and for reassessment by supervising therapist. PLAN FOR NEXT VISIT: Foot yoga and calf stretching SUBJECTIVE: Tries to split the exercises to morning and evening. Cannot miss the exercises more than 2 days his calf will cramp. Walking 5-10 min at a time is getting easier. Wearing the orthotics more is helping. Pain: Pain Pain Level: 0 Pain Location: Ankle - Left, Foot - Left Additional Pain Information : Location 2 Pain Level 2: 0 Pain Location 2: Foot - Right OBJECTIVE MEASURES WITH LEVEL OF FUNCTION: TREATMENT: Therapeutic Exercise: 1: B toe flexion on towel 3 x 10 with 2 sec hold 2: B 1st digit ext and 2-5th flexion 3 x 10 3: 1st digit flexion and 2-5th ext 3 x 10 4: 1st and 5th digit flexion and 2-4th digit ext 3 x 10 5: Standing calf 4 x 30 sec in standing each leg Skilled Intervention: Patient was educated in proper exercise technique and purpose for exercises. Correct performance of therapeutic exercises was facilitated with verbal and visual cuing. Billing Therapeutic Exercise Treatment Minutes: 43 Skilled Treatment Time Minutes (timed and untimed codes): 43 Total Session Time (minutes): 43 Session Start Time : 826 Session Stop Time : 909 Carl Masterson PT documented in this encounter [facility] 01-29-2024 Note HNO ID: [id number] Author: CARL MASTERSON PT Service: ? Author Type: Physical Therapist Type: Progress Notes Filed: 01/29/2024 09:11 Note Text: Episode Visit Count: 2 Therapist That Will Accept/Oversee The Plan Of Care: Carl Masterson PT Start of Care Date: 01/15/24 Onset Date: 12/16/23 Patient Identified by Name and Date of : Yes REHABILITATION AND SPORTS THERAPY PHYSICAL THERAPY TREATMENT NOTE ASSESSMENT: Celso Shine tolerated the session with no issues. He demonstrated no pain with newly added therapeutic exercises. The patient will continue to benefit from ongoing skilled physical therapy to progress toward set goals and for reassessment by supervising therapist. PLAN FOR NEXT VISIT: Foot yoga and calf stretching SUBJECTIVE: Tries to split the exercises to morning and evening. Cannot miss the exercises more than 2 days his calf will cramp. Walking 5-10 min at a time is getting easier. Wearing the orthotics more is helping. Pain: Pain Pain Level: 0 Pain Location: Ankle - Left, Foot - Left Additional Pain Information : Location 2 Pain Level 2: 0 Pain Location 2: Foot - Right OBJECTIVE MEASURES WITH LEVEL OF FUNCTION: TREATMENT: Therapeutic Exercise: 1: B toe flexion on towel 3 x 10 with 2 sec hold 2: B 1st digit ext and 2-5th flexion 3 x 10 3: 1st digit flexion and 2-5th ext 3 x 10 4: 1st and 5th digit flexion and 2-4th digit ext 3 x 10 5: Standing calf 4 x 30 sec in standing each leg Skilled Intervention: Patient was educated in proper exercise technique and purpose for exercises. Correct performance of therapeutic exercises was facilitated with verbal and visual cuing. Billing Therapeutic Exercise Treatment Minutes: 43 Skilled Treatment Time Minutes (timed and untimed codes): 43 Total Session Time (minutes): 43 Session Start Time : 826 Session Stop Time : 909 Carl Masterson PT [facility] 01-15-2024 Prashanth PoeShan haro Hunter 01/15/2024 12:04 PM EDT Images from the original note were not included. What is Plantar Fasciitis? Plantar fasciitis is the most common cause of heel pain. The pain is caused by inflammation of the plantar fascia. If you strain your plantar fascia, it becomes weak, swollen and irritated (inflamed). The resulting pain may be isolated in the heel or may appear at different points on the bottom of the foot, from time to time; it may occur in one foot or both. Some think that plantar fasciitis pain is caused by irritation of nerves from tissue swelling or inflammation, but it is debatable. Plantar fasciitis is common in middle-aged people; it also occurs in younger people who are on their feet a lot, such as athletes or soldiers. The plantar fascia is a strong band of connective tissue that extends from the base of the toes, along the bottom of the foot, to the bottom of the heel (calcaneous bone); it acts like a bowstring to maintain the arch of the foot. What are heel spurs? The inflammatory reaction of the heel bone may produce spike-like projections of new bone, called heel spurs. The spurs sometimes show on X-rays. They neither cause the initial pain nor do they cause the initial problem. However, later, having to walk on spurs may cause sharp pain. What causes plantar fasciitis? Plantar fasciitis is caused by straining the ligament that supports your arch. Repeated strain can cause tiny tears in the ligament. These lead to pain and swelling. During walking, the plantar fascia experiences tension up to twice the body weight with each step. While this is normal, those who spend much time on their feet, such as nurses, prepared foods supervisor/waiters, and mail carriers, often experience plantar fasciitis. Athletes involved in tennis or other racquet sports, race walking, jogging or running also show a higher incidence of plantar fasciitis than do those participating in other activities. Thus, it's clear that plantar fasciitis is predominantly an overuse injury. In fact, any activity that results in prolonged tension and stress on the plantar fascia may cause plantar fasciitis. It is possible that changes in footwear may play a role in causing plantar fasciitis, no matter what activity is occurring. Those who are overweight are prone to plantar fasciitis. This is true even for sedentary people who get little physical activity. Abnormalities of the foot and ankle joints may predispose some individuals to development of plantar fasciitis (specifically, over pronation of the subtalar joint). Contributing Factors * Flat feet * Toe running, hill running * Sudden weight increase * High-arched, rigid feet * Soft terrain, e.g. running on sand * Obesity * Pronated feet (rolled inward) * Sudden increase in activity * Family tendency * Poor shoe support * Worn out or poorly fitted shoes * Increasing age * Walking, standing or running for long periods of time, especially on hard surfaces. How is the Injury Treated? Rest Your Feet: Limit, or if possible, stop activities that are causing your heel pain. Try to avoid running or walking on hard surfaces, such as concrete. Use pain as your guide. If your foot is too painful, rest it. Ice: Ice the sore area for 30 to 60 minutes, several times a day, to reduce inflammation and relieve pain. Apply a plastic bag of crushed ice (or a bag of frozen peas) over a towel. Ice the sore area for 15 minutes after activity/exercise. Application of heat is not generally recommended, as heat expands the bone and connective tissue, perhaps exerting greater pressure on nerves and thereby increasing pain. If heat is used, follow it with ice. Medication: If your condition developed recently, anti-inflammatory/analgesic medication, combined with heel pads (see below) may be all that is necessary to relieve pain and to reduce inflammation. If no pain relief has occurred after 2-3 weeks, however, your doctor may inject either cortisone or local anesthetic directly into the tender area. Exercises: Do simple exercises, such as calf stretches and towel stretches (see below) several times a day, especially when you first get up in the morning. These can help your ligament become more flexible and strengthen the muscles that support your arch. Shoes: Poorly fitting shoes can cause plantar fasciitis. The best type of shoe to wear is a good walking or running shoe with good shock absorption and excellent arch support. You should choose the one that fits the best. [place] with your athletic shoes to find a pair that is comfortable and causes fewer symptoms. Put your shoes on as soon as you get out of bed; going barefoot or wearing slippers may make your pain worse. Good brands include (but are not limited to): New Balance, Asics, Saucony, SAS and Merrel s. Taping: Your doctor may tape your foot to maintain the arch. This takes some of the tension off the plantar fascia. Weight Loss: If your weight is putting extra stress on your feet, your doctor may encourage you to try a weight-loss program. Orthotics: An orthotic insole is a molded piece of rubber, plastic, or other material that you insert into your shoe. It corrects the alignment of your foot and cushions your foot from excessive pounding. These may be prescription or non-prescription. Prescription orthotics are custom-fitted and may fit better and control pain better, but are very expensive. Night Splints: A night splint holds the foot with the toes pointed up and the ankle at a 90-degree angle. This position applies a constant, gentle stretch to the plantar fascia. Corticosteroid Shots: Steroids may be injected into the tender area to reduce inflammation. REHAB Exercises to stretch the plantar fascia, the calf muscles, and the Achilles tendon. Tightness of the muscles of the calves may contribute to plantar fasciitis, so stretching the calf muscles is important to rehabilitation, as is stretching of the plantar fascia itself. Plantar fascial stretches Assisted Dorsiflexion/Plantar Fascia Stretch: Sit on the floor or ground, barefoot, with both legs outstretched. Use a towel or elastic band and wrap it around the ball (and not the toes) of the affected foot. Use the towel or elastic band to provide resistance to upward movement of the forefoot. Pull foot upward (toward your body) with the help of the elastic band or towel, and then return to the starting position. Ten repetitions are recommended. Perform the sequence at least three times a day. Alternate Plantar Fascia Stretch: Sit upright in a chair, barefoot. Place the ankle of the affected foot on your opposite knee. Using the same hand as the affected foot, reach across and grab the toes. Flex the ankle toward and pull the toes toward the varela. To test the stretch, place the thumb of your hand on the bottom of the foot. You should be able to feel the cord-like plantar fascia, running the length of the foot. Hold the stretch for a count of 10, then relax. Repeat 10 times. Do the sequence at least three times a day. Achilles/Calf Stretches Strengthening the muscles of the calves may contribute to successful rehabilitation of plantar fasciitis, as well as prevent reoccurrence. The exercises below will help strengthen the calf muscles. Calf and Achilles Tendon Stretch (Gastrocnemius Stretch): Face a wall, standing an arm's length away. Place one foot back. Place both hands on the wall. Bend the elbows and knee of your forward leg, keeping the heel of the backward foot on the floor and keeping your body straight (aligned), until your forehead nearly touches the wall, or until significant stretch is felt in the muscles of the calf of the backward leg. Hold this position for 10 to 15 seconds. Extend elbows (straighten your arms and stand upright again) and maintain this position for 10 seconds. Repeat this cycle 15 to 20 times. Switch legs and repeat the exercise. documented in this encounter [facility] 01-15-2024 Note HNO ID: [id number] Author: SHAN MAI, ? Service: ? Author Type: Physician Type: Progress Notes Filed: 01/15/2024 12:32 Note Text: Consultation requested by Dr. Green for an opinion regarding foot pain. My final recommendations will be communicated back to the requesting physician by way of shared Medical record or letter to requesting physician via [place] mail. Initial Podiatric Office Visit: Chief Complaint: This 43 year old male who presents with chief complaint:b/l ankle pain L>R HPI Patient presents to clinic for evaluation of b/l feet Complains of pain along the medial isntep Has been present since July but noticed the pain started to increase over the past few weeks. Patient states the pain is incresaing the longer he is on his foot. Has treated with icing, over the counter medication. PAIN EVALUATION 01/15/2024 0607 01/15/2024 1121 Pain Level: 4 2 Pain Location: Other: See Comment Foot-Left Description: Dull;Stiffness;Tenderness Sharp Duration Amount of Time: 1 1 Duration Units: Months Months Frequency: Intermittent Intermittent Intervention/Comfort measure: Medication;Positioning;Other: See comment Medication;Relaxation;Cold;Othe r: See comment Tristen wrap Comments: RICE -- Hemoglobin A1C (%) Date Value 02/22/2023 5.3 12/24/2020 5.1 09/27/2017 5.2 12/06/2015 5.4 PCP: Sanchez Green MD PAST MEDICAL HISTORY Diagnosis Date Abdominal pain, other specified site Allergic rhinitis due to other allergen Unspecified essential hypertension Current Outpatient Medications Medication Sig BIPAP Initiate BiPAP @ 10 and 14 cm of water with humidification. Mask (per patient preference) optional chin strap (if indicated) , filters, tubing, humidifier and lifetime supplies. PULMICORT FLEXHALER 180 mcg/actuation aepb INHALE 2 PUFFS BY MOUTH ONCE DAILY WITH GOOD ORAL CARE albuterol HFA (PROVENTIL HFA, VENTOLIN HFA) 90 mcg/actuation inhaler INHALE 2 PUFFS BY MOUTH 4 TIMES DAILY NEEDED FOR SHORTNESS OF BREATH OR WHEEZING OR COUGH loratadine (CLARITIN) 10 mg tablet Take 10 mg by mouth once daily. fluticasone (FLONASE) 50 mcg/actuation nasal spray Use 1 [place] in each nostril twice daily at 6AM and 9PM. Rinse mouth after use. ibuprofen (ADVIL) 200 mg tablet Take 200 mg by mouth every 6 hours as needed for pain. naproxen sodium (ALEVE) 220 mg tablet Take 220 mg by mouth two times a day with meals. No current facility-administered medications for this visit. ALLERGIES Allergen Reactions Codeine purple spots apprea on skin Ibuprofen Swelling PAST SURGICAL HISTORY Procedure Laterality Date COLONOSCOPY FLX DX W/COLLJ SPEC WHEN PFRMD 01/11/2012 Colonoscopy PALATE/UVULA SURGERY UNLISTED 2000 Somnoplasty PAST SURGICAL HISTORY OF 2000 wisdom teeth RHINP PRIM LATANDALAR CRTLGSAND/ELVTN NASAL TI 2001 Rhinoplasty FAMILY HISTORY Problem Relation Age of Onset Heart Father First [place] age 45, Coronary Artery Disease Father 45 Lipids Father Stroke Maternal Grandmother Coronary Artery Disease Maternal Grandfather Colon Cancer Maternal Grandfather Coronary Artery Disease Paternal Grandfather [place] x 4, not sure age of first [place] Social History Tobacco Use Smoking status: Never Smokeless tobacco: Never Vaping Use Vaping status: Never Used Substance Use Topics Alcohol use: Yes Comment: occ Drug use: No REVIEW OF SYSTEMS GENERAL: Negative for Malaise, significant weight loss, fever RESPIRATORY: Negative for cough, wheezing and shortness of breath CARDIOVASCULAR: Negative for chest pain, leg swelling and palpitations GI: Negative for abdominal discomfort, blood in stools or black stools and change in bowel habits : Negative for dysuria, frequency and incontinence MUSCULOSKELETAL: Negative for joint pain or swelling, back pain, and muscle pain. SKIN: Negative for lesions, rash, and itching. HEMATOLOGY/LYMPHOLOGY Negative for prolonged bleeding, bruising easily, and swollen nodes. ENDOCRINE: Negative for cold or heat intolerance, polyuria, polydipsia and goiter. NEURO: negative Physical Exam: Constitutional: Pt is a well developed 43 year old male who is alert, oriented and cooperative Eyes: Following during examination. No redness or drainage. Respiratory: RR normal and nonlabored. Even breathing. No evidence of distress or shortness of breath. Psychology: Patient is engaged during conversation. Normal affect and mood. Does not appear depressed or anxious during encounter. Vascular: Dorsalis pedis and posterior tibial pulses palpable as b/l Capillary Fill time < 5 seconds to digits 1-5 b/l Skin temperature warm to warm proximal to distal b/l Hair growth present to digits Neurological: intact light touch/epicritic sensation - tinel b/l intact protective sensation no significant neurological deficits Dermatological: Nails 1-5 b/l appear normal. Webspaces clean and dry 1-4 b/l. Skin (more content not included)... [facility] 01-15-2024 History of Presen t illness Narrative Images from the original note were not included. Consultation requested by Dr. Green for an opinion regarding foot pain. My final recommendations will be communicated back to the requesting physician by way of shared Medical record or letter to requesting physician via [place] mail. Initial Podiatric Office Visit: Chief Complaint: This 43 year old male who presents with chief complaint:b/l ankle pain L>R HPI Patient presents to clinic for evaluation of b/l feet Complains of pain along the medial isntep Has been present since July but noticed the pain started to increase over the past few weeks. Patient states the pain is incresaing the longer he is on his foot. Has treated with icing, over the counter medication. PAIN EVALUATION 01/15/2024 0607 01/15/2024 1121 Pain Level: 4 2 Pain Location: Other: See Comment Foot-Left Description: Dull;Stiffness;Tenderness Sharp Duration Amount of Time: 1 1 Duration Units: Months Months Frequency: Intermittent Intermittent Intervention/Comfort measure: Medication;Positioning;Other: See comment Medication;Relaxation;Cold;Othe r: See comment Tristen wrap Comments: RICE -- Hemoglobin A1C (%) Date Value 02/22/2023 5.3 12/24/2020 5.1 09/27/2017 5.2 12/06/2015 5.4 PCP: Sanchez Green MD PAST MEDICAL HISTORY Diagnosis Date Abdominal pain, other specified site Allergic rhinitis due to other allergen Unspecified essential hypertension Current Outpatient Medications Medication Sig BIPAP Initiate BiPAP @ 10 and 14 cm of water with humidification. Mask (per patient preference) optional chin strap (if indicated) , filters, tubing, humidifier and lifetime supplies. PULMICORT FLEXHALER 180 mcg/actuation aepb INHALE 2 PUFFS BY MOUTH ONCE DAILY WITH GOOD ORAL CARE albuterol HFA (PROVENTIL HFA, VENTOLIN HFA) 90 mcg/actuation inhaler INHALE 2 PUFFS BY MOUTH 4 TIMES DAILY NEEDED FOR SHORTNESS OF BREATH OR WHEEZING OR COUGH loratadine (CLARITIN) 10 mg tablet Take 10 mg by mouth once daily. fluticasone (FLONASE) 50 mcg/actuation nasal spray Use 1 [place] in each nostril twice daily at 6AM and 9PM. Rinse mouth after use. ibuprofen (ADVIL) 200 mg tablet Take 200 mg by mouth every 6 hours as needed for pain. naproxen sodium (ALEVE) 220 mg tablet Take 220 mg by mouth two times a day with meals. No current facility-administered medications for this visit. ALLERGIES Allergen Reactions Codeine purple spots apprea on skin Ibuprofen Swelling PAST SURGICAL HISTORY Procedure Laterality Date COLONOSCOPY FLX DX W/COLLJ SPEC WHEN PFRMD 01/11/2012 Colonoscopy PALATE/UVULA SURGERY UNLISTED 2000 Somnoplasty PAST SURGICAL HISTORY OF 2000 wisdom teeth RHINP PRIM LAT&ALAR CRTLGS&/ELVTN NASAL TI 2001 Rhinoplasty FAMILY HISTORY Problem Relation Age of Onset Heart Father First [place] age 45, Coronary Artery Disease Father 45 Lipids Father Stroke Maternal Grandmother Coronary Artery Disease Maternal Grandfather Colon Cancer Maternal Grandfather Coronary Artery Disease Paternal Grandfather [place] x 4, not sure age of first [place] Social History Tobacco Use Smoking status: Never Smokeless tobacco: Never Vaping Use Vaping status: Never Used Substance Use Topics Alcohol use: Yes Comment: occ Drug use: No REVIEW OF SYSTEMS GENERAL: Negative for Malaise, significant weight loss, fever RESPIRATORY: Negative for cough, wheezing and shortness of breath CARDIOVASCULAR: Negative for chest pain, leg swelling and palpitations GI: Negative for abdominal discomfort, blood in stools or black stools and change in bowel habits : Negative for dysuria, frequency and incontinence MUSCULOSKELETAL: Negative for joint pain or swelling, back pain, and muscle pain. SKIN: Negative for lesions, rash, and itching. HEMATOLOGY/LYMPHOLOGY Negative for prolonged bleeding, bruising easily, and swollen nodes. ENDOCRINE: Negative for cold or heat intolerance, polyuria, polydipsia and goiter. NEURO: negative Physical Exam: Constitutional: Pt is a well developed 43 year old male who is alert, oriented and cooperative Eyes: Following during examination. No redness or drainage. Respiratory: RR normal and nonlabored. Even breathing. No evidence of distress or shortness of breath. Psychology: Patient is engaged during conversation. Normal affect and mood. Does not appear depressed or anxious during encounter. Vascular: Dorsalis pedis and posterior tibial pulses palpable as b/l Capillary Fill time < 5 seconds to digits 1-5 b/l Skin temperature warm to warm proximal to distal b/l Hair growth present to digits Neurological: intact light touch/epicritic sensation - tinel b/l intact protective sensation no significant neurological deficits Dermatological: Nails 1-5 b/l appear normal. Webspaces clean and dry 1-4 b/l. Skin appears well hydrated and supple. good color, texture, turgor. No open lesions present. No callosities present. Musculoskeletal/Orthopaedic: Patient has pain to palpation of b/l medial arch Foot type is skewfoot structurally AJ ROM is full with knee extended and flexed 1st MPJ is full when loaded and no pain or crepitus are noted with ROM. MTJ, STJ are full and free of pain and crepitus. +5/5 muscle strength dorsiflexion, plantarflexion, inversion, eversion b/l Radiographs: 3 views right foot reviewed January 15, 2024: I have personally reviewed and interpreted these XR myself: no acute fracture ASSESSMENT: (M72.2) Plantar fasciitis (primary encounter diagnosis) (M79.673, M25.579) Foot and ankle pain PLAN: 1. Initial Office Visit - A thorough review of the patient's PMH and Podiatric physical exam was completed. 2. Patient advised to perform stretching excercises, icing, and to make appropriate shoe gear changes to include wearing athletic-type shoes with supportive insoles. No barefoot walking. Patient also given written instructions on how to correctly perform the stretching of the achilles tendon/calf stretches, and the heel spur/plantar fasciitis regimen. 3. Patient advised to seek wide, deep toe box, accomodative, comfortable, lace-up, athletic/walking type footwear that includes motion control characteristics for support and cushion that need to be worn at all times when weight-bearing. Shoes should be tested for torsional stability as well as proper bending at the toebox rather than at the midfoot. Good quality shoes such as, but not limited to, New Balance or Asics are examples of more proper foot gear. 4. Patient recommended to continue with custom insoles for proper support of the arch in order to alleviate the tension and stress on the plantar fascia associated with normal daily walking. Patient advised that these modalities used in conjunction with stretching and icing are able to alleviate most symptoms from this condition. 5. If symtoms fail to improve, could consider steroid injection Shan Mai DPM Podiatry [address] [facility] [address] Dept: [phone] Dept Patient presents with: Right Foot - Pain, Swelling Left Foot - Pain, Swelling AMB ROOMING INTAKE FLOWSHEET DATA Pain Pain Level: 2 Pain Location: Foot-Left Description: Sharp Duration Amount of Time: 1 Duration Units: Months Frequency: Intermittent Intervention/Comfort measure: Medication, Relaxation, Cold, Other: See comment (Tristen wrap) Comments: RICE Patient states about a month ago he started having pain and swelling in both feet. No specific injury, State his left foot is worse than his right. He has wrapping with an tristen wrap, elevating , rest, and will help and then his right foot will start to do the same thing. Icing does not help. Taking Aleve for the pain and helps some. At times he has been taking every [address] Green. X-rays done 12/25/23 documented in this encounter [facility] 01-15-2024 Note HNO ID: [id number] Author: NEREYDA LANDON MA Service: ? Author Type: Supervisor Policy Change Clerks Type: Progress Notes Filed: 01/15/2024 12:32 Note Text: Patient presents with: Right Foot - Pain, Swelling Left Foot - Pain, Swelling AMB ROOMING INTAKE FLOWSHEET DATA Pain Pain Level: 2 Pain Location: Foot-Left Description: Sharp Duration Amount of Time: 1 Duration Units: Months Frequency: Intermittent Intervention/Comfort measure: Medication, Relaxation, Cold, Other: See comment (Tristen wrap) Comments: RICE Patient states about a month ago he started having pain and swelling in both feet. No specific injury, State his left foot is worse than his right. He has wrapping with an tristen wrap, elevating , rest, and will help and then his right foot will start to do the same thing. Icing does not help. Taking Aleve for the pain and helps some. At times he has been taking every [address] Green. X-rays done 12/25/23 [facility] 01-15-2024 History of Presen t illness Narrative Program_ID:[id number] Access Code: [email or web address] URL: [email or web address] Date: 01-15-2024 Prepared By: Carl Masterson Program Notes Exercises - Supine Ankle Circles - 1 x daily - 7 x weekly - 5 sets - 10 reps - Supine Ankle Circles - 1 x daily - 7 x weekly - 5 sets - 10 reps - Supine Ankle Pumps - 1 x daily - 7 x weekly - 5 sets - 10 reps - Gastroc Stretch on Wall - 1 x daily - 7 x weekly - 5 sets - 1 reps - Gastroc Stretch on Wall - 1 x daily - 7 x weekly - 5 sets - 1 reps Episode Visit Count: 1 Therapist That Will Accept/Oversee The Plan Of Care: Carl Masterson PT Start of Care Date: 01/15/24 Onset Date: 12/16/23 Patient Identified by Name and Date of : Yes REHABILITATION AND SPORTS THERAPY PHYSICAL THERAPY EVALUATION PLAN OF CARE: Assessment: Celso Shine presents with chief complaint of B foot and ankle pain that interferes with stair negotiation . He presents with impairments in flexibility, gait, and independence in exercise. PROMIS (Patient-Reported Outcomes Measurement Information System) scores were reviewed and identified as a rehabilitation concern. Prognosis for therapy is Good due to: current objective clinical presentation . Low arch height and decreased flexibility of the gastrocnemius bilaterally noted. He will benefit from skilled therapy services to meet the goals established for this plan of care as noted below. Goals for Episode of Care: established 01/15/24 [place] in home exercise program. Patient will decrease pain rating by 2 points to meet minimal clinical important difference for numeric pain rating scale. Perform standing and walking for 30 minutes without pain. Improve flexibility of B gastrocs for normalized gait Normal gait. Patient Goals: Reduce the pain Time Frame for Goals and Treatment : 02/12/24 Planned Interventions, Frequency, and Duration: Current Frequency: 1x every other week Duration: 4 weeks Total Number of Visits Planned: 2 Planned Treatment Interventions: Therapeutic exercise (60550), Neuromuscular re-education (77362), Manual therapy (97039), Therapeutic activities (16205), Self-residential management (58409), Gait Training (75338), Patient/Family/Caregiver Education PLAN FOR NEXT VISIT: Calf stretching. joint mobs of both ankle joints Patient demonstrates good understanding of plan of care and treatment. The above goals and plan of care were discussed and agreed upon by patient/family. SUBJECTIVE: One foot will be painful, favor the other and then that foot hurts. Not sure what is happening. Pain at the top of the foot. No issues at night. Can have redness and swelling. The feet can feel hot. No N/T. Feels like a loss of flexibility and usage. Has to take a break after a few minutes of walking due to pain. In July he was on his feet at a whiskey tasting for 4 hours when the pain started. The next morning the foot was swollen. Patient Goals: Reduce the pain Functional Limitations: stair negotiation Prior Level of Function: Independent without limitations Intake Information: Prescription present Pain: Pain Pain Level: 2 Pain Location: Ankle - Left, Foot - Left Additional Pain Information : Location 2 Pain Level 2: 2 Pain Location 2: Foot - Right PROMIS Scales 01/14/2024 Higher is Better Phys Func - Score 36 (moderate dysfunction) Phys Func - Percentile 8 Self-Eff Symptom - Score 38 (Low) Self-Eff Symptom - Percentile 12 T-scores: mean of general population = 50. 5 points is clinically meaningfully difference Percentiles provide an indication of how the patient's score ranks in relation to the general population. Higher percentile rankings indicate better function/quality of life. 50th percentile is the average of the general population and indicates half of respondents had a worse score. OBJECTIVE MEASURES WITH LEVEL OF FUNCTION: LE AROM R Ankle Dorsiflexion: 8 Degrees (with knee straight) L Ankle Dorsiflexion: 11 Degrees (with knee straight) LE Flexibility Flexibility: Gastrocnemius Flexibility R Gastrocnemius Flexibility: Tight L Gastrocnemius Flexibility: Tight LE Strength R Ankle Dorsiflexion (L4): (with knee bent and 8 degrees with knee straight) Gait Gait Observation: Decreased heel strike. Foot overpronates causing increased pressure along medial heel bilaterally. Education: Education Learning Preferences: Demonstration, Explanation, Performance, Printed Materials Barriers: None Learning/educational needs: Home exercise program, Plan of Care, Changes in Plan of Care Education Provided: Yes, see treatment interventions for education provided Education Provided To: Patient Education Mode/Type: Demonstration, Explanation/Discussion, Literature/Printed Materials, Performance Response to Education/Teach Back: States/Identifies, Return Demonstration TREATMENT: PT Treatment Interventions: Therapeutic Exercise, Self-Intermediate Management Evaluation Therapeutic Exercise: 1: Discussed exam findings, purpose of the HEP and the HEP handout was provided to the pt. HEP discussed in detail with how to safely and properly perform each therapeutic exercise. 2: Ankle circles CW/CCW x 10 3: Ankle pumps x 10 4: Standing gastroc stretch 2 x 30 sec each leg Skilled Intervention: Patient was educated in proper exercise technique and purpose for exercises. Provided written instruction for home exercise program to facilitate proper performance and compliance. Correct performance of therapeutic exercises was facilitated with verbal and visual cuing. Billing * Evaluation Low Complexity: 1 Unit Therapeutic Exercise Treatment Minutes: 19 Self-Care/Home Management Treatment Minutes: 4 Skilled Treatment Time Minutes (timed and untimed codes): 46 Total Session Time (minutes): 46 Session Start Time : 1014 Session Stop Time : 1100 Carl Masterson PT documented in this encounter [facility] 01-15-2024 Note HNO ID: [id number] Author: CARL MASTERSON PT Service: ? Author Type: Physical Therapist Type: Progress Notes Filed: 01/15/2024 12:17 Note Text: Episode Visit Count: 1 Therapist That Will Accept/Oversee The Plan Of Care: Carl Masterson PT Start of Care Date: 01/15/24 Onset Date: 12/16/23 Patient Identified by Name and Date of : Yes REHABILITATION AND SPORTS THERAPY PHYSICAL THERAPY EVALUATION PLAN OF CARE: Assessment: Celso Shine presents with chief complaint of B foot and ankle pain that interferes with stair negotiation . He presents with impairments in flexibility, gait, and independence in exercise. PROMIS? (Patient-Reported Outcomes Measurement Information System) scores were reviewed and identified as a rehabilitation concern. Prognosis for therapy is Good due to: current objective clinical presentation . Low arch height and decreased flexibility of the gastrocnemius bilaterally noted. He will benefit from skilled therapy services to meet the goals established for this plan of care as noted below. Goals for Episode of Care: established 01/15/24 [place] in home exercise program. Patient will decrease pain rating by 2 points to meet minimal clinical important difference for numeric pain rating scale. Perform standing and walking for 30 minutes without pain. Improve flexibility of B gastrocs for normalized gait Normal gait. Patient Goals: Reduce the pain Time Frame for Goals and Treatment : 02/12/24 Planned Interventions, Frequency, and Duration: Current Frequency: 1x every other week Duration: 4 weeks Total Number of Visits Planned: 2 Planned Treatment Interventions: Therapeutic exercise (19019), Neuromuscular re-education (72860), Manual therapy (20397), Therapeutic activities (32379), Self-residential management (76726), Gait Training (30354), Patient/Family/Caregiver Education PLAN FOR NEXT VISIT: Calf stretching. joint mobs of both ankle joints Patient demonstrates good understanding of plan of care and treatment. The above goals and plan of care were discussed and agreed upon by patient/family. SUBJECTIVE: One foot will be painful, favor the other and then that foot hurts. Not sure what is happening. Pain at the top of the foot. No issues at night. Can have redness and swelling. The feet can feel hot. No N/T. Feels like a loss of flexibility and usage. Has to take a break after a few minutes of walking due to pain. In July he was on his feet at a whiskey tasting for 4 hours when the pain started. The next morning the foot was swollen. Patient Goals: Reduce the pain Functional Limitations: stair negotiation Prior Level of Function: Independent without limitations Intake Information: Prescription present Pain: Pain Pain Level: 2 Pain Location: Ankle - Left, Foot - Left Additional Pain Information : Location 2 Pain Level 2: 2 Pain Location 2: Foot - Right PROMIS Scales 01/14/2024 Higher is Better Phys Func - Score 36 (moderate dysfunction) Phys Func - Percentile 8 Self-Eff Symptom - Score 38 (Low) Self-Eff Symptom - Percentile 12 T-scores: mean of general population = 50. 5 points is clinically meaningfully difference Percentiles provide an indication of how the patient's score ranks in relation to the general population. Higher percentile rankings indicate better function/quality of life. 50th percentile is the average of the general population and indicates half of respondents had a worse score. OBJECTIVE MEASURES WITH LEVEL OF FUNCTION: LE AROM R Ankle Dorsiflexion: 8 Degrees (with knee straight) L Ankle Dorsiflexion: 11 Degrees (with knee straight) LE Flexibility Flexibility: Gastrocnemius Flexibility R Gastrocnemius Flexibility: Tight L Gastrocnemius Flexibility: Tight LE Strength R Ankle Dorsiflexion (L4): (with knee bent and 8 degrees with knee straight) Gait Gait Observation: Decreased heel strike. Foot overpronates causing increased pressure along medial heel bilaterally. Education: Education Learning Preferences: Demonstration, Explanation, Performance, Printed Materials Barriers: None Learning/educational needs: Home exercise program, Plan of Care, Changes in Plan of Care Education Provided: Yes, see treatment interventions for education provided Education Provided To: Patient Education Mode/Type: Demonstration, Explanation/Discussion, Literature/Printed Materials, Performance Response to Education/Teach Back: States/Identifies, Return Demonstration TREATMENT: PT Treatment Interventions: Therapeutic Exercise, Self-Intermediate Management Evaluation Therapeutic Exercise: 1: Discussed exam findings, purpose of the HEP and the HEP handout was provided to the pt. HEP discussed in detail with how to safely and properly perform each therapeutic exercise. 2: Ankle circles CW/CCW x 10 3: Ankle pumps x 10 4: Standing gastroc stretch 2 x 30 sec each leg Skilled Intervention: Patient (more content not included)... [facility] 12-25-2023 History of Presen t illness Narrative Radiology Service Progress Note PATIENT NAME: Celso Shine DATE OF SERVICE: December 25, 2023 TIME: 10:46 AM PATIENT IDENTITY VERIFICATION COMPLETED USING TWO (2) IDENTIFIERS: Name and Date of confirmed by patient verbally. FALL SCREENING: Has the patient had 2 falls in the last year or 1 fall with injury or currently using an Ambulatory Assistive Device (Walker, Cane, Wheelchair, Crutches, etc.)? No PATIENT GENDER DATA: Male PATIENT RELEVANT IMPLANT DATA REVIEWED: Not Applicable PATIENT PRESENTS WITH AN IMPLANTABLE OR ATTACHED PATCHER BOWLING BALL: No RADIOLOGY DEPARTMENT: General X-ray: Exam(s) Completed: Lower Extremity X-Ray(s): Ankle, Right and Wt. Bearing and Foot, Right and Wt. Bearing PERIPHERAL IV DATA: Not applicable SIGNED BY: RT Ana(R) December 25, 2023 10:46 AM documented in this encounter [facility] 12-25-2023 Note HNO ID: [id number] Author: MONIK DENT RT(R) Service: ? Author Type: Technologist Type: Progress Notes Filed: 12/25/2023 10:46 Note Text: Radiology Service Progress Note PATIENT NAME: Celso Shine DATE OF SERVICE: December 25, 2023 TIME: 10:46 AM PATIENT IDENTITY VERIFICATION COMPLETED USING TWO (2) IDENTIFIERS: Name and Date of confirmed by patient verbally. FALL SCREENING: Has the patient had 2 falls in the last year or 1 fall with injury or currently using an Ambulatory Assistive Device (Walker, Cane, Wheelchair, Crutches, etc.)? No PATIENT GENDER DATA: Male PATIENT RELEVANT IMPLANT DATA REVIEWED: Not Applicable PATIENT PRESENTS WITH AN IMPLANTABLE OR ATTACHED PATCHER BOWLING BALL: No RADIOLOGY DEPARTMENT: General X-ray: Exam(s) Completed: Lower Extremity X-Ray(s): Ankle, Right and Wt. Bearing and Foot, Right and Wt. Bearing PERIPHERAL IV DATA: Not applicable SIGNED BY: RT Ana(R) December 25, 2023 10:46 AM [facility] 12-25-2023 History of Presen t illness Narrative Chief Complaint Patient presents with: Foot Pain (Midfoot) HPI Celso Shine is a 43 year old male who presents here today for an acute visit. Pt here today with c/o of right foot pain that is similar to the left foot pain he previously experienced. Was previously seen back in July 2023 for left ankle pain and swelling, that was red and hot to touch. He was tested for gout, and uric acid level was normal. Treated with prednisone, which minimally helped. Started about 1 month ago. Pain located in his top midfoot area and radiating to his lateral ankle. Notes that he has pain up into his calf, described as tightness. Does note the ankle swelling and pain has improved since he made his appt. Still having top midfoot pain and swelling, hard to get into a shoe. Notes some erythema that is localized. Everything at this time seems similar to the pain he was experiencing in his left foot other than the calf tightness. Has been using Aleve for pain. Pain at times is a 5/10, when at rest or not on it a 2-3/10. Pain described at times as a sharp, throbbing, tenderness and stabbing. Nothing seems to make it better or worse. Past medical history, appointments, medications, allergies reviewed. Previous Medical History PAST MEDICAL HISTORY No date: Abdominal pain, other specified site No date: Allergic rhinitis due to other allergen No date: Unspecified essential hypertension Previous Surgical History PAST SURGICAL HISTORY 01/11/2012: COLONOSCOPY FLX DX W/COLLJ SPEC WHEN PFRMD Comment: Colonoscopy 2000: PALATE/UVULA SURGERY UNLISTED Comment: Somnoplasty 2000: PAST SURGICAL HISTORY OF Comment: wisdom teeth 2001: RHINP PRIM LAT&ALAR CRTLGS&/ELVTN NASAL TI Comment: Rhinoplasty Family History FAMILY HISTORY Problem Relation Age of Onset Heart Father First [place] age 45, Coronary Artery Disease Father 45 Lipids Father Stroke Maternal Grandmother Coronary Artery Disease Maternal Grandfather Colon Cancer Maternal Grandfather Coronary Artery Disease Paternal Grandfather MO x 4, not sure age of first MO Patient Allergies ALLERGIES Allergen Reactions Codeine purple spots apprea on skin Ibuprofen Swelling Current Medications Current Outpatient Medications on File Prior to Visit Medication Sig PULMICORT FLEXHALER 180 mcg/actuation aepb INHALE 2 PUFFS BY MOUTH ONCE DAILY WITH GOOD ORAL CARE albuterol HFA (PROVENTIL HFA, VENTOLIN HFA) 90 mcg/actuation inhaler INHALE 2 PUFFS BY MOUTH 4 TIMES DAILY NEEDED FOR SHORTNESS OF BREATH OR WHEEZING OR COUGH BIPAP Initiate BiPAP @ 9 and 13 cm of water with humidification. Mask (per patient preference) optional chin strap (if indicated) , filters, tubing, humidifier and lifetime supplies. loratadine (CLARITIN) 10 mg tablet Take 10 mg by mouth once daily. fluticasone (FLONASE) 50 mcg/actuation nasal spray Use 1 [place] in each nostril twice daily at 6AM and 9PM. Rinse mouth after use. No current facility-administered medications on file prior to visit. Social History Social History Tobacco Use Smoking status: Never Smokeless tobacco: Never Vaping Use Vaping status: Never Used Substance Use Topics Alcohol use: Yes Comment: occ Drug use: No EXAM: BP 118/84 (BP Site: Right Arm, BP Position: Sitting, BP Cuff Size: Large Adult) Pulse 68 Resp 18 Wt (!) 140.7 kg (310 lb 3 oz) BMI 40.92 kg/m General Appearance: Well appearing, alert, in no acute distress, well-hydrated, well nourished. and Obese. Feet: right: tanderness lateral proximal midfoot and lateral ankle; pain with flexion of ankel.. Health Maintenance List BP Controlled (<130/80) Never done Influenza Vaccine(1) due on 12/23/2023 Annual PCP Team Chronic Disease Visit due on 08/15/2024 Depression Screening due on 08/15/2024 Anxiety Screening due on 08/15/2024 DTaP,Tdap,Td Vaccine(3 - Td or Tdap) due on 03/07/2027 Lipid Screening due on 02/23/2028 Hepatitis C Screening Completed HIV Screening Completed Covid-19 Vaccine Completed HPV Vaccine Aged Out Data reviewed None ASSESSMENT/PLAN: 1. Foot and ankle pain - ICD9: 729.5, 719.47, ICD10: M79.673, M25.579 - CONSULT TO PODIATRY - CONSULT TO PHYSICAL THERAPY - XR FOOT GENERAL 3V AP/LAT/OBL RIGHT - XR ANKLE GENERAL 3V AP/LAT/OBL RIGHT Continue prn alleve for pain Follow up prn Medical Decision Making: Problems: Low: Acute, uncomplicated illness or injury Data: Unique test result(s) reviewed: 1 Risk: Low: Low risk from testing/treatment Medical Decision Making Level: 3 - Low Sanchez Green MD documented in this encounter [facility] 12-25-2023 Note HNO ID: [id number] Author: SANCHEZ GREEN MD Service: ? Author Type: Physician Type: Progress Notes Filed: 12/25/2023 11:07 Note Text: Chief Complaint Patient presents with: Foot Pain (Midfoot) HPI Celso hSine is a 43 year old male who presents here today for an acute visit. Pt here today with c/o of right foot pain that is similar to the left foot pain he previously experienced. Was previously seen back in July 2023 for left ankle pain and swelling, that was red and hot to touch. He was tested for gout, and uric acid level was normal. Treated with prednisone, which minimally helped. Started about 1 month ago. Pain located in his top midfoot area and radiating to his lateral ankle. Notes that he has pain up into his calf, described as tightness. Does note the ankle swelling and pain has improved since he made his appt. Still having top midfoot pain and swelling, hard to get into a shoe. Notes some erythema that is localized. Everything at this time seems similar to the pain he was experiencing in his left foot other than the calf tightness. Has been using Aleve for pain. Pain at times is a 5/10, when at rest or not on it a 2-3/10. Pain described at times as a sharp, throbbing, tenderness and stabbing. Nothing seems to make it better or worse. Past medical history, appointments, medications, allergies reviewed. Previous Medical History PAST MEDICAL HISTORY No date: Abdominal pain, other specified site No date: Allergic rhinitis due to other allergen No date: Unspecified essential hypertension Previous Surgical History PAST SURGICAL HISTORY 01/11/2012: COLONOSCOPY FLX DX W/COLLJ SPEC WHEN PFRMD Comment: Colonoscopy 2000: PALATE/UVULA SURGERY UNLISTED Comment: Somnoplasty 2001: PAST SURGICAL HISTORY OF Comment: wisdom teeth 2001: RHINP PRIM LATANDALAR CRTLGSAND/ELVTN NASAL TI Comment: Rhinoplasty Family History FAMILY HISTORY Problem Relation Age of Onset Heart Father First [place] age 45, Coronary Artery Disease Father 45 Lipids Father Stroke Maternal Grandmother Coronary Artery Disease Maternal Grandfather Colon Cancer Maternal Grandfather Coronary Artery Disease Paternal Grandfather [place] x 4, not sure age of first [place] Patient Allergies ALLERGIES Allergen Reactions Codeine purple spots apprea on skin Ibuprofen Swelling Current Medications Current Outpatient Medications on File Prior to Visit Medication Sig PULMICORT FLEXHALER 180 mcg/actuation aepb INHALE 2 PUFFS BY MOUTH ONCE DAILY WITH GOOD ORAL CARE albuterol HFA (PROVENTIL HFA, VENTOLIN HFA) 90 mcg/actuation inhaler INHALE 2 PUFFS BY MOUTH 4 TIMES DAILY NEEDED FOR SHORTNESS OF BREATH OR WHEEZING OR COUGH BIPAP Initiate BiPAP @ 9 and 13 cm of water with humidification. Mask (per patient preference) optional chin strap (if indicated) , filters, tubing, humidifier and lifetime supplies. loratadine (CLARITIN) 10 mg tablet Take 10 mg by mouth once daily. fluticasone (FLONASE) 50 mcg/actuation nasal spray Use 1 [place] in each nostril twice daily at 6AM and 9PM. Rinse mouth after use. No current facility-administered medications on file prior to visit. Social History Social History Tobacco Use Smoking status: Never Smokeless tobacco: Never Vaping Use Vaping status: Never Used Substance Use Topics Alcohol use: Yes Comment: occ Drug use: No EXAM: BP 118/84 (BP Site: Right Arm, BP Position: Sitting, BP Cuff Size: Large Adult) Pulse 68 Resp 18 Wt (!) 140.7 kg (310 lb 3 oz) BMI 40.92 kg/m? General Appearance: Well appearing, alert, in no acute distress, well-hydrated, well nourished. and Obese. Feet: right: tanderness lateral proximal midfoot and lateral ankle; pain with flexion of ankel.. Health Maintenance List BP Controlled (<130/80) Never done Influenza Vaccine(1) due on 12/23/2023 Annual PCP Team Chronic Disease Visit due on 08/15/2024 Depression Screening due on 08/15/2024 Anxiety Screening due on 08/15/2024 DTaP,Tdap,Td Vaccine(3 - Td or Tdap) due on 03/07/2027 Lipid Screening due on 02/23/2028 Hepatitis C Screening Completed HIV Screening Completed Covid-19 Vaccine Completed HPV Vaccine Aged Out Data reviewed None ASSESSMENT/PLAN: 1. Foot and ankle pain - ICD9: 729.5, 719.47, ICD10: M79.673, M25.579 - CONSULT TO PODIATRY - CONSULT TO PHYSICAL THERAPY - XR FOOT GENERAL 3V AP/LAT/OBL RIGHT - XR ANKLE GENERAL 3V AP/LAT/OBL RIGHT Continue prn alleve for pain Follow up prn Medical Decision Making: Problems: Low: Acute, uncomplicated illness or injury Data: Unique test result(s) reviewed: 1 Risk: Low: Low risk from testing/treatment Medical Decision Making Level: 3 - Low Sanchez Green MD [facility] 08-16-2023 History of Presen t illness Narrative Radiology Service Progress Note PATIENT NAME: Celso Shine DATE OF SERVICE: August 16, 2023 TIME: 11:10 AM PATIENT IDENTITY VERIFICATION COMPLETED USING TWO (2) IDENTIFIERS: Name and Date of confirmed by patient verbally. FALL SCREENING: Has the patient had 2 falls in the last year or 1 fall with injury or currently using an Ambulatory Assistive Device (Walker, Cane, Wheelchair, Crutches, etc.)? No PATIENT GENDER DATA: Male PATIENT RELEVANT IMPLANT DATA REVIEWED: Not Applicable PATIENT PRESENTS WITH AN IMPLANTABLE OR ATTACHED PATCHER BOWLING BALL: No RADIOLOGY DEPARTMENT: General X-ray: Exam(s) Completed: Lower Extremity X-Ray(s): Ankle, Left and Wt. Bearing PERIPHERAL IV DATA: Not applicable SIGNED BY: JENNY Fajardo) August 16, 2023 11:10 AM documented in this encounter [facility] 08-16-2023 Note HNO ID: [id number] Author: GRICELDA CUEVA RT(R) Service: Radiology Author Type: Technologist Type: Progress Notes Filed: 08/16/2023 11:20 Note Text: Radiology Service Progress Note PATIENT NAME: Celso Shine DATE OF SERVICE: August 16, 2023 TIME: 11:10 AM PATIENT IDENTITY VERIFICATION COMPLETED USING TWO (2) IDENTIFIERS: Name and Date of confirmed by patient verbally. FALL SCREENING: Has the patient had 2 falls in the last year or 1 fall with injury or currently using an Ambulatory Assistive Device (Walker, Cane, Wheelchair, Crutches, etc.)? No PATIENT GENDER DATA: Male PATIENT RELEVANT IMPLANT DATA REVIEWED: Not Applicable PATIENT PRESENTS WITH AN IMPLANTABLE OR ATTACHED PATCHER BOWLING BALL: No RADIOLOGY DEPARTMENT: General X-ray: Exam(s) Completed: Lower Extremity X-Ray(s): Ankle, Left and Wt. Bearing PERIPHERAL IV DATA: Not applicable SIGNED BY: RT Tana(R) August 16, 2023 11:10 AM [facility] 08-16-2023 Note HNO ID: [id number] Author: SANCHEZ GREEN MD Service: ? Author Type: Physician Type: Progress Notes Filed: 08/16/2023 10:46 Note Text: Chief Complaint Patient presents with: Ankle Pain: Left ankle Edema: Feet, lissette HPI Celso Shine is a 43 year old male who presents here today for Above Complaints.. Pt here for lissette foot swelling and left ankle pain. Pt stated he has left ankle pain that he woke up with 2 weeks ago, was swollen, red and hot to touch, unable to bare weight, using a cane. No injury to the ankle or feet. Father has gout. Pt denies every having any gout issues. He has been taking 1300 mg Tylenol TID, compression and ice, has used a walking boot but that can cause more pain. Elevated foot a night. Been having issues with lissette foot swelling x 2 weeks as well. Unable to keep feet elevated during the day while working but elevates at night and swelling will improve by morning. Starts to swell up again through the day. Vitamin D deficiency: Taking Vitamin D3 5,000 international unit(s) daily. Depression screening for HM reviewed, pt denies feeling depressed, hopeless, anxious, etc. Past medical history, appointments, medications, allergies reviewed. Previous Medical History PAST MEDICAL HISTORY Diagnosis Date Abdominal pain, other specified site Allergic rhinitis due to other allergen Unspecified essential hypertension Previous Surgical History PAST SURGICAL HISTORY Procedure Laterality Date COLONOSCOPY FLX DX W/COLLJ SPEC WHEN PFRMD 01/11/2012 Colonoscopy PALATE/UVULA SURGERY UNLISTED 2000 Somnoplasty PAST SURGICAL HISTORY OF 2000 wisdom teeth RHINP PRIM LATANDALAR CRTLGSAND/ELVTN NASAL TI 2000 Rhinoplasty Family History FAMILY HISTORY Problem Relation Age of Onset Heart Father First MO age 45, Coronary Artery Disease Father 45 Lipids Father Stroke Maternal Grandmother Coronary Artery Disease Maternal Grandfather Colon Cancer Maternal Grandfather Coronary Artery Disease Paternal Grandfather MO x 4, not sure age of first MO Patient Allergies ALLERGIES Allergen Reactions Codeine purple spots apprea on skin Ibuprofen Swelling Current Medications Current Outpatient Medications on File Prior to Visit Medication Sig BIPAP Initiate BiPAP @ 8 and 12 cm of water with humidification. Mask (per patient preference) optional chin strap (if indicated) , filters, tubing, humidifier and lifetime supplies. benzonatate (TESSALON PERLES) 100 mg capsule Take 1 capsule by mouth three times a day as needed for cough. loratadine (CLARITIN) 10 mg tablet Take 10 mg by mouth once daily. fluticasone (FLONASE) 50 mcg/actuation nasal spray Use 1 [place] in each nostril twice daily at 6AM and 9PM. Rinse mouth after use. No current facility-administered medications on file prior to visit. Social History Social History Tobacco Use Smoking status: Never Smokeless tobacco: Never Vaping Use Vaping Use: Never used Substance Use Topics Alcohol use: Yes Comment: occ Drug use: No EXAM: BP 140/80 Pulse 84 Resp 18 Wt (!) 141.5 kg (312 lb) BMI 41.16 kg/m? General Appearance: Well appearing, alert, in no acute distress, well-hydrated, well nourished. and Obese. Extremities: left ankle; pain on palpation diffusely, pain with rotation back and forth, mild joint swelling, warm. NO MTP joint tenderness. Right ankle normal. Health Maintenance List BP Controlled (<130/80) Never done Behavioral Health Screening Never done Annual PCP Team Chronic Disease Visit due on 05/04/2024 DTaP,Tdap,Td Vaccine(3 - Td or Tdap) due on 03/07/2027 Lipid Screening due on 02/23/2028 Influenza Vaccine Completed Hepatitis C Screening Completed HIV Screening Completed Covid-19 Vaccine Completed HPV Vaccine Aged Out Data reviewed None ASSESSMENT/PLAN: 1. Acute left ankle pain - ICD9: 719.47, ICD10: M25.572 Concern for gout XR left ankle Check Uric Acid, BMP, CBC level today Medrol Dose pack sent to pharmacy; allergy to ibuprofen 2. Vitamin D deficiency - ICD9: 268.9, ICD10: E55.9 Check labs Follow up as scheduled or if not improving. Notify of Xray and lab results I agree with the Chief Complaint, ROS, and Past Histories independently gathered by the clinical customer support representative and the remaining scribed note accurately describes my personal service to the patient. Medical Decision Making: Problems: Moderate: New problem with uncertain prognosis Data: Unique test(s) ordered: 3+ Risk: Moderate: Drug management Medical Decision Making Level: 4 - Moderate Sanchez Green MD The documentation for this note was completed by Kendy Moulton MA acting as scribe for Sanchez Green MD. August 16, 2023 10:18 AM. Kendy Moulton MA [facility] 08-16-2023 History of Presen t illness Narrative Chief Complaint Patient presents with: Ankle Pain: Left ankle Edema: Feet, lissette HPI Celso Shine is a 43 year old male who presents here today for Above Complaints.. Pt here for lissette foot swelling and left ankle pain. Pt stated he has left ankle pain that he woke up with 2 weeks ago, was swollen, red and hot to touch, unable to bare weight, using a cane. No injury to the ankle or feet. Father has gout. Pt denies every having any gout issues. He has been taking 1300 mg Tylenol TID, compression and ice, has used a walking boot but that can cause more pain. Elevated foot a night. Been having issues with lissette foot swelling x 2 weeks as well. Unable to keep feet elevated during the day while working but elevates at night and swelling will improve by morning. Starts to swell up again through the day. Vitamin D deficiency: Taking Vitamin D3 5,000 international unit(s) daily. Depression screening for HM reviewed, pt denies feeling depressed, hopeless, anxious, etc. Past medical history, appointments, medications, allergies reviewed. Previous Medical History PAST MEDICAL HISTORY Diagnosis Date Abdominal pain, other specified site Allergic rhinitis due to other allergen Unspecified essential hypertension Previous Surgical History PAST SURGICAL HISTORY Procedure Laterality Date COLONOSCOPY FLX DX W/COLLJ SPEC WHEN PFRMD 01/11/2012 Colonoscopy PALATE/UVULA SURGERY UNLISTED 2000 Somnoplasty PAST SURGICAL HISTORY OF 2000 wisdom teeth RHINP PRIM LAT&ALAR CRTLGS&/ELVTN NASAL TI 2000 Rhinoplasty Family History FAMILY HISTORY Problem Relation Age of Onset Heart Father First MO age 45, Coronary Artery Disease Father 45 Lipids Father Stroke Maternal Grandmother Coronary Artery Disease Maternal Grandfather Colon Cancer Maternal Grandfather Coronary Artery Disease Paternal Grandfather MO x 4, not sure age of first MO Patient Allergies ALLERGIES Allergen Reactions Codeine purple spots apprea on skin Ibuprofen Swelling Current Medications Current Outpatient Medications on File Prior to Visit Medication Sig BIPAP Initiate BiPAP @ 8 and 12 cm of water with humidification. Mask (per patient preference) optional chin strap (if indicated) , filters, tubing, humidifier and lifetime supplies. benzonatate (TESSALON PERLES) 100 mg capsule Take 1 capsule by mouth three times a day as needed for cough. loratadine (CLARITIN) 10 mg tablet Take 10 mg by mouth once daily. fluticasone (FLONASE) 50 mcg/actuation nasal spray Use 1 [place] in each nostril twice daily at 6AM and 9PM. Rinse mouth after use. No current facility-administered medications on file prior to visit. Social History Social History Tobacco Use Smoking status: Never Smokeless tobacco: Never Vaping Use Vaping Use: Never used Substance Use Topics Alcohol use: Yes Comment: occ Drug use: No EXAM: BP 140/80 Pulse 84 Resp 18 Wt (!) 141.5 kg (312 lb) BMI 41.16 kg/m General Appearance: Well appearing, alert, in no acute distress, well-hydrated, well nourished. and Obese. Extremities: left ankle; pain on palpation diffusely, pain with rotation back and forth, mild joint swelling, warm. NO MTP joint tenderness. Right ankle normal. Health Maintenance List BP Controlled (<130/80) Never done Behavioral Health Screening Never done Annual PCP Team Chronic Disease Visit due on 05/04/2024 DTaP,Tdap,Td Vaccine(3 - Td or Tdap) due on 03/07/2027 Lipid Screening due on 02/23/2028 Influenza Vaccine Completed Hepatitis C Screening Completed HIV Screening Completed Covid-19 Vaccine Completed HPV Vaccine Aged Out Data reviewed None ASSESSMENT/PLAN: 1. Acute left ankle pain - ICD9: 719.47, ICD10: M25.572 Concern for gout XR left ankle Check Uric Acid, BMP, CBC level today Medrol Dose pack sent to pharmacy; allergy to ibuprofen 2. Vitamin D deficiency - ICD9: 268.9, ICD10: E55.9 Check labs Follow up as scheduled or if not improving. Notify of Xray and lab results I agree with the Chief Complaint, ROS, and Past Histories independently gathered by the clinical customer support representative and the remaining scribed note accurately describes my personal service to the patient. Medical Decision Making: Problems: Moderate: New problem with uncertain prognosis Data: Unique test(s) ordered: 3+ Risk: Moderate: Drug management Medical Decision Making Level: 4 - Moderate Sanchez Green MD The documentation for this note was completed by Kendy Moulton MA acting as scribe for Sanchez Green MD. August 16, 2023 10:18 AM. Kendy Moulton MA documented in this encounter [facility] 05-04-2023 Note HNO ID: [id number] Author: SANCHEZ GREEN MD Service: ? Author Type: Physician Type: Progress Notes Filed: 05/04/2023 14:58 Note Text: Chief Complaint Patient presents with: URI: cough HPI Celso Shine is a 42 year old male who presents here today for cold sx. Pt stated he has a cough with phlegm, drainage in the back of the throat, nasal congestion, some wheezing and SOB, slight headache that started on 04/25/23. Had sore throat when this first started that resolved within 2 days. No fevers, no ear, no sinus pressure. Had one bout of diarrhea 4 days ago but nothing before or after. He was around someone who had COVID on . Tested 4 times in the last 9 days, all negative. Has been using Dayquil and Nyquil which are not helping much. Cough is worse when laying down. Has not had any loss of smell or taste, no fatigue. He does not think he is getting any worse but is not getting any better. Checking O2 levels at home which have been ok. He had COVID in the past back in 2020, he was not ill with any sx, but took him 11 days post exposure to finally test positive for COVID. Past medical history, appointments, medications, allergies reviewed. Previous Medical History PAST MEDICAL HISTORY Diagnosis Date Abdominal pain, other specified site Allergic rhinitis due to other allergen Unspecified essential hypertension Previous Surgical History PAST SURGICAL HISTORY Procedure Laterality Date COLONOSCOPY FLX DX W/COLLJ SPEC WHEN PFRMD 01/11/2012 Colonoscopy PALATE/UVULA SURGERY UNLISTED 2000 Somnoplasty PAST SURGICAL HISTORY OF 2000 wisdom teeth RHINP PRIM LATANDALAR CRTLGSAND/ELVTN NASAL TI 2001 Rhinoplasty Family History FAMILY HISTORY Problem Relation Age of Onset Heart Father First MO age 45, Coronary Artery Disease Father 45 Lipids Father Stroke Maternal Grandmother Coronary Artery Disease Maternal Grandfather Colon Cancer Maternal Grandfather Coronary Artery Disease Paternal Grandfather MO x 4, not sure age of first MO Patient Allergies ALLERGIES Allergen Reactions Codeine purple spots apprea on skin Ibuprofen Swelling Current Medications Current Outpatient Medications on File Prior to Visit Medication Sig BIPAP Initiate BiPAP @ 7 and 11 cm of water with humidification. Mask (per patient preference) optional chin strap (if indicated) , filters, tubing, humidifier and lifetime supplies. loratadine (CLARITIN) 10 mg tablet Take 10 mg by mouth once daily. fluticasone (FLONASE) 50 mcg/actuation nasal spray Use 1 [place] in each nostril twice daily at 6AM and 9PM. Rinse mouth after use. No current facility-administered medications on file prior to visit. Social History Social History Tobacco Use Smoking status: Never Smokeless tobacco: Never Vaping Use Vaping Use: Never used Substance Use Topics Alcohol use: Yes Comment: occ Drug use: No EXAM: BP 138/88 Pulse 68 Resp 20 Wt (!) 142.7 kg (314 lb 9.6 oz) SpO2 99% BMI 41.51 kg/m? General Appearance: Well appearing, alert, in no acute distress, well-hydrated, well nourished. and Morbidly obese. Lungs: Lungs clear to auscultation. No wheezing, rhonchi, rales.. Heart: RRR without murmur, gallop, or rubs. No ectopy. Health Maintenance List Depression Assessment due on 04/23/2023 Annual PCP Team Chronic Disease Visit due on 02/23/2024 BP Controlled (<130/80) due on 02/23/2024 DTaP,Tdap,Td Vaccine(3 - Td or Tdap) due on 03/07/2027 Lipid Screening due on 02/23/2028 Influenza Vaccine Completed Hepatitis C Screening Completed HIV Screening Completed Covid-19 Vaccine Completed HPV Vaccine Aged Out Data reviewed None ASSESSMENT/PLAN: 1. Bronchitis - ICD9: 490, ICD10: J40 Stef muhammad #30 Start Doxycycline 100 mg 1 pill BID x 10 days Follow up as needed or if sx do not improve. I agree with the Chief Complaint, ROS, and Past Histories independently gathered by the clinical customer support representative and the remaining scribed note accurately describes my personal service to the patient. Medical Decision Making: Problems: Low: Acute, uncomplicated illness or injury Risk: Moderate: Drug management Medical Decision Making Level: 3 - Low Sanchez Green MD The documentation for this note was completed by Kendy Moulton Ma acting as scribe for Sanchez Green MD. May 04, 2023 2:37 PM. Kendy Moulton Ma [facility] 05-22-2022 History of Presen t illness Narrative RADIOLOGY SERVICE PROGRESS NOTE SERVICE DATE: 05/22/2022 SERVICE TIME: 07:10 AM PATIENT IDENTITY VERIFICATION COMPLETED USING TWO (2) STANDARD IDENTIFIERS: Name and Date of confirmed by patient verbally FALL SCREENING: Has the patient had 2 falls in the last year or 1 fall with injury or currently using an Ambulatory Assistive Device (Walker, Cane, Wheelchair, Crutches, etc.)? No PATIENT GENDER DATA: .male ALLERGIES: Reviewed and unchanged MEDICATIONS REVIEWED: No PATIENT RELEVANT IMPLANT DATA REVIEWED: Not Applicable CREATININE: Creatinine Date Value Ref Range Status 02/07/2022 0.92 0.73 - 1.22 mg/dL Final 12/24/2020 0.92 0.73 - 1.22 mg/dL Final 03/02/2020 0.85 0.73 - 1.22 mg/dL Final Estimated Glomerular Filtration Rate Date Value Ref Range Status 02/07/2022 107 >=60 mL/min/1.73m Final Comment: Estimated Glomerular Filtration Rate (eGFR) is calculated using the 2020 CKD-EPI creatinine equation. This equation utilizes serum creatinine, sex, and age as parameters. The creatinine assay has traceable calibration to isotope dilution-mass spectrometry. Refer to KDIGO guidelines for clinical interpretation. In patients with unstable renal function, e.g. those with acute kidney injury, the eGFR may not accurately reflect actual GFR. eGFR- Date Value Ref Range Status 12/24/2020 >60 Final P.O.C.T. RESULTS: N/A May 22, [address] PERFORMED: No IV SITE: Ambulatory: A peripheral IV was started in the Right forearm with a Angio cath: 22 gauge. POST EXAM PIV STATUS: Discontinued PROCEDURE TYPE: NM Stress: 15.4 mCi [id number] was administered IV for Rest Imaging at 07:24 by LILLIANA Dominguez. 47 mCi [id number] was administered IV for Stress Imaging at 08:49 by LILLIANA Dominguez. ADMINISTRATION TIME: PATIENT DISCHARGED TO: Ambulatory patient, left NM department area. A Diagnostic radioactive procedure has taken place, with no further precautions necessary other than routine body substance precautions. More information regarding radiation safety can be found using this link: [email or web address] SIGNATURE: LILLIANA Dominguez PATIENT NAME: Celso Shine DATE: May 22, 2022 TIME: 10:15 AM PAGER/CONTACT #: documented in this encounter [facility] 02-07-2022 History of Presen t illness Narrative Chief Complaint Patient presents with: Physical Immunizations: Flu vaccination HPI Celso Shine is a 41 year old male who presents here today for a Wellness Exam. Pt here today for routine Wellness visit. Pt last seen 12/24/20. He has a new girlfriend. She does not live in [place]. Had COVID last year Dec 2020. Recovered fine, just had fever and fatigue from illness. Denies any stomach, bowel or urinary issues. He has issues with keeping an erection when he changes position during sex. He does not feel that he needs to use ED medications at this time, he would prefer to see what the stress test results show before starting any new meds. Admits to having some issues with hard BM with fresh blood in the stool and dripping into the toilet, has been happening since he was 16 years old. Tries to get enough fiber in diet to keep bowels soft. Denies any chest pain, sob or dizziness. Currently on no cardiac medications. He states if he will get rapid heart rate and chest pains with one 20 oz diet pop. The sx will last a few hours. He has stopped drinking caffeine to avoid sx. He tries to keep the heart rate while exercising between 125-154, if it goes over that he gets chest pains that goes into the left shoulder. Will resolve once heart rate comes done. He does not get any SOB, dizziness, or nausea. Father had quadruple bypass in his 40's. He had stress test but was inconclusive due to pt not being able to run fast enough. He does get some heartburn sx with burping up some nasty tasting phlegm at times but nothing severe. Has followed with a Wellness Program in the past at [facility]. He was doing more exercise about a year ago at [facility], doing exercise and diet plans. He states he met his girlfriend and has decreased the amount of exercise he was doing as well as from his shoulder and knee pains. He was exercising daily but has decreased to a few times per week. He was doing box jumps before his knee injury. He went hiking over the weekend, he was not winded but he did feel out of shape more than when he was working out regularly. He has a beer with friends on Sun and 2 glasses of wine a few days a week. Derm: has some pimple like sores that will pop and seep around the groin and above the penis. Seems to be around the skin folds. He does not have any sores at this time, just some scaring from previous sores. He has started showering 2 x per day, before work and after workouts. He states that has seemed to help it significantly. Vitamin D: Hx of deficiency, takes 1,000 international unit(s) daily of Vitamin D3. BARRIE: Doing well with use of BiPAP, using it every night. Shoulder: Still has continued pain with right shoulder, started 2-3 weeks ago. He tweaked it getting out of bed on morning. He has not used any heat or ice. He denies any limited ROM in shoulder, some clicking with movement, limited ROM turning neck to the right. Knee: left. Was doing squats with weights in October and his knee slide towards the outside, had pain in the knee and back of knee. Had MRI, saw [facility] and was suppose to do PT but has not done that yet. He noticed some bruising to the knee yesterday when working out. No new swelling to the knee since injury in October. Past medical history, appointments, medications, allergies reviewed. Previous Medical History PAST MEDICAL HISTORY Diagnosis Date Abdominal pain, other specified site Allergic rhinitis due to other allergen Unspecified essential hypertension Previous Surgical History PAST SURGICAL HISTORY Procedure Laterality Date COLONOSCOPY FLX DX W/COLLJ SPEC WHEN PFRMD 01/11/2012 Colonoscopy PALATE/UVULA SURGERY UNLISTED 2000 Somnoplasty PAST SURGICAL HISTORY OF 2000 wisdom teeth RHINP PRIM LAT&ALAR CRTLGS&/ELVTN NASAL TI 2000 Rhinoplasty Family History FAMILY HISTORY Problem Relation Age of Onset Heart Father First MO age 45, Coronary Artery Disease Father 45 Lipids Father Stroke Maternal Grandmother Coronary Artery Disease Maternal Grandfather Colon Cancer Maternal Grandfather Coronary Artery Disease Paternal Grandfather MO x 4, not sure age of first MO Patient Allergies ALLERGIES Allergen Reactions Codeine purple spots apprea on skin Ibuprofen Swelling Current Medications Current Outpatient Medications on File Prior to Visit Medication Sig loratadine (CLARITIN) 10 mg tablet Take 10 mg by mouth once daily. BIPAP Initiate BiPAP @ cm of water with humidification. Mask (per patient preference) optional chin strap (if indicated) , filters, tubing, humidifier and lifetime supplies. Pressure at 10 and 6 fluticasone (FLONASE) 50 mcg/actuation nasal spray Use 1 [place] in each nostril twice daily at 6AM and 9PM. Rinse mouth after use. No current facility-administered medications on file prior to visit. Social History Social History Tobacco Use Smoking status: Never Smokeless tobacco: Never Vaping Use Vaping Use: Never used Substance Use Topics Alcohol use: No Drug use: No EXAM: BP 122/78 Pulse 74 Resp 18 Ht 185.4 cm (6' 1) Wt 132.5 kg (292 lb 3.2 oz) BMI 38.55 kg/m General Appearance: Well appearing, alert, in no acute distress, well-hydrated, well nourished. and Obese. Lungs: Lungs clear to auscultation. No wheezing, rhonchi, rales.. Heart: RRR without murmur, gallop, or rubs. No ectopy. Abdomen: Normal abdominal exam, Abdomen soft, non-tender. Bowel sounds normal. No masses, organomegaly. Extremities: right shoulder; muscle tenderness on palpation, more along the shoulder blade, good ROM. Health Maintenance List HIV SCREENING Never done BP CONTROLLED (<130/80) Never done COVID-19 VACCINE(3 - Booster for Moderna series) due on 10/07/2020 DEPRESSION ASSESSMENT Never done INFLUENZA(1) due on 12/22/2021 ANNUAL PCP TEAM CHRONIC DISEASE VISIT due on 12/24/2021 LIPID SCREEN due on 12/24/2025 DTAP,TDAP,TD(3 - Td or Tdap) due on 03/07/2027 HEPATITIS C SCREENING Completed Data reviewed None ASSESSMENT/PLAN: 1. Wellness examination - ICD9: V70.0, ICD10: Z00.00 (primary diagnosis) - Counseled on healthy diet and regular exercise - Discussed need for and benefit of weight loss. BMI 38.55 kg/(m^2) - Depression screening tool completed and reviewed with patient. Based on score and interview, patient is not at risk for depression and recommended no further intervention at this time. - Follow up for annual exam in one year 2. Need for influenza vaccination - ICD9: V04.81, ICD10: Z23 - INFLUENZA VACCINE QUADRIVALENT 6 MO - 64 YRS IM 3. Need for COVID-19 vaccine - ICD9: V04.89, ICD10: Z23 - [employer] COVID-19 BIVALENT BOOSTER VACCINE, AGE 12+ YR 4. Elevated blood pressure reading without diagnosis of hypertension - ICD9: 796.2, ICD10: R03.0 - Encouraged dietary sodium restriction/DASH diet - Recommended regular aerobic exercise. - Recommend home blood pressure monitoring, to bring results in on next visit - Encouraged avoidance of excessive alcohol intake - Discussed need and benefit for weight loss. - Goal of BP <130/80 5. BARRIE (obstructive sleep apnea) - ICD9: 327.23, ICD10: G47.33 Continue with BiPAP 6. Obesity, unspecified classification, unspecified obesity type, unspecified whether serious comorbidity present - ICD9: 278.00, ICD10: E66.9 Stable Recommend healthy diet and exercise 7. Acute pain of right shoulder - ICD9: 719.41, ICD10: M25.511 Recommend heat or ice 8. Acute pain of left knee - ICD9: 719.46, ICD10: M25.562 Continue with Ortho 9. Rapid heart rate - ICD9: 785.0, ICD10: R00.0 Get Stress test 10. FHx: heart disease - ICD9: V17.49, ICD10: Z82.49 Get Stress test Notify of lab and stress test results Follow up in 1 year or sooner if needed. I agree with the Chief Complaint, ROS, and Past Histories independently gathered by the clinical customer support representative and the remaining scribed note accurately describes my personal service to the patient. Sanchez Green MD The documentation for this note was completed by Kendy Moulton Ma acting as scribe for Sanchez Green MD. February 07, 2022 8:02 AM. Kendy Moulton Ma documented in this encounter [facility] 01-11-2021 History of Presen t illness Narrative Radiology Service Progress Note PATIENT NAME: Celso Shine DATE OF SERVICE: January 11, 2021 TIME: 6:39 PM PATIENT IDENTITY VERIFICATION COMPLETED USING TWO (2) IDENTIFIERS: Name and Date of confirmed by patient verbally. FALL SCREENING: Has the patient had 2 falls in the last year or 1 fall with injury or currently using an Ambulatory Assistive Device (Walker, Cane, Wheelchair, Crutches, etc.)? No PATIENT GENDER DATA: Male PATIENT RELEVANT IMPLANT DATA REVIEWED: Not Applicable RADIOLOGY DEPARTMENT: General X-ray: Exam(s) Completed: Upper Extremity X-Ray(s): Wrist, right PERIPHERAL IV DATA: Not applicable SIGNED BY: RT Tana(R) January 11, 2021 6:39 PM documented in this encounter [facility] 03-02-2020 History of Presen t illness Narrative Radiology Service Progress Note PATIENT NAME: Celso Shine DATE OF SERVICE: March 02, 2020 TIME: 11:12 AM PATIENT IDENTITY VERIFICATION COMPLETED USING TWO (2) IDENTIFIERS: Name and Date of confirmed by patient verbally. FALL SCREENING: Has the patient had 2 falls in the last year or 1 fall with injury or currently using an Ambulatory Assistive Device (Walker, Cane, Wheelchair, Crutches, etc.)? No PATIENT GENDER DATA: Male PATIENT RELEVANT IMPLANT DATA REVIEWED: Yes RADIOLOGY DEPARTMENT: General X-ray: Exam(s) Completed: Lower Extremity X-Ray(s): Foot, Right and Wt. Bearing: PERIPHERAL IV DATA: Not applicable SIGNED BY: RT Palma March 02, 2020 11:12 AM documented in this encounter [facility] Evaluation note Diagnosis Wellness examination- Primary Need for influenza vaccination Need for prophylactic vaccination and inoculation against influenza Need for COVID-19 vaccine Elevated blood pressure reading without diagnosis of hypertension BARRIE (obstructive sleep apnea) Obstructive sleep apnea (adult) (pediatric) Obesity, unspecified classification, unspecified obesity type, unspecified whether serious comorbidity present Acute pain of right shoulder Acute pain of left knee Rapid heart rate Tachycardia, unspecified FHx: heart disease Family history of other cardiovascular diseases Chest pain, unspecified type Vitamin D deficiency Unspecified vitamin D deficiency [facility] Diagnosis Left knee pain, unspecified chronicity- Primary [facility] Diagnosis FHx: heart disease Family history of other cardiovascular diseases Chest pain, unspecified type [facility] Diagnosis Acute left ankle pain- Primary Vitamin D deficiency Unspecified vitamin D deficiency [facility] Diagnosis Foot and ankle pain- Primary Foot and ankle pain [facility] Diagnosis Foot and ankle pain [facility] Diagnosis Acute left ankle pain [facility] Diagnosis Plantar fasciitis- Primary Plantar fascial fibromatosis Foot and ankle pain [facility] Diagnosis Right wrist pain Pain in joint, forearm [facility] Diagnosis Foot and ankle pain- Primary [facility] Diagnosis Swelling of right foot Foot pain, right Pain in limb [facility] Diagnosis Foot and ankle pain- Primary [facility] Diagnosis Wellness examination- Primary Essential hypertension, benign Allergic rhinitis, unspecified seasonality, unspecified trigger Obesity, unspecified class, unspecified obesity type, unspecified whether serious comorbidity present BARRIE (obstructive sleep apnea) Obstructive sleep apnea (adult) (pediatric) Foot and ankle pain Encounter for immunization Need for other specified prophylactic vaccination against single bacterial disease Vitamin D deficiency Unspecified vitamin D deficiency documented in this encounter [facility] note* Diagnosis Essential hypertension, benign- Primary Vitamin D deficiency Unspecified vitamin D deficiency Hyperlipidemia, mixed Mixed hyperlipidemia Class 3 severe obesity with body mass index (BMI) of 40.0 to 44.9 in adult, unspecified obesity type, unspecified whether serious comorbidity present (HCC) documented in this encounter [facility] noteNo assessment information availableWTrumbull [facility] Work Phone: Reason for referral (narrative)* Diagnostic Procedure Only (Routine) - Authorized Specialty Diagnoses / Procedures Referred By Contac t Referred To Contact MOLECULAR & FUNCTIONAL IMAGING Diagnoses FHx: heart disease Chest pain, unspecified type Procedures NM CARDIAC PERF STRESS/EXERCISE MYOCARDIAL SPECT MULTIPLE STUDIES Sanchez Green MD [address] [place] [address] Molecular & Functional Imaging [address] [place] [address] Referral ID Status Reason Start Date Expiration Date Visits Requested Visits Authorized [id number] Authorized Auto-Generat ed Referral 2 03/09/2023 1 1 [facility] for referral (narrative)* Diagnostic Procedure Only (Routine) - Pending Review Specialty Diagnoses / Procedures Referred By Contac t Referred To Contact XR IMAGING Diagnoses Left knee pain, unspecified chronicity Procedures XR KNEE GENERAL 4V AP BOTH/PA BOTH/LAT/MERC LEFT RADIOLOGIC EXAM KNEE COMPLETE 4/MORE VIEWS Ryan Caban MD [address] [facility] [place] [address] Xr Imaging Referral ID Status Reason Start Date Expiration Date Visits Requested Visits Authorized [id number] Pending Review Auto-Generat ed Referral 07/12/2022 08/11/2023 1 1 [facility] for referral (narrative)* Diagnostic Procedure Only (Routine) - Closed Specialty Diagnoses / Procedures Referred By Contac t Referred To Contact MOLECULAR & FUNCTIONAL IMAGING Diagnoses FHx: heart disease Chest pain, unspecified type Procedures NM CARDIAC PERF STRESS/EXERCISE MYOCARDIAL SPECT MULTIPLE STUDIES Sanchez Green MD [address] [place] [address] Molecular & Functional Imaging [address] [place] [address] Referral ID Status Reason Start Date Expiration Date V isits Requested Visits Authorized [id number] Closed Auto-Generate d Referral 02/07/2022 03/09/2023 1 1 [facility] for referral (narrative)* Diagnostic Procedure Only (Routine) - Closed Specialty Diagnoses / Procedures Referred By Contac t Referred To Contact XR IMAGING Diagnoses Acute left ankle pain Procedures XR ANKLE GENERAL 3V AP/LAT/OBL LEFT RADEX ANKLE COMPLETE MINIMUM 3 VIEWS Sanchez Green MD [address] [place] [address] [place] [address] Referral ID Status Reason Start Date Expiration Date V isits Requested Visits Authorized [id number] Closed Auto-Generate d Referral 08/16/2023 09/14/2024 1 1 T [facility] for referral (narrative)* Diagnostic Procedure Only (Routine) - Closed Specialty Diagnoses / Procedures Referred By Contac t Referred To Contact XR IMAGING Diagnoses Foot and ankle pain Procedures XR ANKLE GENERAL 3V AP/LAT/OBL RIGHT RADEX ANKLE COMPLETE MINIMUM 3 VIEWS Sanchez Green MD [address] [place] [address] [place] [address] Referral ID Status Reason Start Date Expiration Date V isits Requested Visits Authorized [id number] Closed Auto-Generate d Referral 12/25/2023 01/23/2025 1 1 * Diagnostic Procedure Only (Routine) - Closed Specialty Diagnoses / Procedures Referred By Contac t Referred To Contact XR IMAGING Diagnoses Foot and ankle pain Procedures XR FOOT GENERAL 3V AP/LAT/OBL RIGHT RADEX FOOT COMPLETE MINIMUM 3 VIEWS Sanchez Green MD [address] [place] [address] [place] [address] Referral ID Status Reason Start Date Expiration Date V isits Requested Visits Authorized [id number] Closed Auto-Generate d Referral 12/25/2023 01/23/2025 1 1 * Physical Therapy (Routine) - Authorized Specialty Diagnoses / Procedures Referred By Contac t Referred To Contact [facility] Diagnoses Foot and ankle pain Procedures CONSULT TO PHYSICAL THERAPY PHYSICAL THERAPY [facility] COMPLEX 45 MINS Sanchez Green MD [address] [place] [address] [facility] [address] [place] [address] Referral ID Status Reason Start Date Expiration Date Visits Requested Visits Authorized [id number] Authorized Auto-Generat ed Referral 01/21/2023 01/21/2024 99 99 * Consult, Test, Treat (Routine) - Authorized Specialty Diagnoses / Procedures Referred By Contac t Referred To Contact Podiatry Diagnoses Foot and ankle pain Procedures CONSULT TO PODIATRY OFFICE/OUTPATIENT [facility] MDM 60 MINUTES Sanchez Green MD [address] [place] [address] Referral ID Status Reason Start Date Expiration Date Visits Requested Visits Authorized [id number] Authorized PCP Requested Referral 12/25/2023 12/24/2024 1 1 [facility] for referral (narrative)* Diagnostic Procedure Only (Routine) - Closed Specialty Diagnoses / Procedures Referred By Contac t Referred To Contact XR IMAGING Diagnoses Foot and ankle pain Procedures XR ANKLE GENERAL 3V AP/LAT/OBL RIGHT RADEX ANKLE COMPLETE MINIMUM 3 VIEWS Sanchez Green MD [address] [place] [address] [place] [address] Referral ID Status Reason Start Date Expiration Date V isits Requested Visits Authorized [id number] Closed Auto-Generate d Referral 12/25/2023 01/23/2025 1 1 * Diagnostic Procedure Only (Routine) - Closed Specialty Diagnoses / Procedures Referred By Contac t Referred To Contact XR IMAGING Diagnoses Foot and ankle pain Procedures XR FOOT GENERAL 3V AP/LAT/OBL RIGHT RADEX FOOT COMPLETE MINIMUM 3 VIEWS Sanchez Green MD [address] [place] [address] [place] [address] Referral ID Status Reason Start Date Expiration Date V isits Requested Visits Authorized [id number] Closed Auto-Generate d Referral 12/25/2023 01/23/2025 1 1 [facility] for referral (narrative)* Diagnostic Procedure Only (Routine) - Closed Specialty Diagnoses / Procedures Referred By Contac t Referred To Contact XR IMAGING Diagnoses Acute left ankle pain Procedures XR ANKLE GENERAL 3V AP/LAT/OBL LEFT RADEX ANKLE COMPLETE MINIMUM 3 VIEWS Sanchez Green MD [address] [place] [address] [place] [address] Referral ID Status Reason Start Date Expiration Date V isits Requested Visits Authorized [id number] Closed Auto-Generate d Referral 08/16/2023 09/14/2024 1 1 [facility] for referral (narrative)* Diagnostic Procedure Only (Urgent) - Closed Specialty Diagnoses / Procedures Referred By Contac t Referred To Contact XR IMAGING Diagnoses Right wrist pain Procedures XR WRIST INJURY 4V PA/LAT/OBL/SCAPH RT X-RAY WRIST COMPLET MIN 3 VIEWS Paola Gale APRN.CNP [address] [place] [address] [place] [address] Referral ID Status Reason Start Date Expiration Date V isits Requested Visits Authorized [id number] Closed Auto-Generate d Referral 01/11/2021 02/10/2022 1 1 [facility] for referral (narrative)No reason for referral information availableWTrumbull Regional [facility] Center Work Phone: [facility] for visit Narrative* Diagnostic Procedure Only (Routine) - Closed Specialty Diagnoses / Procedures Referred By Contac t Referred To Contact MOLECULAR & FUNCTIONAL IMAGING Diagnoses FHx: heart disease Chest pain, unspecified type Procedures NM CARDIAC PERF STRESS/EXERCISE MYOCARDIAL SPECT MULTIPLE STUDIES Sanchez Green MD [facility] [place] [address] Molecular & Functional Imaging [address] [place] [address] Referral ID Status Reason Start Date Expiration Date V isits Requested Visits Authorized [id number] Closed Auto-Generate d Referral 02/07/2022 03/09/2023 1 1 [facility] for visit Narrative* Diagnostic Procedure Only (Routine) - Closed Specialty Diagnoses / Procedures Referred By Contac t Referred To Contact XR IMAGING Diagnoses Foot and ankle pain Procedures XR ANKLE GENERAL 3V AP/LAT/OBL RIGHT RADEX ANKLE COMPLETE MINIMUM 3 VIEWS Sanchez Green MD [facility] [place] [address] [place] [address] Referral ID Status Reason Start Date Expiration Date V isits Requested Visits Authorized [id number] Closed Auto-Generate d Referral 12/25/2023 01/23/2025 1 1 [facility] for visit Narrative* Diagnostic Procedure Only (Routine) - Closed Specialty Diagnoses / Procedures Referred By Contac t Referred To Contact XR IMAGING Diagnoses Acute left ankle pain Procedures XR ANKLE GENERAL 3V AP/LAT/OBL LEFT RADEX ANKLE COMPLETE MINIMUM 3 VIEWS Sanchez Green MD [address] [place] [address] [place] [address] Referral ID Status Reason Start Date Expiration Date V isits Requested Visits Authorized [id number] Closed Auto-Generate d Referral 08/16/2023 09/14/2024 1 1 [facility] N[facility]* Diagnostic Procedure Only (Urgent) - Closed Specialty Diagnoses / Procedures Referred By Contac t Referred To Contact XR IMAGING Diagnoses Right wrist pain Procedures XR WRIST INJURY 4V PA/LAT/OBL/SCAPH RT X-RAY WRIST COMPLET MIN 3 VIEWS Paola Gale APRN.[employer] [address] [place] [address] [place] [address] Referral ID Status Reason Start Date Expiration Date V isits Requested Visits Authorized [id number] Closed Auto-Generate d Referral 01/11/2021 02/10/2022 1 1 [facility] Summary Purpose Family History Relationship Condition Age at Onset Recorded Date/T preethi Unknown Family History?- Unknown October 04, 2016 6:12pm Family History?Heart Disease Unknown October 04, 2016 6:12pm Advance Directives No Advanced Directives Records FoundNo Advanced Directives Records Found Additional Source Comments Source Comments (unrecognize d section and content) In the event this informatio n is protected by the Federal Confidentiality of Alcohol and Drug Abuse Patient Records regulations: The Federal rules restrict any use of the information to criminally investigate or prosecute any alcohol or drug abuse patient.[facility] Inc[facility] the event this information is protected by the Federal Confidentiality of Alcohol and Drug Abuse Patient Records regulations: The Federal rules restrict any use of the information to criminally investigate or prosecute any alcohol or drug abuse patient.[facility] IncIn the event this information is protected by the Federal Confidentiality of Alcohol and Drug Abuse Patient Records regulations: The Federal rules restrict any use of the information to criminally investigate or prosecute any alcohol or drug abuse patient.[facility] IncIn the event this information is protected by the Federal Confidentiality of Alcohol and Drug Abuse Patient Records regulations: The Federal rules restrict any use of the information to criminally investigate or prosecute any alcohol or drug abuse patient.[facility] IncIn the event this information is protected by the Federal Confidentiality of Alcohol and Drug Abuse Patient Records regulations: The Federal rules restrict any use of the information to criminally investigate or prosecute any alcohol or drug abuse patient.[facility] Inc[facility] the event this information is protected by the Federal Confidentiality of Alcohol and Drug Abuse Patient Records regulations: The Federal rules restrict any use of the information to criminally investigate or prosecute any alcohol or drug abuse patient.[facility] IncIn the event this information is protected by the Federal Confidentiality of Alcohol and Drug Abuse Patient Records regulations: The Federal rules restrict any use of the information to criminally investigate or prosecute any alcohol or drug abuse patient.[facility] IncIn the event this information is protected by the Federal Confidentiality of Alcohol and Drug Abuse Patient Records regulations: The Federal rules restrict any use of the information to criminally investigate or prosecute any alcohol or drug abuse patient.[facility] IncIn the event this information is protected by the Federal Confidentiality of Alcohol and Drug Abuse Patient Records regulations: The Federal rules restrict any use of the information to criminally investigate or prosecute any alcohol or drug abuse patient.[facility] IncIn the event this information is protected by the Federal Confidentiality of Alcohol and Drug Abuse Patient Records regulations: The Federal rules restrict any use of the information to criminally investigate or prosecute any alcohol or drug abuse patient.[facility] IncIn the event this information is protected by the Federal Confidentiality of Alcohol and Drug Abuse Patient Records regulations: The Federal rules restrict any use of the information to criminally investigate or prosecute any alcohol or drug abuse patient.[facility] IncIn the event this information is protected by the Federal Confidentiality of Alcohol and Drug Abuse Patient Records regulations: The Federal rules restrict any use of the information to criminally investigate or prosecute any alcohol or drug abuse patient.[facility] IncIn the event this information is protected by the Federal Confidentiality of Alcohol and Drug Abuse Patient Records regulations: The Federal rules restrict any use of the information to criminally investigate or prosecute any alcohol or drug abuse patient.[facility] IncIn the event this information is protected by the Federal Confidentiality of Alcohol and Drug Abuse Patient Records regulations: The Federal rules restrict any use of the information to criminally investigate or prosecute any alcohol or drug abuse patient.[facility] IncIn the event this information is protected by the Federal Confidentiality of Alcohol and Drug Abuse Patient Records regulations: The Federal rules restrict any use of the information to criminally investigate or prosecute any alcohol or drug abuse patient.[facility] IncIn the event this information is protected by the Federal Confidentiality of Alcohol and Drug Abuse Patient Records regulations: The Federal rules restrict any use of the information to criminally investigate or prosecute any alcohol or drug abuse patient.[facility] IncIn the event this information is protected by the Federal Confidentiality of Alcohol and Drug Abuse Patient Records regulations: The Federal rules restrict any use of the information to criminally investigate or prosecute any alcohol or drug abuse patient.[facility] IncIn the event this information is protected by the Federal Confidentiality of Alcohol and Drug Abuse Patient Records regulations: The Federal rules restrict any use of the information to criminally investigate or prosecute any alcohol or drug abuse patient.[facility] Reason for Visit (unrecogniz ed section and content) Reason Comments PT Discharge Specialty Diagnoses / Procedures Referred By Cesar t Referred To Contact [facility] Diagnoses Foot and ankle pain Procedures CONSULT TO PHYSICAL THERAPY PHYSICAL THERAPY EVALUATION HIGH COMPLEX 45 MINS Sanchez Green MD [address] [place] [address] [facility] [address] [address] [place] [address] Referral ID Status Reason Start Date Expiration Date Visits Requested Visits Authorized [id number] Authorized Auto-Generat ed Referral 04/23/2023 04/22/2024 99 99 Reason Comments Physical Therapy Reason Onset Date Comments Physical Immunizations 02/07/2022 Flu vaccination Reason Comments Radiology NM Specialty Diagnoses / Procedures Referred By Cesar hernández Referred To Contact MOLECULAR & FUNCTIONAL IMAGING Diagnoses FHx: heart disease Chest pain, unspecified type Procedures NM CARDIAC PERF STRESS/EXERCISE MYOCARDIAL SPECT MULTIPLE STUDIES Sanchez Green MD [address] [place] [address] Molecular & Functional Imaging [address] [place] [address] Referral ID Status Reason Start Date Expiration Date V isits Requested Visits Authorized [id number] Closed Auto-Generate d Referral 02/07/2022 03/09/2023 1 1 Reason Comments Ankle Pain Left ankle Edema Feet, lissette Reason Comments Foot Pain (Midfoot) Reason Comments PT Eval Referral ID Status Reason Start Date Expiration Date Visits Requested Visits Authorized [id number] Authorized Auto-Generat ed Referral 01/21/2023 01/21/2024 99 99 Reason Comments Pain Swelling Specialty Diagnoses / Procedures Referred By Cesar t Referred To Contact Podiatry Diagnoses Foot and ankle pain Procedures CONSULT TO PODIATRY OFFICE/OUTPATIENT [facility] 60 MINUTES Sanchez Green MD [address] [place] [address] Referral ID Status Reason Start Date Expiration Date V isits Requested Visits Authorized [id number] Closed PCP Requested Referral 12/25/2023 12/24/2024 1 1 Reason Comments Wellness Reason Comments Follow Up 1 mo follow up BP Care Teams (unrecognized sec tion and content) Assembler Faucets Relationship Specialty Start Date End Date Sanchez Green MD [address] [place] [address] PCP - General Family Medicine 11/26/10 Assembler Faucets Relationship Specialty Start Date End Date Sanchez Green MD [address] [place] [address] PCP - General Family Medicine 11/26/10 Assembler Faucets Relationship Specialty Start Date End Date Sanchez Green MD [address] [place] [address] PCP - General Family Medicine 11/26/10 Assembler Faucets Relationship Specialty Start Date End Date Sanchez Green MD [address] [place] [address] PCP - General Family Medicine 11/26/10 Assembler Faucets Relationship Specialty Start Date End Date Sanchez Green MD [address] [place] [address] PCP - General Family Medicine 11/26/10 Assembler Faucets Relationship Specialty Start Date End Date Sanchez Green MD [address] [place] [address] PCP - General Family Medicine 11/26/10 Assembler Faucets Relationship Specialty Start Date End Date Sanchez Green MD [address] [facility] [place] [address] PCP - General Family Medicine 11/26/10 Assembler Faucets Relationship Specialty Start Date End Date Sanchez Green MD [address] [place] [address] PCP - General Family Medicine 11/26/10 Assembler Faucets Relationship Specialty Start Date End Date Sanchez Green MD [address] [place] [address] PCP - General Family Medicine 11/26/10 Assembler Faucets Relationship Specialty Start Date End Date Sanchez Green MD [address] [place] [address] PCP - General Family Medicine 11/26/10 Assembler Faucets Relationship Specialty Start Date End Date Sanchez Green MD [address] [place] [address] PCP - General Family Medicine 11/26/10 Assembler Faucets Relationship Specialty Start Date End Date Sanchez Green MD [address] [facility] [place] [address] PCP - General Family Medicine 11/26/10 Assembler Faucets Relationship Specialty Start Date End Date Sanchez Green MD [address] [facility] [place] [address] PCP - General Family Medicine 11/26/10 Assembler Faucets Relationship Specialty Start Date End Date Sanchez Green MD [address] [place] [address] PCP - General Family Medicine 11/26/10 [employer] Relationship Specialty Start Date End Date Sanchez Green MD [address] [place] [id number] PCP - General Family Medicine 11/26/10 [employer] Relationship Specialty Start Date End Date Sanchez Green MD [address] [place], [place] [id number] PCP - General Family Medicine 11/26/10 Team Status: Active Member Role Status Dates Dr. Duncan Carter MD Primary Care Provider Active Team Status: Inactive Member Role Status Dates Dr. Sanchez Green MD Primary Care Provider Active Start: September 19, 2024 End: September 19, 2024 Dr. Duncan Carter MD Attending Provider Active Start: September 19, 2024 End: September 19, 2024 Dr. Duncan Carter MD Referring Provider Active Start: September 19, 2024 End: September 19, 2024 (unrecognized sect ion and content) No Status Records FoundNo Status Records Found INFORMATION SOURCE (unrecogn ized section and content) DATE CREATED AUTHOR 02/26/2024 [facility] DATE CREATED AUTHOR AUTHOR'S TERE SHOOK 09/26/2024 [facility] Goals (unrecognized section and content) Goals may be documented in a n alternate section FOR RECORDS PERTAINING TO PATIENTS WHO ARE OR HAVE BEEN ENROLLED IN A CHEMICAL DEPENDENCY/SUBSTANCEABUSE PROGRAM, SOME INFORMATION MAY BE OMITTED. This clinical summary was aggregated from multiple sources. Caution should be exercised in using it in the provision of clinical care. This summary normalizes information from multiple sources, and as a consequence, information in this document may materially change the coding, format and clinical context of patient data. In addition, data may be omitted in some cases. CLINICAL DECISIONS SHOULD BE BASED ON THE PRIMARY CLINICAL RECORDS. [employer] provides no warranty or guarantee of the accuracy or completeness of information in this document.
== END | disposition home or self-care (01) ==
LOC: OPUS 15:12 → US 15:14
PROVIDERS: PCP Family Medicine; Referring Provider Family Medicine; Visit Provider Family Medicine
DX: I10 Essential (primary) hypertension (principal)
CPT/HCPCS: 76770

== ENCOUNTER → 2024-10-01 | Outpatient (CLI) | payer BC, SELFPAY ==
--- NOTE | 2024-10-01 08:52 | RDU_ITS ---
Reason For Study Reason For Study: HTN Right Renal Artery Left Renal Artery Right renal artery ostium 82.5/25.5 Left renal artery ostium 51.4/16.9 RSV/EDV. PSV/EDV. Right renal artery proximal 43.0/16.3 Left renal artery proximal PSV/EDV PSV/EDV. 52.4/16.9 . Right renal artery mid 56.3/19.6 PSV/EDV. Left renal artery mid 59.7/18.0 PSV/EDV . Right renal artery distal 54.1/16.3 Left renal artery distal 53.9/22.7 PSV/EDV. PSV/EDV. Right RAR 0.93. Left RAR 0.67. Right Renal Parenchyma Left Renal Parenchyma Upper Pole Medula 24.7/8.7 PSV/EDV. Left upper pole medulla 37.4/14.1 Right upper pole medulla EDR 0.40 . PSV/EDV . Right upper pole medulla R.I. 0.65 . Left upper pole medulla EDR 0.40 . Upper Vicente Cortx 19.8/8.1 PSV/EDV. Left upper pole medulla R.I. 0.62 . Right upper pole cortex EDR 0.40 . UP Cortex 20.2/7.9 PSV/EDV. Right upper pole cortex R.I. 0.59 . Left upper pole cortex EDR 0.40 . Right lower Pole medulla 27.1/9.9 Left upper pole cortex R.I. 0.61 . PSV/EDV . Left lower Pole medulla 28.2/10.4 Right lower pole medulla EDR 0.40 . PSV/EDV . Right lower pole medulla R.I. 0.63 . Left lower pole medulla EDR 0.40 . Lower Pole Cortex 16.7/6.9 PSV/EDV. Left lower pole medulla R.I. 0.63 . Right lower pole cortex EDR 0.40 . Lower Pole Cortx 20.2/7.9 PSV/EDV. Right lower pole cortex R.I. 0.59 . Left lower pole cortex EDR 0.40 . Right Renal Hilar Left lower pole cortex R.I. 0.61 . Right Hilar avg 65.4/17.4 PSV/EDV. Left Renal Hilar Right hilar acceleration time 10 m/sec. LT Hilar avg 98.4/32.7 PSV/EDV . Right Renal Dimensions Left hilar acceleration time 30 m/sec. Right kidney size 11.79 cm . Left Renal Dimensions Right cortical dimension 1.63 cm . Left kidney size 12.28 cm . Left cortical dimension 1.87 cm . Aorta Proximal abdominal aorta 2.36 x 2.68 cm . Proximal abdominal aorta peak systolic velocity is 88.6 cm/sec . Distal abdominal aorta 1.81x 1.94 cm . Distal abdominal aorta peak systolic velocity is 124.2 cm/sec . VL/Renal Artery Duplex Ultrasound Interpretation Summary Right renal artery patent with normal velocities and no evidence of stenosis. Left renal artery patent with normal velocities and no evidence of stenosis. Right renal vein patent. Left renal vein patent. Right kidney normal in size. Left kidney normal in size. Ordering Physician: Duncan Carter Referring Physician: Duncan Carter Performed By: Brett Child RVT
== END | disposition home or self-care (01) ==
PROVIDERS: PCP Family Medicine; Referring Provider Family Medicine; Visit Provider Family Medicine
DX: I10 Essential (primary) hypertension (principal)
CPT/HCPCS: 93975

== ENCOUNTER → 2024-10-28 | Outpatient (CLI) | payer BC, SELFPAY ==
--- NOTE | 2024-10-28 07:19 | US_ITS ---
PROCEDURE: ABD LIMITED W/ ELASTOGRAPHY REASON FOR EXAM: ELEVATED LFTS COMPARISON: None. TECHNIQUE: Right upper quadrant abdominal ultrasound. Mavis ElastQ Imaging shear wave elastography for non-invasive assessment of liver tissue stiffness. Mavis EPIQ Elite. FINDINGS: LIVER: Size: Enlarged (hepatomegaly) Length: 20.4 cm Echotexture: Diffusely echogenic suggesting fatty infiltration Contour: Normal Lesions: None identified Elastography: EQI Med: 10.2 kPa EQI Med [place]: 1.83 m/s IQR/Med: 22 %* GALLBLADDER: Normal COMMON BILE DUCT: Normal measuring 4 mm . PANCREAS: Obscured by bowel gas. Visualized portions of the right kidney are unremarkable. No right upper quadrant ascites. US/ABD Limited w/ Elastography IMPRESSION: MODERATE TO SEVERE HEPATIC FIBROSIS Hepatomegaly. Diffuse fatty infiltration of the liver. Reference Values: SRU <1.37 m/s (5.7kPa): No to mild fibrosis 1.37 m/s - 2.2 m/s: Moderate to severe fibrosis >2.2 m/s (15kPa): Significant fibrosis / cirrhosis METAVIR Score F2 or higher: 1.34 m/s (5.7kPa) F3 or higher: 1.55 m/s (7.3kPa) F4: 1.80 m/s (10kPa) * If the IQR/Med is >30%, the variance in the measurements is a large and the a ccuracy of the measurement may be in question. Reading Location: [place] [id number]
== END | disposition home or self-care (01) ==
LOC: US 07:13
PROVIDERS: PCP Family Medicine; Referring Provider Family Medicine; Visit Provider Family Medicine
DX: R79.89 Other specified abnormal findings of blood chemistry (principal)
CPT/HCPCS: 76705; 76981

== ENCOUNTER → 2025-02-11 | Outpatient (CLI) | payer BC, SELFPAY ==
[2025-02-11 07:38] LABS: Mucous, Urine 0 SEEN /hpf (<or=2+); Red Blood Cells-Urine 0 SEEN /hpf (0-5); Squamous Epithelial Cells - UA 0 SEEN /hpf (0-5)
[2025-02-11 10:32] LABS: Hematocrit 45.9 % (40-54); Hemoglobin 15.2 g/dL (13.0-16.5); Immature Granulocytes Count 0.040 X10^3/uL (0.0-0.0); Mean Corp Hgb Conc 33.1 g/dL (32-36); Mean Corpuscular Volume 88.6 fL (80-94); Mean Platelet Vol. 10.3 fl (6.2-12.0); NRBC Flagged by Analyzer 0 % (0-5); Platelet Count 302 K/mm3 (150-450); RBC Distribution Width CV 13.3 % (11.6-14.6); RBC Distribution Width SD 43.7 fl (35.1-43.9); Red Blood Count 5.18 M/mm3 (4.6-6.2); White Blood Count 8.3 K/mm3 (4.4-11.0)
[2025-02-11 10:37] LABS: Color, Urine Straw (Yellow); Glucose, Dipstick Normal (Normal); Ketone-Dipstick Negative (Negative); Leukocyte Esterase-Dipstick Negative /ul (Negative); Nitrite-Dipstick Negative (Negative); Occult Blood-Urine 10 /ul (Negative); Protein-Dipstick Negative (Negative); Specific Gravity, Urine 1.010 (1.002-1.030); Urine Bilirubin Dipstick Negative (Negative)
[2025-02-11 10:55] LABS: AST(SGOT) 21 U/L (<=37); Alanine Aminotransfer ALT/SGPT 33 U/L (<=46); Albumin, Serum 4.1 g/dL (3.5-5.0); Alkaline Phosphatase 80 U/L (40-129); Anion Gap 12 (5-15); BUN 15 mg/dL (4-19); BUN/Creat Ratio 14.7 RATIO (10-20); Calcium,Total 9.1 mg/dL (7.6-11.0); Carbon Dioxide 23.9 mmol/L (21.0-32.0); Chloride 104 mmol/L (98-108); Cholesterol 174 mg/dL (<=200); Globulin 3.7 g/dL (2.2-4.2); Glucose 91 mg/dL (70-99); Low Density Lipoprotein Calc. 125 mg/dL; Potassium 3.9 mmol/L (3.3-5.1); Triglycerides 99 mg/dL; Very Low Density Lipoprotein 20 mg/dL (5-40); cholesterol:hdl ratio screen 5.59
== END | disposition home or self-care (01) ==
LOC: MTLAB 07:29
PROVIDERS: PCP Family Medicine; Referring Provider Family Medicine; Visit Provider Family Medicine
DX: I10 Essential (primary) hypertension (principal)
CPT/HCPCS: 36415; 80053; 80061; 81001; 85025